=== PATIENT | female | born 1935 | race American Indian/Alaskan Native ===

== ENCOUNTER → 2016-09-04 | Outpatient (CLI) | payer MEDICARE, MEDICAID | END | disposition home or self-care (01) | LOC: MW.CHFP 15:18 | PROVIDERS: ATTEND Emergency Medicine | DX: I10 Essential (primary) hypertension (principal); E11.9 Type 2 diabetes mellitus without complications; K92.2 Gastrointestinal hemorrhage, unspecified | CPT/HCPCS: 36415; 80048; 83036; 85027; G0463 ==

== ENCOUNTER 2016-10-06 09:39 | Day surgery (SDC) | payer MEDICARE, MEDICAID ==
--- NOTE | 2016-10-05 12:33 | PCM.PREANE ---
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 Respiratory: Reports: no symptoms Cardiovascular: Reports: no symptoms GI: Reports: no symptoms - PHYSICAL ASSESSMENT Height: 1.63 m Weight: 59.874 kg ASA Class: 2 Mental Status: alert & oriented x3 Dentition: Reports: dentures, partial, missing tooth/teeth ROM/Head Extension: full Respiratory Status: lungs clear to auscultation bilaterally Cardiovascular Status: regular rate & rhythm, normal S1, S2 - ALLERGIES Allergies/Adverse Reactions: Allergies Allergy/AdvReac Type Severity Reaction Status Date / Time tramadol Allergy Headache Verified 08/17/16 11:59 - BLOOD Blood Available: No - ANESTHESIA PLAN Preop Beta Ninoska: No Anesthesia Type Planned: MAC - ACKNOWLEDGEMENTS Pt an appropriate candidate for the planned anesthesia: Yes Alternatives and risks of anesthesia discussed w pt/guardian: Yes Pt/Guardian understands and agree with anesthesia plan: Yes PreAnesthesia Questionnaire HEENT History: Reports: Hard of hearing, Impaired vision Other HEENT History: wears glasses, top denture, bottom partial, armani hearing aids Cardiovascular History: Reports: Hypertension Respiratory History: Reports: TB Gastrointestinal History: Reports: GERD, GI bleed Other Gastrointestinal History: Heartburn/GERD, gastritis Genitourinary History: Reports: Other (see below) Other Genitourinary History: recent hospitalization for acute kidney injury 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: Musculoskeletal History: Reports: Fracture Other Musculoskeletal History: hx: fractured Wrist, Low and Mid back pain at times Neurological History: Reports: Migraines Other Neuro History: Past hx: Migraines, some headaches Other Psychiatric History: Anxiety with riding car Long trips Endocrine/Metabolic History: Reports: Diabetes, type II, Hypothyroidism Other Endocrine/Metabolic History: Hypothyroidism - Infectious Disease History Infectious Disease History: Reports: Measles - Past Surgical History Head Surgeries/Procedures: Reports: None HEENT Surgical History: Reports: Cataract surgery GI Surgical History: Reports: Cholecystectomy Other Musculoskeletal Surgeries/Procedures:: surgery for fx patella - SUBSTANCE USE Smoking Status *Q: Former Smoker Tobacco Use Within Last Twelve Months: Cigarettes Second Hand Smoke Exposure: No Recreational Drug Use History: No - HOME MEDS Home Medications: Home Meds Aspirin [Halfprin] 81 mg PO BRK 01/21/15 [History] Hydrochlorothiazide 25 mg PO BRK 01/21/15 [History] Levothyroxine Sodium [Synthroid] 100 mcg PO ACBRK 01/21/15 [History] Lisinopril 20 mg PO DAILY 01/21/15 [History] amLODIPine Besylate [Amlodipine Besylate] 10 mg PO DAILY 01/21/15 [History] Calcium Carbonate [Tums] 1 tab.chew PO ASDIRECTED PRN 10/03/16 [History] - CURRENT (IN HOUSE) MEDS Current Meds: Current Medications Lactated Ringer's (Ringers, Lactated) 1,000 mls @ 125 mls/hr IV ASDIRECTED ANA MARÍA
[~2016-10-06 09:39] MED LIST: Lactated Ringers 1,000 ML IV SCH; Propofol 200 MG/20 ML SDV ONE
--- NOTE | 2016-10-06 11:57 | PCM.OPNOTE ---
- General Post-Op/Procedure Note Date of Surgery/Procedure: 10/06/16 Operative Procedure(s): Colonoscopy Pre Op Diagnosis: Change in bowel habits. Abdominal pain. Anemia. Rectal bleeding. Post-Op Diagnosis: Minimal sigmoid diverticulosis Anesthesia Technique: MAC (ASA II) Primary Surgeon: Andre Garzon Landscape Account Manager: Elzbieta Swenson Condition: Good Free Text/Narrative:: Dictation [id number]
[2016-10-06] MEDS ORDERED: Lactated Ringers 1,000 ML IV SCH (12:00)
--- NOTE | 2016-10-06 12:16 | PCM.POSTAN ---
POST ANESTHESIA ASSESSMENT - MENTAL STATUS Mental Status: alert, oriented - RESPIRATORY Respiratory Status: respiratory rate WNL, airway patent - CARDIOVASCULAR CV Status: pulse rate WNL, blood pressure stable - GASTROINTESTINAL GI Status: no symptoms - POST OP HYDRATION Hydration Status: adequate & stable
--- NOTE | 2016-10-06 12:17 | PCM48HPAN ---
Post Anesthesia Note - EVALUATION WITHIN 48HRS OF ANESTHETIC Vital Signs in Normal Range: Yes Patient Participated in Evaluation: Yes Respiratory Function Stable: Yes Airway Patent: Yes Cardiovascular Function Stable: Yes Hydration Status Stable: Yes Pain Control Satisfactory: Yes Nausea and Vomiting Control Satisfactory: Yes Mental Status Recovered: Yes
[2016-10-06 12:25] VITALS: BP 129/61
--- NOTE | 2016-10-06 15:14 | OR ---
SURGEON: Andre Garzon M.D. DATE OF PROCEDURE: 10/06/2016 OPERATION PERFORMED: Colonoscopy. FIELD SERVICE CONSULTANT: neurosurgical physician assistant: Dr. Swenson. ANESTHESIA: MAC. ASA CLASSIFICATION: II. PREOPERATIVE DIAGNOSES: 1. Change in bowel habits. 2. Abdominal pain. 3. Anemia. 4. Rectal bleeding. POSTOPERATIVE DIAGNOSIS: Minimal sigmoid diverticulosis. DESCRIPTION OF PROCEDURE: The patient was taken to the endoscopy room, positioned on the endoscopy table in the left lateral decubitus position. Time-out was called for appropriate identification of the patient and procedure. Monitored anesthesia care was provided. The colonoscope was inserted into the rectum and advanced with minimal difficulty to the cecum, where the colonoscope was retroflexed to visualize the ascending colon from below. The colonoscope was then straightened and slowly withdrawn. Cecum was identified by internal landmarks and external pressure. The cecum, ascending colon, hepatic flexure, transverse colon, splenic flexure, and descending colon showed no tumors, polyps, diverticula, or angiodysplasia. There was no evidence of inflammatory bowel disease. Few small scattered diverticula were noted in the sigmoid colon. No stricture, spasm, or bleeding was noted. No polyps were encountered. The colonoscope was withdrawn to the rectum and retroflexed to visualize the anal orifice from above. Again, no tumors or polyps were seen and there were no acute hemorrhoidal changes. The colonoscope was straightened, the rectum aspirated, and the colonoscope removed. The patient tolerated the procedure well and was taken to recovery room in stable condition. ALMA / TEODORA /[id number]
== END 2016-10-06 12:45 | disposition home or self-care (01) ==
LOC: MW.SDS 09:39
PROVIDERS: ATTEND Surgery
PROC: 0DJD8ZZ Inspection of Lower Intestinal Tract, Via Natural or Artificial Opening Endoscopic (ICD-10-PCS; principal; 2016-10-06)
DX: K57.30 Diverticulosis of large intestine without perforation or abscess without bleeding (principal); I10 Essential (primary) hypertension; E03.9 Hypothyroidism, unspecified; E11.9 Type 2 diabetes mellitus without complications; K21.9 Gastro-esophageal reflux disease without esophagitis; Z88.8 Allergy status to other drugs, medicaments and biological substances; Z79.82 Long term (current) use of aspirin; Z79.899 Other long term (current) drug therapy; Z90.49 Acquired absence of other specified parts of digestive tract; Z98.890 Other specified postprocedural states; Z87.891 Personal history of nicotine dependence; Z86.11 Personal history of tuberculosis; Z98.49 Cataract extraction status, unspecified eye
CPT/HCPCS: 45378; 82962; J7120; J2704

== ENCOUNTER 2019-08-28 13:10 | Emergency (ER) | payer MEDICARE ==
--- NOTE | 2019-08-28 13:32 | EDM.PDOC ---
ED HPI GENERAL MEDICAL PROBLEM - General Chief Complaint: Respiratory Problem Stated Complaint: cough Time Seen by Provider: 08/28/19 13:21 Source of Information: Reports: Patient History Limitations: Reports: No Limitations - History of Present Illness INITIAL COMMENTS - FREE TEXT/NARRATIVE: HISTORY OF PRESENT ILLNESS: Patient is an 84 year old female who reports she has had a cough since Sunday initially white and now progressing to productive with green sputum with occasional wheezing. Has had tactile fever today. Reports generalized weakness and fatigue. Also reports generalized myalgias. Patient has had lower bilateral chest wall pain near lower ribs associated with coughing. Denies any retrosternal chest pain. No syncope. Denies any nausea or vomiting. Has had nonbloody diarrhea. No abdominal pain. Denies any urinary symptoms. No fever or neck stiffness. Denies any lower extremity swelling. No history of smoking. Patient has no history of asthma, COPD or CHF. REVIEW OF SYSTEMS: Other than the symptoms associated with the present events, the following is reported with regard to recent health: General: (+) fever. HENT: (-) congestion. Respiratory: (+) cough. Cardiovascular: (-) chest pain. GI: (-) abdominal pain. : (-) urinary complaints. Musculoskeletal: (+) generalized myalgias Endocrine: (+) generalized fatigue Neurological: (-) localized weakness. Skin: (-) rash PAST MEDICAL HISTORY: reviewed as per nursing notes SOCIAL HISTORY: reviewed as per nursing notes, MEDICATIONS: Per nurse's note ALLERGIES: Per nurse's note, reviewed by me PHYSICAL EXAMINATION: GENERALIZED APPEARANCE: well developed, well nourished in mild distress VITAL SIGNS: Per nurse's note, reviewed by me SKIN: Warm, dry; (-) cyanosis; (-) rash. HEAD: (-) scalp swelling, (-) tenderness. EYES: (-) conjunctival pallor, (-) scleral icterus. ENMT: (-) stridor; mucous membranes moist. NECK: (-) tenderness, (-) stiffness, CHEST AND RESPIRATORY: (-) rales, (-) rhonchi, (+)transient end expiratory wheezes; breath sounds equal bilaterally. HEART AND CARDIOVASCULAR: (-) irregularity; (-) murmur, (-) gallop. ABDOMEN AND GI: Soft; (-) tenderness, (-) guarding, (-) rebound, (-) palpable masses, EXTREMITIES: (-) deformity, (-) edema. NEURO AND PSYCH: Alert. Cranial nerves grossly intact; strength symmetric. gait steady DIAGNOSTICS: CXR: read by radiologist, reviewed by myself EKG: sb at [address]pm[address] no [address] elevation. Labs ordered as below EMERGENCY DEPARTMENT COURSE AND TREATMENT: Patient's condition remained stable during Emergency Department evaluation. Given duoneb here. Given IVF. BUN/cr noted. Pt has a history of kidney disease. Old records reviewed: previous BUN 17 -33, Cr ranging from 1-3.8 on prior records. To follow up with pcp regarding this. Influenza positive. Her fever started today but symptoms since Sunday. However, given her age, will treat. Based on my history, physical exam, and diagnostic evaluation, the patient appears to have symptoms consistent with influenza. There is a normal heart rate, normal oxygen saturation, a normal respiratory pattern and non-diagnostic exam. The patient appeared to be in no distress, appeared well-hydrated and was ambulating in the ED without difficulty. Discharge precautions were given with instructions to return if difficulty breathing, not tolerating oral food or fluids, any respiratory distress, or new symptoms. I encouraged follow-up with the primary care physician in 1-2 days for repeat exam. PLAN AND FOLLOW-UP: Patient received written and verbal instructions regarding this condition. Return to ED immediately with any new or worsening symptoms. Follow up to be arranged by patient with pcp in 1-2 days for further evaluation. Given discharge precautions. Patient expressed verbal understanding. - Related Data Allergies Allergy/AdvReac Type Severity Reaction Status Date / Time tramadol Allergy Headache Verified 08/28/19 13:15 Home Meds: Home Meds Aspirin [Halfprin] 81 mg PO BRK 01/21/15 [History] Hydrochlorothiazide 25 mg PO BRK 01/21/15 [History] Levothyroxine Sodium [Synthroid] 100 mcg PO ACBRK 01/21/15 [History] Lisinopril 20 mg PO DAILY 01/21/15 [History] amLODIPine Besylate [Amlodipine Besylate] 10 mg PO DAILY 01/21/15 [History] Calcium Carbonate [Tums] 1 tab.chew PO ASDIRECTED PRN 10/03/16 [History] Oseltamivir [Tamiflu] 75 mg PO BID 5 Days #10 cap 08/28/19 [Rx] Past Medical History HEENT History: Reports: Hard of Hearing, Impaired Vision Other HEENT History: wears glasses, top denture, bottom partial, armani hearing aids Cardiovascular History: Reports: Hypertension Respiratory History: Reports: TB Gastrointestinal History: Reports: GERD, GI Bleed Other Gastrointestinal History: Heartburn/GERD, gastritis Genitourinary History: Reports: Other (See Below) Other Genitourinary History: 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: Musculoskeletal History: Reports: Fracture Other Musculoskeletal History: hx: fractured Wrist, Low and Mid back pain at times Neurological History: Reports: Migraines Other Neuro History: Past hx: Migraines, some headaches Other Psychiatric History: Anxiety with riding car Long trips Endocrine/Metabolic History: Reports: Diabetes, Type II, Hypothyroidism Other Endocrine/Metabolic History: Hypothyroidism - Infectious Disease History Infectious Disease History: Reports: Chicken Pox - Past Surgical History Head Surgeries/Procedures: Reports: None HEENT Surgical History: Reports: Cataract Surgery Other Musculoskeletal Surgeries/Procedures:: surgery for fx patella Social & Family History - Family History Family Medical History: Noncontributory HEENT: Reports: Impaired Vision Cardiac: Reports: CAD, [place] OBGYN: Reports: Endocrine/Metabolic: Reports: Diabetes, type II - Tobacco Use Smoking Status *Q: Never Smoker - Caffeine Use Caffeine Use: Reports: Coffee, Soda, Tea - Recreational Drug Use Recreational Drug Use: No ED ROS GENERAL - Review of Systems Review Of Systems: See Below (see dictation) ED EXAM, GENERAL - Physical Exam Exam: See Below (see dictation) Course - Vital Signs Last Recorded V/S: Last Vital Signs Temp 97.9 F 08/28/19 15:04 Pulse 56 L 08/28/19 15:04 Resp 20 08/28/19 13:13 BP 147/54 H 08/28/19 15:04 Pulse Ox 94 L 08/28/19 15:04 - Orders/Labs/Meds Orders: Active Orders 24 hr Category Date Time Status EKG 12 Lead [EKG Documentation Completion] [RC] STAT Care 08/28/19 13:51 Active RT Aerosol Therapy [RC] ASDIRECTED Care 08/28/19 15:05 Active CULTURE BLOOD [BC] Stat Lab 08/28/19 13:00 Received CULTURE BLOOD [BC] Stat Lab 08/28/19 14:15 Results Sodium Chloride 0.9% [Normal Saline] 1,000 ml Med 08/28/19 14:52 Active IV .Bolus Blood Culture x2 Reflex Set [OM.PC] Stat Oth 08/28/19 13:27 Ordered Medication Orders Sodium Chloride (Normal Saline) 1,000 mls @ 1,000 mls/hr IV .Bolus ONE Stop: 08/28/19 15:51 Labs: Laboratory Tests 08/28/19 08/28/19 08/28/19 Range/Units 13:00 13:00 13:00 WBC 7.68 (4.0-11.0) K/uL RBC 3.86 L (4.30-5.90) M/uL Hgb 11.6 L (12.0-16.0) g/dL Hct 34.0 L (36.0-46.0) % MCV 88.1 (80.0-98.0) fL MCH 30.1 (27.0-32.0) pg MCHC 34.1 (31.0-37.0) g/dL RDW Std Deviation 43.0 (28.0-62.0) fl RDW Coeff of Candido 13 (11.0-15.0) % Plt Count 256 (150-400) K/uL MPV 9.60 (7.40-12.00) fL Neut % (Auto) 67.7 (48.0-80.0) % Lymph % (Auto) 21.4 (16.0-40.0) % Fergus % (Auto) 10.3 (0.0-15.0) % Eos % (Auto) 0.3 (0.0-7.0) % Baso % (Auto) 0.3 (0.0-1.5) % Neut # (Auto) 5.2 (1.4-5.7) K/uL Lymph # (Auto) 1.6 (0.6-2.4) K/uL Fergus # (Auto) 0.8 (0.0-0.8) K/uL Eos # (Auto) 0.0 (0.0-0.7) K/uL Baso # (Auto) 0.0 (0.0-0.1) K/uL Nucleated RBC % 0.0 /100WBC Nucleated RBCs # 0 K/uL Lactate 0.7 (0.20-2.00) mmol/L Sodium 133 L (136-145) mmol/L Potassium 4.1 (3.5-5.1) mmol/L Chloride 100 (98-107) mmol/L Carbon Dioxide 17.8 L (21.0-32.0) mmol/L BUN 66 H (7.0-18.0) mg/dL Creatinine 2.0 H (0.6-1.0) mg/dL Est Cr Clr Drug Dosing 18.73 mL/min Estimated GFR (MDRD) 23.9 ml/min Glucose 114 H (74-106) mg/dL Calcium 8.4 L (8.5-10.1) mg/dL Total Bilirubin 0.4 (0.2-1.0) mg/dL AST 38 H (15-37) IU/L ALT 29 (14-63) IU/L Alkaline Phosphatase 89 (46-116) U/L Troponin I < 0.050 (0.000-0.056) ng/mL Total Protein 8.5 H (6.4-8.2) g/dL Albumin 3.4 (3.4-5.0) g/dL Globulin 5.1 H (2.6-4.0) g/dL Albumin/Globulin Ratio 0.7 L (0.9-1.6) Meds: Medications Generic Name Dose Route Start Last Admin Trade Name Freq PRN Reason Stop Dose Admin Sodium Chloride 1,000 mls @ 1,000 mls/hr 08/28/19 14:52 Normal Saline IV 08/28/19 15:51 .Bolus ONE Discontinued Medications Generic Name Dose Route Start Last Admin Trade Name Freq PRN Reason Stop Dose Admin Albuterol/Ipratropium 3 ml 08/28/19 15:05 08/28/19 15:11 Duoneb 3.0-0.5 Mg/3 Ml NEB 08/28/19 15:06 3 ml ONETIME ONE Administration Departure - Departure Time of Disposition: 14:57 Disposition: Home, Self-Care 01 Condition: Good Clinical Impression: Influenza A, Renal insufficiency - Discharge Information *PRESCRIPTION DRUG MONITORING PROGRAM REVIEWED*: Not Applicable *COPY OF PRESCRIPTION DRUG MONITORING REPORT IN PATIENT CRISS: Not Applicable Prescriptions: Oseltamivir [Tamiflu] 75 mg PO BID 5 Days #10 cap Instructions: Influenza, Adult, [id number], Chronic Kidney Disease, Adult, [id number], Preventing Chronic Kidney Disease Referrals: Kiersten Hugo [Ordering Only Provider] - 2 Days Forms: ED Department Discharge Additional Instructions: The following information is given to patients seen in the emergency department who are being discharged to home. This information is to outline your options for follow-up care. We provide all patients seen in our emergency department with a follow-up referral. The need for follow-up, as well as the timing and circumstances, are variable depending upon the specifics of your emergency department visit. If you don't have a primary care physician on staff, we will provide you with a referral. We always advise you to contact your personal physician following an emergency department visit to inform them of the circumstance of the visit and for follow-up with them and/or the need for any referrals to a consulting specialist. The emergency department will also refer you to a specialist when appropriate. This referral assures that you have the opportunity for follow-up care with a specialist. All of these measure are taken in an effort to provide you with optimal care, which includes your follow-up. Under all circumstances we always encourage you to contact your private physician who remains a resource for coordinating your care. When calling for follow-up care, please make the office aware that this follow-up is from your recent emergency room visit. If for any reason you are refused follow-up, please contact the [facility] Emergency Department at and asked to speak to the emergency department charge nurse. Sepsis Event Note - Evaluation Sepsis Screening Result: No Definite Risk - Focused Exam Vital Signs: Vital Signs Temp Pulse Resp BP Pulse Ox 08/28/19 15:04 97.9 F 56 L 147/54 H 94 L 08/28/19 13:13 97.9 F 68 20 135/54 L 96 Date Exam was Performed: 08/28/19 Time Exam was Performed: 15:16 - My Orders Last 24 Hours: My Active Orders 08/28/19 13:00 CULTURE BLOOD [BC] Stat 08/28/19 13:27 Blood Culture x2 Reflex Set [OM.PC] Stat 08/28/19 13:51 EKG 12 Lead [EKG Documentation Completion] [RC] STAT 08/28/19 14:15 CULTURE BLOOD [BC] Stat 08/28/19 14:52 Sodium Chloride 0.9% [Normal Saline] 1,000 ml IV .Bolus 08/28/19 15:05 RT Aerosol Therapy [RC] ASDIRECTED - Assessment/Plan Last 24 Hours: My Active Orders 08/28/19 13:00 CULTURE BLOOD [BC] Stat 08/28/19 13:27 Blood Culture x2 Reflex Set [OM.PC] Stat 08/28/19 13:51 EKG 12 Lead [EKG Documentation Completion] [RC] STAT 08/28/19 14:15 CULTURE BLOOD [BC] Stat 08/28/19 14:52 Sodium Chloride 0.9% [Normal Saline] 1,000 ml IV .Bolus 08/28/19 15:05 RT Aerosol Therapy [RC] ASDIRECTED
--- NOTE | 2019-08-28 14:19 | CR ---
Chest: AP frontal chest x-ray was obtained. Comparison: Prior chest x-ray of 08/17/16. Heart size is within normal limits for AP technique. Tortuous thoracic aorta is noted. Slightly widened superior mediastinum is seen. Lungs are clear with no acute parenchymal change. Degenerative change noted within both shoulders. Impression: 1. Findings as noted above believed to be stable. 2. Nothing acute is appreciated on AP chest x-ray. Diagnostic code #2 This report was dictated in [place] Standard Time
[2019-08-28 14:43] LABS: BLOOD UREA NITROGEN,BUN 66 mg/dL (7.0-18.0); CARBON DIOXIDE,CO2 17.8 mmol/L (21.0-32.0); CHLORIDE,CL 100 mmol/L (98-107); GLUCOSE RANDOM 114 mg/dL (74-106); POTASSIUM,K 4.1 mmol/L (3.5-5.1); SODIUM,NA 133 mmol/L (136-145)
[2019-08-28] MEDS ORDERED: Sodium Chloride 0.9% 1,000 ML IV ONE (14:52)
[2019-08-28] MEDS ORDERED: Albuterol/Ipratropium 3.0-0.5 MG/3 ML Neb Soln NEB ONE (15:05)
[2019-08-28 16:17] VITALS: BP 159/48; PULSE 67
== END 2019-08-28 15:59 | disposition home or self-care (01) ==
LOC: MW.ED 13:10
DX: J10.1 Influenza due to other identified influenza virus with other respiratory manifestations (principal); N28.9 Disorder of kidney and ureter, unspecified; H91.93 Unspecified hearing loss, bilateral; I10 Essential (primary) hypertension; E11.9 Type 2 diabetes mellitus without complications; E03.9 Hypothyroidism, unspecified; Z88.5 Allergy status to narcotic agent; Z79.82 Long term (current) use of aspirin; Z79.899 Other long term (current) drug therapy; Z79.890 Hormone replacement therapy
CPT/HCPCS: 36415; 71045; 80053; 83605; 84484; 85025; 87040; 87186; 87804; 93005; 94640; 96360; 99285; J7030; 87077; 99284; J7620-GY

== ENCOUNTER 2020-04-20 05:33 | Inpatient (IN) | payer MEDICARE ==
[2020-04-20] MEDS ORDERED: Ondansetron 4 MG/2 ML SDV IVPUSH ONE (05:59)
[2020-04-20] MEDS ORDERED: Sodium Chloride 0.9% 10 ML Syringe FLUSH PRN (05:59)
[2020-04-20] MEDS ORDERED: Sodium Chloride 0.9% 2.5 ML Syringe FLUSH PRN (05:59)
[2020-04-20] MEDS ORDERED: Sodium Chloride 0.9% 1,000 ML IV ONE (05:59)
[2020-04-20] MEDS ORDERED: Morphine 4 MG/ML Syringe IVPUSH ONE (05:59)
--- NOTE | 2020-04-20 06:10 | EDM.PDOC ---
ED HPI GENERAL MEDICAL PROBLEM - General Chief Complaint: Gastrointestinal Problem Stated Complaint: ABDOMINAL PAIN Time Seen by Provider: 04/20/20 05:51 Source of Information: Reports: Patient - History of Present Illness INITIAL COMMENTS - FREE TEXT/NARRATIVE: HISTORY AND PHYSICAL: History of present illness: This is an 84-year-old female with history significant for hypertension, diabetes (reports is no longer on her metformin secondary to acute renal injury diagnosis), status post cholecystectomy, diverticulitis who presents the ER today complaining of abdominal pain for 1 day. Patient reports that she started out with an upset stomach yesterday evening and got progressively worse around 3:30 in the morning. Patient reports she is had nausea with no vomiting, diarrhea, constipation. Patient denies any fevers, shakes, chills, dysuria, frequency, urgency, melena, bright red blood per rectum, chest pain, shortness of breath. Patient reports that she did have one watery bowel movement this morning. 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 She reports that her last test was yesterday (Sunday) although she did not work yesterday. She reports her test yesterday was negative. Patient has a history significant for hypertension, diabetes, kidney problems. Patient denies any liver, lung, heart disease, coronary disease, strokes. Patient reports that she has a history of diverticulitis in the past. Patient reports only abdominal surgery is a cholecystectomy. Patient denies any tobacco alcohol or drugs. Patient reports allergies to Demerol in the past. 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 Patient reports that she gets tested every 3 days for coronavirus and her last test was yesterday and it was negative. Review of systems: As per history of present illness and below otherwise all systems reviewed and negative. Past medical history: As per history of present illness and as reviewed below otherwise noncontributory. Surgical history: As per history of present illness and as reviewed below otherwise noncontributory. Social history: No reported history of drug or alcohol abuse. Family history: As per history of present illness and as reviewed below otherwise noncontributory. Physical exam: Constitutional: Patient is oriented to person, place, and time. Appears well-developed and well-nourished. No distress. HEENT: Moist mucous membranes Head: Normocephalic and atraumatic Eyes: Right eye exhibits no discharge. Left eye exhibits no discharge. No scleral icterus Neck: Normal range of motion. No tracheal deviation present. Cardiovascular: Normal rate and regular rhythm. Pulmonary: Effort normal, no respiratory distress. Abd: Soft, nondistended, normal active bowel sounds, no rebound/guarding, no psoas or obturator signs, no tenderness at Mcberney's point, no Raza's sign. Pt does not present with an exam that would be consistent with an acute surgical abdomen. Patient with mild diffuse tenderness throughout her abdomen greatest in the lower abdomen. Within the lower abdomen, right lower quadrant discomfort was slightly greater than left lower quadrant discomfort. Musculoskeletal: Normal range of motion Neurologic: Alert and oriented to person, place and time. Skin: [place], warm and dry. Psychiatric: Normal mood and affect. Behavior is normal. Judgment and thought content normal. Nursing note and vital signs have been reviewed Diagnostics: CBC, CMP, lipase CT of the abdomen pelvis without IV contrast (patient reports history of kidney injury in the past) Coronavirus test EKG: Normal sinus rhythm heart rate of [address]-T wave abnormalities Normal axis No evidence of ST elevation SC As interpreted by ER physician: [employer]: Zofran 4 mg IV Morphine 4 mg IV NSS x1 L IV Assessment and plan: #1. Abdominal pain: This is an 84-year-old female who presents the ER today secondary to diffuse abdominal discomfort greatest in the lower abdomen which began yesterday evening is an upset stomach and progressed this morning at around 3:30 AM. Although patient does not present with an acute surgical abdomen at this time, she does have significant discomfort in her right lower quadrant as well as her left lower quadrant. Patient will have basic labs drawn including a CBC, CMP, lipase and will obtain a CT scan of the abdomen pelvis without IV contrast for further evaluation of her abdomen. Patient has been given Zofran 4 mg IV, morphine 4 mg IV and NSS x1 L and will be reassessed. MDM includes diverticulitis, appendicitis, abdominal aortic pathology, gastroenteritis amongst others. 7:10 AM: CT report discussed with radiology. There is an area of inflammation in the lower abdomen/pelvis with small amount of extraluminal air consistent with likely diverticulitis with microperforation. Radiology has recommended a repeat CT scan of the abdomen pelvis with oral contrast as an inpatient. Case has been discussed with Dr. Nolan who is agreed to assist us with observation care of this patient, we will initiate Zosyn 3.75 mg IV in the ED. #2. Hypertension: Upon presentation the ED, the patient's blood pressure is noted to be elevated. The patient reports that she did not take her morning blood pressure medicines today secondary to her abdominal discomfort. Patient has been given her lisinopril point milligrams p.o. as well as her amlodipine 10 mg p.o. here in the ED to assist with her hypertension. lower abdominal Pain Score (Numeric/FACES): 10 - Related Data Allergies Allergy/AdvReac Type Severity Reaction Status Date / Time tramadol Allergy Headache Verified 04/20/20 05:37 Home Meds: Home Meds Aspirin [Halfprin] 81 mg PO BRK 01/21/15 [History] Levothyroxine Sodium [Synthroid] 112 mcg PO ACBRK 01/21/15 [History] Lisinopril 20 mg PO DAILY 01/21/15 [History] amLODIPine Besylate [Amlodipine Besylate] 10 mg PO DAILY 01/21/15 [History] Calcium Carbonate [Tums] 1 tab.chew PO ASDIRECTED PRN 10/03/16 [History] Past Medical History HEENT History: Reports: Hard of Hearing, Impaired Vision Other HEENT History: wears glasses, top denture, bottom partial, armani hearing aids Cardiovascular History: Reports: Hypertension Respiratory History: Reports: TB Gastrointestinal History: Reports: GERD, GI Bleed Other Gastrointestinal History: Heartburn/GERD, gastritis Genitourinary History: Reports: Other (See Below) Other Genitourinary History: recent hospitalization for acute kidney injury 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: Musculoskeletal History: Reports: Fracture Other Musculoskeletal History: hx: fractured Wrist, Low and Mid back pain at times Neurological History: Reports: Migraines Other Neuro History: Past hx: Migraines, some headaches Other Psychiatric History: Anxiety with riding car Long trips Endocrine/Metabolic History: Reports: Diabetes, Type II, Hypothyroidism Other Endocrine/Metabolic History: Hypothyroidism - Infectious Disease History Infectious Disease History: Reports: Chicken Pox, Measles - Past Surgical History Head Surgeries/Procedures: Reports: None HEENT Surgical History: Reports: Cataract Surgery Other Musculoskeletal Surgeries/Procedures:: surgery for fx patella Social & Family History - Family History Family Medical History: Noncontributory HEENT: Reports: Impaired Vision Cardiac: Reports: CAD, SC OBGYN: Reports: Endocrine/Metabolic: Reports: Diabetes, type II - Tobacco Use Smoking Status *Q: Former Smoker Used Tobacco, but Quit: Yes Month/Year Tobacco Last Used: 2011 - Caffeine Use Caffeine Use: Reports: Coffee, Soda, Tea - Recreational Drug Use Recreational Drug Use: No ED ROS GENERAL - Review of Systems Review Of Systems: See Below ED EXAM, GENERAL - Physical Exam Exam: See Below Course - Vital Signs Last Recorded V/S: Last Vital Signs Temp 96.7 F L 04/20/20 05:41 Pulse 78 04/20/20 05:51 Resp 20 04/20/20 05:51 BP 216/69 H 04/20/20 06:49 Pulse Ox 96 04/20/20 05:51 - Orders/Labs/Meds Orders: Active Orders 24 hr Category Date Time Status EKG Documentation Completion [RC] AM Care 04/20/20 06:11 Active Abdomen Pelvis wo Cont [CT] Stat Exams 04/20/20 06:00 Taken CORONAVIRUS COVID-19 PCR PHL Stat Lab 04/20/20 05:59 Ordered Sodium Chloride 0.9% [Normal Saline] 1,000 ml Med 04/20/20 05:59 Active IV .Bolus Sodium Chloride 0.9% [Saline Flush] Med 04/20/20 05:59 Active 10 ml FLUSH ASDIRECTED PRN Sodium Chloride 0.9% [Saline Flush] Med 04/20/20 05:59 Active 2.5 ml FLUSH ASDIRECTED PRN Saline Lock Insert [OM.PC] Stat Oth 04/20/20 05:59 Ordered Medication Orders Sodium Chloride (Normal Saline) 1,000 mls @ 999 mls/hr IV .Bolus ONE Stop: 04/20/20 06:59 Last Admin: 04/20/20 06:10 Dose: 999 mls/hr Documented by: [email or web address] Sodium Chloride (Saline Flush) 10 ml FLUSH ASDIRECTED PRN PRN Reason: Keep Vein Open Sodium Chloride (Saline Flush) 2.5 ml FLUSH ASDIRECTED PRN PRN Reason: Keep Vein Open Labs: Laboratory Tests 04/20/20 04/20/20 04/20/20 Range/Units 05:40 05:40 06:06 WBC 12.54 H (4.0-11.0) K/uL RBC 4.16 L (4.30-5.90) M/uL Hgb 12.5 (12.0-16.0) g/dL Hct 36.3 (36.0-46.0) % MCV 87.3 (80.0-98.0) fL MCH 30.0 (27.0-32.0) pg MCHC 34.4 (31.0-37.0) g/dL RDW Std Deviation 45.2 (28.0-62.0) fl RDW Coeff of [place] 14 (11.0-15.0) % Plt Count 252 (150-400) K/uL MPV 9.60 (7.40-12.00) fL Neut % (Auto) 76.2 (48.0-80.0) % Lymph % (Auto) 19.0 (16.0-40.0) % [place] % (Auto) 3.0 (0.0-15.0) % Eos % (Auto) 1.7 (0.0-7.0) % Baso % (Auto) 0.1 (0.0-1.5) % Neut # (Auto) 9.6 H (1.4-5.7) K/uL Lymph # (Auto) 2.4 (0.6-2.4) K/uL [place] # (Auto) 0.4 (0.0-0.8) K/uL Eos # (Auto) 0.2 (0.0-0.7) K/uL Baso # (Auto) 0.0 (0.0-0.1) K/uL Nucleated RBC % 0.0 /100WBC Nucleated RBCs # 0 K/uL Sodium 142 (136-145) mmol/L Potassium 4.4 (3.5-5.1) mmol/L Chloride 109 H (98-107) mmol/L Carbon Dioxide 17.7 L (21.0-32.0) mmol/L BUN 25 H (7.0-18.0) mg/dL Creatinine 1.3 H (0.6-1.0) mg/dL Est Cr Clr Drug Dosing 28.81 mL/min Estimated GFR (MDRD) 39.2 ml/min Glucose 150 H (74-106) mg/dL Calcium 8.5 (8.5-10.1) mg/dL Total Bilirubin 0.3 (0.2-1.0) mg/dL AST 17 (15-37) IU/L ALT 18 (14-63) IU/L Alkaline Phosphatase 109 (46-116) U/L Total Protein 8.1 (6.4-8.2) g/dL Albumin 3.4 (3.4-5.0) g/dL Globulin 4.7 H (2.6-4.0) g/dL Albumin/Globulin Ratio 0.7 L (0.9-1.6) Lipase 172 (73-393) U/L Urine Color YELLOW Urine Appearance CLEAR Urine pH 5.5 (5.0-8.0) Ur Specific [place] >= 1.030 (1.001-1.035) Urine Protein >=300 H (NEGATIVE) mg/dL Urine Glucose (UA) NEGATIVE (NEGATIVE) mg/dL Urine Ketones NEGATIVE (NEGATIVE) mg/dL Urine Occult Blood TRACE-INTACT H (NEGATIVE) Urine Nitrite NEGATIVE (NEGATIVE) Urine Bilirubin NEGATIVE (NEGATIVE) Urine Urobilinogen 0.2 (<2.0) EU/dL Ur Leukocyte Esterase NEGATIVE (NEGATIVE) Urine RBC 0-2 (0-2/HPF) Urine WBC 0-2 (0-5/HPF) Ur Epithelial Cells FEW (NONE-FEW) Urine Bacteria FEW (NEGATIVE) Urine Mucus LIGHT (NONE-MOD) Meds: Medications Generic Name Dose Route Start Last Admin Trade Name Reguloq PRN Reason Stop Dose Admin Sodium Chloride 1,000 mls @ 999 mls/hr 04/20/20 05:59 04/20/20 06:10 Normal Saline IV 04/20/20 06:59 999 mls/hr .Bolus ONE Administration Sodium Chloride 10 ml 04/20/20 05:59 Saline Flush FLUSH ASDIRECTED PRN Keep Vein Open Sodium Chloride 2.5 ml 04/20/20 05:59 Saline Flush FLUSH ASDIRECTED PRN Keep Vein Open Discontinued Medications Generic Name Dose Route Start Last Admin Trade Name Freq PRN Reason Stop Dose Admin Amlodipine Besylate 10 mg 04/20/20 06:38 04/20/20 06:49 Norvasc PO 04/20/20 06:39 10 mg ONETIME ONE Administration Lisinopril 20 mg 04/20/20 06:38 04/20/20 06:43 Prinivil PO 04/20/20 06:39 20 mg ONETIME ONE Administration Morphine Sulfate 4 mg 04/20/20 05:59 04/20/20 06:10 Morphine IVPUSH 04/20/20 06:00 4 mg ONETIME ONE Administration Ondansetron HCl 4 mg 04/20/20 05:59 04/20/20 06:10 Zofran IVPUSH 04/20/20 06:00 4 mg ONETIME ONE Administration Departure - Departure Time of Disposition: 07:12 Disposition: Admitted As Inpatient 68 Condition: Good Clinical Impression: Diverticulitis, Diverticulitis of intestine with perforation - Discharge Information Referrals: Judson Fulton MD [Primary Care Provider] - Forms: ED Department Discharge Sepsis Event Note (ED) - Evaluation Sepsis Screening Result: No Definite Risk - Focused Exam Vital Signs: Vital Signs Temp Pulse Resp BP BP Pulse Ox 04/20/20 06:49 216/69 H 04/20/20 06:43 216/69 H 04/20/20 05:51 78 20 237/75 H 96 04/20/20 05:41 96.7 F L 73 18 237/85 H 98 - My Orders Last 24 Hours: My Active Orders 04/20/20 05:59 CORONAVIRUS COVID-19 PCR PHL Stat Sodium Chloride 0.9% [Normal Saline] 1,000 ml IV .Bolus Sodium Chloride 0.9% [Saline Flush] 10 ml FLUSH ASDIRECTED PRN Sodium Chloride 0.9% [Saline Flush] 2.5 ml FLUSH ASDIRECTED PRN Saline Lock Insert [OM.PC] Stat 04/20/20 06:00 Abdomen Pelvis wo Cont [CT] Stat 04/20/20 06:11 EKG Documentation Completion [RC] AM - Assessment/Plan Last 24 Hours: My Active Orders 04/20/20 05:59 CORONAVIRUS COVID-19 PCR PHL Stat Sodium Chloride 0.9% [Normal Saline] 1,000 ml IV .Bolus Sodium Chloride 0.9% [Saline Flush] 10 ml FLUSH ASDIRECTED PRN Sodium Chloride 0.9% [Saline Flush] 2.5 ml FLUSH ASDIRECTED PRN Saline Lock Insert [OM.PC] Stat 04/20/20 06:00 Abdomen Pelvis wo Cont [CT] Stat 04/20/20 06:11 EKG Documentation Completion [RC] AM
[2020-04-20] MEDS ORDERED: amLODIPine 5 MG Tab PO ONE (06:38)
[2020-04-20] MEDS ORDERED: Lisinopril 10 MG Tab PO ONE (06:38)
[2020-04-20 06:43] LABS: CARBON DIOXIDE,CO2 17.7 mmol/L (21.0-32.0); POTASSIUM,K 4.4 mmol/L (3.5-5.1)
[2020-04-20] MEDS ORDERED: Piperacillin/Tazobactam 3.375 GM in Sodium Chloride 0.9% 50 ML IV ONE (07:08)
--- NOTE | 2020-04-20 07:08 | CT ---
INDICATION: Lower abdominal pain COMPARISON: August 09, 2016 TECHNIQUE: CT examination of the abdomen and pelvis was performed without intravenous contrast. Thin section axial images were obtained from the lung bases through the pubic symphysis. Oral contrast was not administered. Please note that all CT scans at this facility use dose modulation, iterative reconstruction, and/or weight-based dosing when appropriate to reduce radiation dose to as low as reasonably achievable. FINDINGS: LUNG BASES: Linear opacities are likely related to atelectasis or scarring.The heart size is normal at the lung bases. LIVER/BILIARY SYSTEM:The liver is normal in size. Mildly prominent extrahepatic biliary ductal system similar in appearance to the prior study likely related to age and prior cholecystectomy.The gallbladder is surgically absent ADRENALS: Normal non-contrast appearance KIDNEYS, URETERS and BLADDER:The kidneys appear normal given lack of intravenous contrast. No visible mass, calculus or hydronephrosis. The ureters and bladder as visualized appear normal. SPLEEN:Normal non-contrast appearance. PANCREAS: Normal non-contrast appearance. RETROPERITONEUM and MESENTERY: There is no mass, adenopathy or aortic aneurysm. Atherosclerotic vascular calcifications without laurie aneurysmal dilation GASTROINTESTINAL SYSTEM: There are findings of diverticulitis in the deep central pelvis. There are focal areas gas best seen on axial image number 114 and what is probably a small collection on axial image number 113 measuring about 1.7 centimeters. This is adjacent to but apparently not arising from the sigmoid and is probably small-bowel diverticulitis. A repeat study with oral contrast may better delineate the anatomy. PELVIS: No mass, adenopathy or free fluid. OSSEOUS STRUCTURES and ABDOMINAL WALL: There is an age-appropriate appearance of the osseous structures.No significant abdominal wall defect. OTHER: No free fluid or free air. IMPRESSION: Findings of diverticulitis with a small collection measuring about 1.7 centimeters in the deep central pelvis. There is also a small amount of localized extraluminal air in this area. This is adjacent to but not arising from the sigmoid and is probably small bowel diverticulitis. A follow up study with oral contrast may prove useful to further delineate the anatomy. Discussed with Dr.Maged Tuttle at 7 a.m. on April 20, [address] all [address] scans at this facility use dose modulation, iterative reconstruction, and/or weight-based dosing when appropriate to reduce radiation dose to as low as reasonably achievable. Dictated by Jared Garcia MD @ Apr 20 2020 6:52AM Signed by Dr. Jared Garcia @ Apr 20 2020 7:07AM
[2020-04-20] MEDS ORDERED: Ondansetron 4 MG/2 ML SDV IVPUSH PRN (07:55)
--- NOTE | 2020-04-20 08:08 | PCM.HP.2 ---
H&P History of Present Illness - General Date of Service: 04/20/20 Admit Problem/Dx: Admission Diagnosis/Problem Admission Diagnosis/Problem Diverticulitis Source of Information: Patient History Limitations: Reports: No Limitations - History of Present Illness Initial Comments - Free Text/Narative: This 84 year old female with pmh of HTN and DM type 2 presented to the ED with complaints of abdominal pain and nause x 1 day, she reports the pain worsened significantly around 0300 this morning which prompted her visit to the ED. She denies chest pain or SOB. No fevers, reports mild chills. Small amount of diarrhea. The stool was not bloody or black in color. She reports she has not had a colonoscopy. She had diverticulitis once before and was admitted a few years ago. She denies recent changes in bowel habits. She does not smoke, no alcohol use and no recreational drug use. In the ED leukocytosis noted at 12,540 platelets 252, Cl 109, Bicarb 17 [address] abd/pelvis reveals diverticulitis with small collection measuring about 1.7 cm in the deep central pelvis with small amount of localized extraluminal air in this area, no arising from sigmoid and is probably small bowel diverticulitis. She was treated with I L NS bolus and Zosyn. BP quite elevated in the ED, given her home medications. BP improved slightly to 180-[address] Fulton lower abdominal Pain Score (Numeric/FACES): 10 - Related Data Allergies/Adverse Reactions: Allergies Allergy/AdvReac Type Severity Reaction Status Date / Time tramadol Allergy Headache Verified 04/20/20 05:37 Home Medications: Home Meds Aspirin [Halfprin] 81 mg PO BRK 01/21/15 [History] Levothyroxine Sodium [Synthroid] 112 mcg PO ACBRK 01/21/15 [History] Lisinopril 20 mg PO DAILY 01/21/15 [History] amLODIPine Besylate [Amlodipine Besylate] 10 mg PO DAILY 01/21/15 [History] Calcium Carbonate [Tums] 1 tab.chew PO ASDIRECTED PRN 10/03/16 [History] Past Medical History HEENT History: Reports: Hard of Hearing, Impaired Vision Other HEENT History: wears glasses, top denture, bottom partial, armani hearing aids Cardiovascular History: Reports: Hypertension. Denies: Afib, CAD Respiratory History: Reports: TB Gastrointestinal History: Reports: GERD, GI Bleed Genitourinary History: Reports: Other (See Below) Other Genitourinary History: recent hospitalization for acute kidney injury [employer] History: Reports: Musculoskeletal History: Reports: Fracture Other Musculoskeletal History: hx: fractured Wrist, Low and Mid back pain at times Neurological History: Reports: Migraines Other Neuro History: Past hx: Migraines, some headaches Other Psychiatric History: Anxiety with riding car Long trips Endocrine/Metabolic History: Reports: Diabetes, Type II, Hypothyroidism Other Endocrine/Metabolic History: Hypothyroidism - Infectious Disease History Infectious Disease History: Reports: Chicken Pox, Measles - Past Surgical History Head Surgeries/Procedures: Reports: None HEENT Surgical History: Reports: Cataract Surgery Other Musculoskeletal Surgeries/Procedures:: surgery for fx patella Social & Family History - Family History Family Medical History: Noncontributory HEENT: Reports: Impaired Vision Cardiac: Reports: CAD, [place] OBGYN: Reports: Endocrine/Metabolic: Reports: Diabetes, type II - Tobacco Use Smoking Status *Q: Former Smoker Used Tobacco, but Quit: Yes Month/Year Tobacco Last Used: 2011 - Caffeine Use Caffeine Use: Reports: Coffee, Soda, Tea - Alcohol Use Alcohol Use History: No - Recreational Drug Use Recreational Drug Use: No - Living Situation & Occupation Living situation: Reports: with Family Occupation: Retired H&P Review of Systems - Review of Systems: Review Of Systems: See Below General: Reports: Malaise. Denies: Fever, Chills Pulmonary: Reports: No Symptoms. Denies: Shortness of Breath Cardiovascular: Reports: No Symptoms. Denies: Chest Pain Gastrointestinal: Reports: Abdominal Pain (RLQ and middle abdomen), Diarrhea, Nausea. Denies: Black Stool, Bloody Stool, Vomiting Genitourinary: Reports: No Symptoms. Denies: Dysuria, Frequency, Burning Musculoskeletal: Reports: No Symptoms Skin: Reports: No Symptoms Psychiatric: Reports: No Symptoms Neurological: Reports: No Symptoms Hematologic/Lymphatic: Reports: No Symptoms Immunologic: Reports: No Symptoms Exam - Exam Exam: See Below - Vital Signs Vital Signs: Last Vital Signs Temp 96.7 F L 04/20/20 05:41 Pulse 69 04/20/20 07:46 Resp 16 04/20/20 07:46 BP 207/83 H 04/20/20 07:46 Pulse Ox 96 04/20/20 07:46 Weight: 58.967 kg - Exam General: Alert, Oriented, Cooperative HEENT: Conjunctiva Clear, Mucosa Moist & [place], Posterior Pharynx Clear Lungs: Clear to Auscultation, Normal Respiratory Effort Cardiovascular: Regular Rate, Regular Rhythm Extremities: Normal Inspection, Normal Range of Motion, Non-Tender, No Pedal Edema Neuro Extensive - Mental Status: Alert, Oriented x3 Neuro Extensive - Motor, Sensory, Reflexes: CN II-XII Intact Psychiatric: Alert, Normal Affect, Normal Mood - Patient Data Lab Results Last 24 hrs: Laboratory Results - last 24 hr 04/20/20 04/20/20 04/20/20 Range/Units 05:40 05:40 06:06 WBC 12.54 H (4.0-11.0) K/uL RBC 4.16 L (4.30-5.90) M/uL Hgb 12.5 (12.0-16.0) g/dL Hct 36.3 (36.0-46.0) % MCV 87.3 (80.0-98.0) fL MCH 30.0 (27.0-32.0) pg MCHC 34.4 (31.0-37.0) g/dL RDW Std Deviation 45.2 (28.0-62.0) fl RDW Coeff of Candido 14 (11.0-15.0) % Plt Count 252 (150-400) K/uL MPV 9.60 (7.40-12.00) fL Neut % (Auto) 76.2 (48.0-80.0) % Lymph % (Auto) 19.0 (16.0-40.0) % Barton % (Auto) 3.0 (0.0-15.0) % Eos % (Auto) 1.7 (0.0-7.0) % Baso % (Auto) 0.1 (0.0-1.5) % Neut # (Auto) 9.6 H (1.4-5.7) K/uL Lymph # (Auto) 2.4 (0.6-2.4) K/uL Barton # (Auto) 0.4 (0.0-0.8) K/uL Eos # (Auto) 0.2 (0.0-0.7) K/uL Baso # (Auto) 0.0 (0.0-0.1) K/uL Nucleated RBC % 0.0 /100WBC Nucleated RBCs # 0 K/uL Sodium 142 (136-145) mmol/L Potassium 4.4 (3.5-5.1) mmol/L Chloride 109 H (98-107) mmol/L Carbon Dioxide 17.7 L (21.0-32.0) mmol/L BUN 25 H (7.0-18.0) mg/dL Creatinine 1.3 H (0.6-1.0) mg/dL Est Cr Clr Drug Dosing 28.81 mL/min Estimated GFR (MDRD) 39.2 ml/min Glucose 150 H (74-106) mg/dL Calcium 8.5 (8.5-10.1) mg/dL Total Bilirubin 0.3 (0.2-1.0) mg/dL AST 17 (15-37) IU/L ALT 18 (14-63) IU/L Alkaline Phosphatase 109 (46-116) U/L Total Protein 8.1 (6.4-8.2) g/dL Albumin 3.4 (3.4-5.0) g/dL Globulin 4.7 H (2.6-4.0) g/dL Albumin/Globulin Ratio 0.7 L (0.9-1.6) Lipase 172 (73-393) U/L Urine Color YELLOW Urine Appearance CLEAR Urine pH 5.5 (5.0-8.0) Ur Specific [place] >= 1.030 (1.001-1.035) Urine Protein >=300 H (NEGATIVE) mg/dL Urine Glucose (UA) NEGATIVE (NEGATIVE) mg/dL Urine Ketones NEGATIVE (NEGATIVE) mg/dL Urine Occult Blood TRACE-INTACT H (NEGATIVE) Urine Nitrite NEGATIVE (NEGATIVE) Urine Bilirubin NEGATIVE (NEGATIVE) Urine Urobilinogen 0.2 (<2.0) EU/dL Ur Leukocyte Esterase NEGATIVE (NEGATIVE) Urine RBC 0-2 (0-2/HPF) Urine WBC 0-2 (0-5/HPF) Ur Epithelial Cells FEW (NONE-FEW) Urine Bacteria FEW (NEGATIVE) Urine Mucus LIGHT (NONE-MOD) Result Diagrams: 04/20/20 05:40 04/20/20 05:40 Sepsis Event Note - Evaluation Sepsis Screening Result: No Definite Risk - Focused Exam Vital Signs: Vital Signs Temp Pulse Resp BP BP Pulse Ox 04/20/20 07:46 69 16 207/83 H 96 04/20/20 06:49 216/69 H 04/20/20 06:43 216/69 H 04/20/20 05:51 78 20 237/75 H 96 04/20/20 05:41 96.7 F L 73 18 237/85 H 98 - Problem List (1) Diverticulitis of intestine with perforation SNOMED Code(s): 227030090, 017595548 ICD Code: K57.80 - DVTRCLI OF INTEST, PART UNSP, W PERF AND ABSCESS W/O BLEED Status: Acute Current Visit: Yes Qualifiers: Diverticulitis site: small intestine Diverticulitis bleeding: without bleeding Qualified Code(s): K57.00 - Diverticulitis of small intestine with perforation and abscess without bleeding (2) HTN (hypertension) SNOMED Code(s): 48513665 ICD Code: I10 - ESSENTIAL (PRIMARY) HYPERTENSION Status: Chronic Current Visit: Yes Qualifiers: Hypertension type: essential hypertension Qualified Code(s): I10 - Essential (primary) hypertension (3) DM type 2 (diabetes mellitus, type 2) SNOMED Code(s): 67894643 ICD Code: E11.9 - TYPE 2 DIABETES MELLITUS WITHOUT COMPLICATIONS Status: Chronic Current Visit: Yes Qualifiers: Diabetes mellitus curve cleaner insulin use: without usp use Diabetes mellitus complication status: without complication Qualified Code(s): E11.9 - Type 2 diabetes mellitus without complications Problem List Initiated/Reviewed/Updated: Yes Orders Last 24hrs: Active Orders 24 hr Category Date Time Status Patient Status [ADT] Routine ADT 04/20/20 07:09 Active Antiembolic Devices [RC] PER UNIT ROUTINE Care 04/20/20 07:55 Active EKG Documentation Completion [RC] AM Care 04/20/20 06:11 Active Intake and Output [RC] QSHIFT Care 04/20/20 07:55 Active Oxygen Therapy [RC] PRN Care 04/20/20 07:54 Active Up With Assistance [RC] ASDIRECTED Care 04/20/20 07:54 Active VTE/DVT Education [RC] PER UNIT ROUTINE Care 04/20/20 07:54 Active Vital Signs [RC] Q4H Care 04/20/20 07:54 Active NPO [Nothing Per Oral Diet] [DIET] Diet 04/20/20 Breakfast Active CBC WITH AUTO DIFF [HEME] AM Lab 04/21/20 05:11 Ordered CBC WITH AUTO DIFF [HEME] AM Lab 04/22/20 05:11 Ordered CBC WITH AUTO DIFF [HEME] AM Lab 04/23/20 05:11 Ordered COMPREHENSIVE METABOLIC PN,CMP [CHEM] AM Lab 04/21/20 05:11 Ordered COMPREHENSIVE METABOLIC PN,CMP [CHEM] AM Lab 04/22/20 05:11 Ordered COMPREHENSIVE METABOLIC PN,CMP [CHEM] AM Lab 04/23/20 05:11 Ordered CORONAVIRUS COVID-19 KALLI [MOLEC] Stat Lab 04/20/20 07:42 Received Morphine Med 04/20/20 07:54 Active 2 mg IVPUSH Q4H PRN Ondansetron [Zofran] Med 04/20/20 07:55 Active 4 mg IVPUSH Q4H PRN Sodium Chloride 0.9% [Normal Saline] 1,000 ml Med 04/20/20 08:00 Active IV Q8H Sodium Chloride 0.9% [Saline Flush] Med 04/20/20 05:59 Active 10 ml FLUSH ASDIRECTED PRN Sodium Chloride 0.9% [Saline Flush] Med 04/20/20 05:59 Active 2.5 ml FLUSH ASDIRECTED PRN Saline Lock Insert [OM.PC] Stat Oth 04/20/20 05:59 Ordered Sequential Compression Device [OM.PC] Per Unit Routine Oth 04/20/20 07:55 Ordered Resuscitation Status Routine Resus Stat 04/20/20 07:54 Ordered Medication Orders Sodium Chloride (Normal Saline) 1,000 mls @ 125 mls/hr IV Q8H ANA MARÍA Morphine Sulfate (Morphine) 2 mg IVPUSH Q4H PRN PRN Reason: Pain (severe 7-10) Ondansetron HCl (Zofran) 4 mg IVPUSH Q4H PRN PRN Reason: Nausea Sodium Chloride (Saline Flush) 10 ml FLUSH ASDIRECTED PRN PRN Reason: Keep Vein Open Last Admin: 04/20/20 07:40 Dose: 10 ml Documented by: MURDNIC Sodium Chloride (Saline Flush) 2.5 ml FLUSH ASDIRECTED PRN PRN Reason: Keep Vein Open Last Admin: 04/20/20 07:40 Dose: 2.5 ml Documented by: MURDNIC Assessment/Plan Comment:: This 84 year old female admitted acute small bowel diverticulitis 1. Acute small bowel diverticulitis with microperforation - Change to inpatient status. - NPO - NS 125 mls/hr - Zosyn 3.725 mg IV Q6hr - Stool Studies - Consult Dr Maldonado, General surgery 2. HTN: - elevated, Labetolol PRN ordered - Will monitor 3. DM Type 2 - BS check every 6 hours - Novolog SSI VTE prophylaxis: Heparin Dispo: 2-3 days, changed to inpatient
[2020-04-20] MEDS: Sodium Chloride 0.9% 1,000 ML IV SCH ×2 (10:01→18:08)
[2020-04-20] MEDS: Labetalol 100 MG/20 ML MDV IVPUSH PRN (12:35)
[2020-04-20] MEDS: Pantoprazole 40 MG in Sodium Chloride 0.9% 10 ML IV SCH (12:39)
[2020-04-20] MEDS: Piperacillin/Tazobactam 2.25 GM in Sodium Chloride 0.9% 50 ML IV SCH ×2 (12:44→19:11)
[2020-04-20] MEDS: Heparin Sodium 5,000 Units/ML Vial SUBCUT SCH (13:20)
--- NOTE | 2020-04-20 15:34 | PCM.SN.2 ---
- Free Text/Narrative Note: pt seen, chart reviewed; 1.7cm collection probably too small to be drained; agreed with NPO/PPI/IVF/iv abx till pain free, then po, then home; maybe fu colonoscopy 3 mos from now AND pain free; abx 3 wks at least; if not progressing as expected, requireing emergency surgery, pt will get a Busby procedure; as pt is an octagenerean, and DM/HTN, pt may have problem in extubation, as well as take more days to recuberate, more than a critical access facility as we are; if surgery need arise, pt would benefit from transferring to tertiary care for her comorbidity; will follow pt with you; see [id number]
[2020-04-20] MEDS: Insulin Aspart 100 Units/ML 3 ML Pen SUBCUT SCH (18:07)
[2020-04-20] MEDS: Morphine 2 MG/ML SYRINGE IVPUSH PRN (20:18)
--- NOTE | 2020-04-20 22:06 | CONS ---
DATE OF CONSULTATION: 04/20/2020 DATE OF : 1935 PRIMARY CARE PHYSICIAN: Judson Fulton M.D. REASON FOR CONSULTATION: Consult was called. The patient was seen shortly after. Consulting question is diverticulitis. HISTORY OF PRESENT ILLNESS: The patient is an 84-year-old lady who complained over 12-hour history of acute onset of left lower quadrant pain. Pain intensified, and the patient remarked as 10/10. Sought help in the emergency room and got admitted to Hospitalist Service. Surgery was consulted to help in management. Over admission workup, the patient had CAT scan that shows a little amount of extraluminal air and with collection, concern about microperforated diverticulitis. The patient remarked similar episode about 3 to 4 years ago and was admitted, treated conservatively, and discharged. The patient had colonoscopy done [address] Garzon and was noted for nothing. No polyp, no diverticulosis. PAST SURGICAL HISTORY: Laparoscopic cholecystectomy and complete colonoscopy in 2017. PAST MEDICAL HISTORY: The patient has diabetes, hypertension. Denied [place] or CVA. ALLERGIES: Please refer to nursing note for details. MEDICATIONS: Please refer to nursing note for details. PHYSICAL EXAMINATION: GENERAL: A very pleasant lady, smiled to the doctor, in no acute distress. HEENT: Normocephalic and atraumatic. Sclerae anicteric. LUNGS: Clear to auscultation. HEART: Regular rate and rhythm. ABDOMEN: Soft, nondistended. No pulsating tender midline abdominal structure. Exquisite tenderness on the right lower quadrant. No rebound tenderness. Very interesting, if distracted with conversation, she does not report any tenderness upon palpation. FAMILY HISTORY: Noncontributory. LABORATORY DATA: Upon consultation, white count 12.5, H and H of 12 and 36, and platelets are 252. BUN is 25 and creatinine is 1.3. A1c is 7.1. UA had protein and occult blood. COVID-19 is negative. CAT scan has alluded to diverticulitis with microperforation and a small collection, measuring about 1.7 cm. It is not even clear from the sigmoid diverticulitis or from small bowel diverticulitis. IMPRESSION: Diverticulitis with microperforation and a small collection, apparently 1.7 cm, very difficult to have CT-guided drainage. Preferably, we would have CT-guided drainage to take care it and treat with antibiotic treatment, but in this case it is too small to collect for CT-guided drainage, and we will agree with n.p.o., absolutely n.p.o., PPI, and antibiotic as you are doing. At least 3-week antibiotic, p.o. and IV, plus when pain is manageable, we will start oral feeding, and when tolerated oral feeding, we would send home. The patient would benefit to have a followup colonoscopy at least 3 months or more from the incidence. Considering the fact that the patient is 84 years old, we will assess the situation 2 to 3 months from now to determine whether the patient would benefit from repeat colonoscopy. For the time being, again IV antibiotic, PPI, and n.p.o. Okay to have some ice chips and follow with serial abdominal exams. We will follow the patient with you. Thanks for the consult and care of this pleasant lady. As always, thank you for the kind referral. MOOKIE / TEODORA /[id number] YANN
[2020-04-21] MEDS: Insulin Aspart 100 Units/ML 3 ML Pen SUBCUT SCH ×4 (00:41→17:57)
[2020-04-21] MEDS: Piperacillin/Tazobactam 2.25 GM in Sodium Chloride 0.9% 50 ML IV SCH ×4 (00:44→19:29)
[2020-04-21] MEDS: Heparin Sodium 5,000 Units/ML Vial SUBCUT SCH ×2 (00:46→12:17)
[2020-04-21] MEDS: Sodium Chloride 0.9% 1,000 ML IV SCH (03:28)
[2020-04-21 05:54] LABS: CARBON DIOXIDE,CO2 20.7 mmol/L (21.0-32.0); POTASSIUM,K 4.1 mmol/L (3.5-5.1)
--- NOTE | 2020-04-21 07:57 | PCM.PN ---
- General Info Date of Service: 04/21/20 Admission Dx/Problem (Free Text): Admission Diagnosis/Problem Admission Diagnosis/Problem Diverticulitis Subjective Update: Feeling a little better this morning, no nausea. pain to abdomen has improved. No chest pain or SOB. reports mild headache. Asking for ice Functional Status: Reports: Pain Controlled, Ambulating, Urinating - Review of Systems General: Reports: No Symptoms. Denies: Fatigue, Malaise HEENT: Reports: Headaches Pulmonary: Reports: No Symptoms. Denies: Shortness of Breath Cardiovascular: Reports: No Symptoms. Denies: Chest Pain Gastrointestinal: Denies: Abdominal Pain, Nausea, Vomiting Genitourinary: Reports: No Symptoms. Denies: Dysuria, Frequency, Burning Musculoskeletal: Reports: No Symptoms Skin: Reports: No Symptoms Neurological: Reports: No Symptoms Psychiatric: Reports: No Symptoms - Patient Data Vitals - Most Recent: Last Vital Signs Temp 98.2 F 04/21/20 03:55 Pulse 63 04/21/20 03:55 Resp 16 04/21/20 03:55 BP 147/66 H 04/21/20 03:55 Pulse Ox 93 L 04/21/20 03:55 Weight - Most Recent: 58.967 kg I&O - Last 24 Hours: Intake & Output 04/20/20 04/21/20 04/21/20 22:59 06:59 14:59 Intake Total 777 Output Total 500 Balance 277 Lab Results Last 24 Hours: Laboratory Results - last 24 hr 04/20/20 04/20/20 04/20/20 Range/Units 07:42 17:35 23:50 WBC (4.0-11.0) K/uL RBC (4.30-5.90) M/uL Hgb (12.0-16.0) g/dL Hct (36.0-46.0) % MCV (80.0-98.0) fL MCH (27.0-32.0) pg MCHC (31.0-37.0) g/dL RDW Std Deviation (28.0-62.0) fl RDW Coeff of [place] (11.0-15.0) % Plt Count (150-400) K/uL MPV (7.40-12.00) fL Neut % (Auto) (48.0-80.0) % Lymph % (Auto) (16.0-40.0) % [place] % (Auto) (0.0-15.0) % Eos % (Auto) (0.0-7.0) % Baso % (Auto) (0.0-1.5) % Neut # (Auto) (1.4-5.7) K/uL Lymph # (Auto) (0.6-2.4) K/uL [place] # (Auto) (0.0-0.8) K/uL Eos # (Auto) (0.0-0.7) K/uL Baso # (Auto) (0.0-0.1) K/uL Nucleated RBC % /100WBC Nucleated RBCs # K/uL Sodium (136-145) mmol/L Potassium (3.5-5.1) mmol/L Chloride (98-107) mmol/L Carbon Dioxide (21.0-32.0) mmol/L BUN (7.0-18.0) mg/dL Creatinine (0.6-1.0) mg/dL Est Cr Clr Drug Dosing mL/min Estimated GFR (MDRD) ml/min Glucose (74-106) mg/dL POC Glucose 127 H 103 (60-110) mg/dL Calcium (8.5-10.1) mg/dL Total Bilirubin (0.2-1.0) mg/dL AST (15-37) IU/L ALT (14-63) IU/L Alkaline Phosphatase (46-116) U/L Total Protein (6.4-8.2) g/dL Albumin (3.4-5.0) g/dL Globulin (2.6-4.0) g/dL Albumin/Globulin Ratio (0.9-1.6) SARS-CoV-2 RNA (KALLI) NEGATIVE (NEGATIVE) 04/21/20 04/21/20 04/21/20 Range/Units 04:50 04:50 06:04 WBC 11.45 H (4.0-11.0) K/uL RBC 3.20 L (4.30-5.90) M/uL Hgb 9.3 L (12.0-16.0) g/dL Hct 28.3 L (36.0-46.0) % MCV 88.4 (80.0-98.0) fL MCH 29.1 (27.0-32.0) pg MCHC 32.9 (31.0-37.0) g/dL RDW Std Deviation 47.0 (28.0-62.0) fl RDW Coeff of [place] 14 (11.0-15.0) % Plt Count 213 (150-400) K/uL MPV 9.60 (7.40-12.00) fL Neut % (Auto) 73.0 (48.0-80.0) % Lymph % (Auto) 19.3 (16.0-40.0) % [place] % (Auto) 7.0 (0.0-15.0) % Eos % (Auto) 0.6 (0.0-7.0) % Baso % (Auto) 0.1 (0.0-1.5) % Neut # (Auto) 8.4 H (1.4-5.7) K/uL Lymph # (Auto) 2.2 (0.6-2.4) K/uL [place] # (Auto) 0.8 (0.0-0.8) K/uL Eos # (Auto) 0.1 (0.0-0.7) K/uL Baso # (Auto) 0.0 (0.0-0.1) K/uL Nucleated RBC % 0.0 /100WBC Nucleated RBCs # 0 K/uL Sodium 142 (136-145) mmol/L Potassium 4.1 (3.5-5.1) mmol/L Chloride 112 H (98-107) mmol/L Carbon Dioxide 20.7 L (21.0-32.0) mmol/L BUN 19 H (7.0-18.0) mg/dL Creatinine 1.3 H (0.6-1.0) mg/dL Est Cr Clr Drug Dosing 28.81 mL/min Estimated GFR (MDRD) 39.2 ml/min Glucose 105 (74-106) mg/dL POC Glucose 102 (60-110) mg/dL Calcium 7.1 L (8.5-10.1) mg/dL Total Bilirubin 1.0 (0.2-1.0) mg/dL AST 13 L (15-37) IU/L ALT 17 (14-63) IU/L Alkaline Phosphatase 56 (46-116) U/L Total Protein 6.3 L (6.4-8.2) g/dL Albumin 2.4 L (3.4-5.0) g/dL Globulin 3.9 (2.6-4.0) g/dL Albumin/Globulin Ratio 0.6 L (0.9-1.6) SARS-CoV-2 RNA (KALLI) (NEGATIVE) Med Orders - Current: Current Medications Heparin Sodium (Porcine) (Heparin Sodium) 5,000 units SUBCUT Q12H [facility] Last Admin: 04/21/20 00:46 Dose: 5,000 units Documented by: Piperacillin Sod/Tazobactam (Sod 2.25 gm/ Sodium Chloride) 50 mls @ 100 mls/hr IV Q6H [facility] Last Admin: 04/21/20 07:41 Dose: 100 mls/hr Documented by: Pantoprazole Sodium 40 mg/ (Sodium Chloride) 10 mls @ 300 mls/hr IV Q24H [facility] Last Admin: 04/20/20 12:39 Dose: 300 mls/hr Documented by: Lactated Ringer's (Ringers, Lactated) 1,000 mls @ 100 mls/hr IV Q10H [facility] Insulin Aspart (Novolog) 0 unit SUBCUT Q6H [facility]; Protocol Last Admin: 04/21/20 07:21 Dose: Not Given Documented by: Labetalol HCl (Normodyne) 10 mg IVPUSH Q4H PRN PRN Reason: SBP>180 Last Admin: 04/20/20 12:35 Dose: 10 mg Documented by: Morphine Sulfate (Morphine) 2 mg IVPUSH Q4H PRN PRN Reason: Pain (severe 7-10) Last Admin: 04/20/20 20:18 Dose: 2 mg Documented by: Ondansetron HCl (Zofran) 4 mg IVPUSH Q4H PRN PRN Reason: Nausea Sodium Chloride (Saline Flush) 10 ml FLUSH ASDIRECTED PRN PRN Reason: Keep Vein Open Last Admin: 04/20/20 07:40 Dose: 10 ml Documented by: Sodium Chloride (Saline Flush) 2.5 ml FLUSH ASDIRECTED PRN PRN Reason: Keep Vein Open Last Admin: 04/20/20 07:40 Dose: 2.5 ml Documented by: Discontinued Medications Amlodipine Besylate (Norvasc) 10 mg PO ONETIME ONE Stop: 04/20/20 06:39 Last Admin: 04/20/20 06:49 Dose: 10 mg Documented by: Sodium Chloride (Normal Saline) 1,000 mls @ 999 mls/hr IV .Bolus ONE Stop: 04/20/20 06:59 Last Admin: 04/20/20 06:10 Dose: 999 mls/hr Documented by: Piperacillin Sod/Tazobactam (Sod 3.375 gm/ Sodium Chloride) 50 mls @ 100 mls/hr IV ONETIME ONE Stop: 04/20/20 07:37 Last Admin: 04/20/20 07:39 Dose: 100 mls/hr Documented by: Sodium Chloride (Normal Saline) 1,000 mls @ 125 mls/hr IV Q8H [facility]A Last Admin: 04/21/20 03:28 Dose: 125 mls/hr Documented by: Lisinopril (Prinivil) 20 mg PO ONETIME ONE Stop: 04/20/20 06:39 Last Admin: 04/20/20 06:43 Dose: 20 mg Documented by: Morphine Sulfate (Morphine) 4 mg IVPUSH ONETIME ONE Stop: 04/20/20 06:00 Last Admin: 04/20/20 06:10 Dose: 4 mg Documented by: Ondansetron HCl (Zofran) 4 mg IVPUSH ONETIME ONE Stop: 04/20/20 06:00 Last Admin: 04/20/20 06:10 Dose: 4 mg Documented by: - Exam General: Alert, Oriented, Cooperative, No Acute Distress Lungs: Clear to Auscultation, Normal Respiratory Effort Cardiovascular: Regular Rate, Regular Rhythm GI/Abdominal Exam: Normal Bowel Sounds, Soft, Tender (RLL remains very tender to palpation) Extremities: Normal Inspection, Normal Range of Motion, Non-Tender, No Pedal Edema Neurological: No New Focal Deficit Psy/Mental Status: Alert, Normal Affect, Normal Mood Sepsis Event Note - Evaluation Sepsis Screening Result: No Definite Risk - Focused Exam Vital Signs: Vital Signs Temp Pulse Resp BP Pulse Ox 04/21/20 03:55 98.2 F 63 16 147/66 H 93 L 04/21/20 00:00 99.1 F 60 16 120/60 94 L 04/20/20 20:00 98.2 F 82 18 140/53 L 98 - Problem List & Annotations (1) Diverticulitis of intestine with perforation SNOMED Code(s): 645406250, 977193248 Code(s): K57.80 - DVTRCLI OF INTEST, PART UNSP, W PERF AND ABSCESS W/O BLEED Status: Acute Current Visit: Yes Qualifiers: Diverticulitis site: small intestine Diverticulitis bleeding: without bleeding Qualified Code(s): K57.00 - Diverticulitis of small intestine with perforation and abscess without bleeding (2) HTN (hypertension) SNOMED Code(s): 72404415 Code(s): I10 - ESSENTIAL (PRIMARY) HYPERTENSION Status: Chronic Current Visit: Yes Qualifiers: Hypertension type: essential hypertension Qualified Code(s): I10 - Essential (primary) hypertension (3) DM type 2 (diabetes mellitus, type 2) SNOMED Code(s): 10882137 Code(s): E11.9 - TYPE 2 DIABETES MELLITUS WITHOUT COMPLICATIONS Status: Chronic Current Visit: Yes Qualifiers: Diabetes mellitus longterm insulin use: without longterm use Diabetes mellitus complication status: without complication Qualified Code(s): E11.9 - Type 2 diabetes mellitus without complications - Problem List Review Problem List Initiated/Reviewed/Updated: Yes - My Orders Last 24 Hours: My Active Orders 04/20/20 07:54 Oxygen Therapy [RC] PRN Up With Assistance [RC] ASDIRECTED VTE/DVT Education [RC] PER UNIT ROUTINE Vital Signs [RC] Q4H Morphine 2 mg IVPUSH Q4H PRN Resuscitation Status Routine 04/20/20 07:55 Antiembolic Devices [RC] PER UNIT ROUTINE Intake and Output [RC] QSHIFT Ondansetron [Zofran] 4 mg IVPUSH Q4H PRN Sequential Compression Device [OM.PC] Per Unit Routine 04/20/20 09:46 Patient Status [ADT] Routine 04/20/20 11:58 Notify Provider Consults [RC] ASDIRECTED Consult to Physician [CONS] Urgent 04/20/20 12:05 C DIFFICILE AG/TOXIN W/REFLEX [RM] Urgent 04/20/20 12:15 Pantoprazole [ProTONIX IV] 40 mg Sodium Chloride 0.9% [Normal Saline] 10 ml IV Q24H 04/20/20 12:28 STOOL CULTURE/SHIGA TOXIN [MREF] Urgent 04/20/20 12:35 Blood Glucose Check, Bedside [RC] Q6H 04/20/20 12:45 Heparin Sodium 5,000 units SUBCUT Q12H 04/20/20 13:30 Piperacillin/Tazobactam [Zosyn] 2.25 gm Sodium Chloride 0.9% [Normal Saline] 50 ml IV Q6H 04/20/20 14:28 [employer] 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 Acute small bowel diverticulitis with microperforation - Mild improvement today - NPO sips wth meds is ok. No advancement of diet until pain free per Dr Maldonado recommendations. - LR 100 mls/hr - Zosyn 3.725 mg IV Q6hr - Stool Studies - Consult Dr Maldonado, General surgery 2. HTN: - Labetolol PRN ordered - Improved today, will continue home medications 3. DM Type 2 - BS check every 6 hours - Novolog SSI VTE prophylaxis: Heparin Dispo: 2-3 days,
[2020-04-21] MEDS: Lactated Ringers 1,000 ML IV SCH ×2 (08:32→19:28)
[2020-04-21] MEDS: amLODIPine 5 MG Tab PO SCH (09:36)
[2020-04-21] MEDS: Lisinopril 10 MG Tab PO SCH (09:36)
[2020-04-21] MEDS: Acetaminophen 325 MG Tab PO PRN (09:37)
--- NOTE | 2020-04-21 11:31 | PCM.SURGPN ---
- General Info Date of Service: 04/21/20 - Review of Systems General: Reports: No Symptoms Gastrointestinal: Reports: No Symptoms (still hurting, no as bad; wbc down from 12 to 11, temp 100) - Patient Data Vitals - Most Recent: Last Vital Signs Temp 98.9 F 04/21/20 08:00 Pulse 66 04/21/20 08:00 Resp 18 04/21/20 08:00 BP 158/47 H 04/21/20 09:36 Pulse Ox 95 04/21/20 08:00 Weight - Most Recent: 130 lb I&O - Last 24 Hours: Intake & Output 04/20/20 04/21/20 04/21/20 22:59 06:59 14:59 Intake Total 777 0 Output Total 500 860 Balance 277 -860 Lab Results Last 24 Hrs: Laboratory Results - last 24 hr 04/20/20 04/20/20 04/21/20 Range/Units 17:35 23:50 04:50 WBC 11.45 H (4.0-11.0) K/uL RBC 3.20 L (4.30-5.90) M/uL Hgb 9.3 L (12.0-16.0) g/dL Hct 28.3 L (36.0-46.0) % MCV 88.4 (80.0-98.0) fL MCH 29.1 (27.0-32.0) pg MCHC 32.9 (31.0-37.0) g/dL RDW Std Deviation 47.0 (28.0-62.0) fl RDW Coeff of Candido 14 (11.0-15.0) % Plt Count 213 (150-400) K/uL MPV 9.60 (7.40-12.00) fL Neut % (Auto) 73.0 (48.0-80.0) % Lymph % (Auto) 19.3 (16.0-40.0) % [place] % (Auto) 7.0 (0.0-15.0) % Eos % (Auto) 0.6 (0.0-7.0) % Baso % (Auto) 0.1 (0.0-1.5) % Neut # (Auto) 8.4 H (1.4-5.7) K/uL Lymph # (Auto) 2.2 (0.6-2.4) K/uL [place] # (Auto) 0.8 (0.0-0.8) K/uL Eos # (Auto) 0.1 (0.0-0.7) K/uL Baso # (Auto) 0.0 (0.0-0.1) K/uL Nucleated RBC % 0.0 /100WBC Nucleated RBCs # 0 K/uL Sodium (136-145) mmol/L Potassium (3.5-5.1) mmol/L Chloride (98-107) mmol/L Carbon Dioxide (21.0-32.0) mmol/L BUN (7.0-18.0) mg/dL Creatinine (0.6-1.0) mg/dL Est Cr Clr Drug Dosing mL/min Estimated GFR (MDRD) ml/min Glucose (74-106) mg/dL POC Glucose 127 H 103 (60-110) mg/dL Calcium (8.5-10.1) mg/dL Total Bilirubin (0.2-1.0) mg/dL AST (15-37) IU/L ALT (14-63) IU/L Alkaline Phosphatase (46-116) U/L Total Protein (6.4-8.2) g/dL Albumin (3.4-5.0) g/dL Globulin (2.6-4.0) g/dL Albumin/Globulin Ratio (0.9-1.6) 04/21/20 04/21/20 Range/Units 04:50 06:04 WBC (4.0-11.0) K/uL RBC (4.30-5.90) M/uL Hgb (12.0-16.0) g/dL Hct (36.0-46.0) % MCV (80.0-98.0) fL MCH (27.0-32.0) pg MCHC (31.0-37.0) g/dL RDW Std Deviation (28.0-62.0) fl RDW Coeff of Candido (11.0-15.0) % Plt Count (150-400) K/uL MPV (7.40-12.00) fL Neut % (Auto) (48.0-80.0) % Lymph % (Auto) (16.0-40.0) % [place] % (Auto) (0.0-15.0) % Eos % (Auto) (0.0-7.0) % Baso % (Auto) (0.0-1.5) % Neut # (Auto) (1.4-5.7) K/uL Lymph # (Auto) (0.6-2.4) K/uL [place] # (Auto) (0.0-0.8) K/uL Eos # (Auto) (0.0-0.7) K/uL Baso # (Auto) (0.0-0.1) K/uL Nucleated RBC % /100WBC Nucleated RBCs # K/uL Sodium 142 (136-145) mmol/L Potassium 4.1 (3.5-5.1) mmol/L Chloride 112 H (98-107) mmol/L Carbon Dioxide 20.7 L (21.0-32.0) mmol/L BUN 19 H (7.0-18.0) mg/dL Creatinine 1.3 H (0.6-1.0) mg/dL Est Cr Clr Drug Dosing 28.81 mL/min Estimated GFR (MDRD) 39.2 ml/min Glucose 105 (74-106) mg/dL POC Glucose 102 (60-110) mg/dL Calcium 7.1 L (8.5-10.1) mg/dL Total Bilirubin 1.0 (0.2-1.0) mg/dL AST 13 L (15-37) IU/L ALT 17 (14-63) IU/L Alkaline Phosphatase 56 (46-116) U/L Total Protein 6.3 L (6.4-8.2) g/dL Albumin 2.4 L (3.4-5.0) g/dL Globulin 3.9 (2.6-4.0) g/dL Albumin/Globulin Ratio 0.6 L (0.9-1.6) Med Orders - Current: Current Medications Acetaminophen (Tylenol) 650 mg PO Q4H PRN PRN Reason: Pain Last Admin: 04/21/20 09:37 Dose: 650 mg Documented by: Amlodipine Besylate (Norvasc) 10 mg PO DAILY [facility] Last Admin: 04/21/20 09:36 Dose: 10 mg Documented by: Heparin Sodium (Porcine) (Heparin Sodium) 5,000 units SUBCUT Q12H [facility] Last Admin: 04/21/20 00:46 Dose: 5,000 units Documented by: Piperacillin Sod/Tazobactam (Sod 2.25 gm/ Sodium Chloride) 50 mls @ 100 mls/hr IV Q6H [facility] Last Admin: 04/21/20 07:41 Dose: 100 mls/hr Documented by: Pantoprazole Sodium 40 mg/ (Sodium Chloride) 10 mls @ 300 mls/hr IV Q24H [facility] Last Admin: 04/20/20 12:39 Dose: 300 mls/hr Documented by: Lactated Ringer's (Ringers, Lactated) 1,000 mls @ 100 mls/hr IV Q10H [facility] Last Admin: 04/21/20 08:32 Dose: 100 mls/hr Documented by: Insulin Aspart (Novolog) 0 unit SUBCUT Q6H [facility]; Protocol Last Admin: 04/21/20 07:21 Dose: Not Given Documented by: Labetalol HCl (Normodyne) 10 mg IVPUSH Q4H PRN PRN Reason: SBP>180 Last Admin: 04/20/20 12:35 Dose: 10 mg Documented by: Lisinopril (Prinivil) 20 mg PO DAILY [facility] Last Admin: 04/21/20 09:36 Dose: 20 mg Documented by: Morphine Sulfate (Morphine) 2 mg IVPUSH Q4H PRN PRN Reason: Pain (severe 7-10) Last Admin: 04/20/20 20:18 Dose: 2 mg Documented by: Ondansetron HCl (Zofran) 4 mg IVPUSH Q4H PRN PRN Reason: Nausea Sodium Chloride (Saline Flush) 10 ml FLUSH ASDIRECTED PRN PRN Reason: Keep Vein Open Last Admin: 04/20/20 07:40 Dose: 10 ml Documented by: Sodium Chloride (Saline Flush) 2.5 ml FLUSH ASDIRECTED PRN PRN Reason: Keep Vein Open Last Admin: 04/20/20 07:40 Dose: 2.5 ml Documented by: Discontinued Medications Amlodipine Besylate (Norvasc) 10 mg PO ONETIME ONE Stop: 04/20/20 06:39 Last Admin: 04/20/20 06:49 Dose: 10 mg Documented by: Sodium Chloride (Normal Saline) 1,000 mls @ 999 mls/hr IV .Bolus ONE Stop: 04/20/20 06:59 Last Admin: 04/20/20 06:10 Dose: 999 mls/hr Documented by: Piperacillin Sod/Tazobactam (Sod 3.375 gm/ Sodium Chloride) 50 mls @ 100 mls/hr IV ONETIME ONE Stop: 04/20/20 07:37 Last Admin: 04/20/20 07:39 Dose: 100 mls/hr Documented by: Sodium Chloride (Normal Saline) 1,000 mls @ 125 mls/hr IV Q8H [facility]A Last Admin: 04/21/20 03:28 Dose: 125 mls/hr Documented by: Lisinopril (Prinivil) 20 mg PO ONETIME ONE Stop: 04/20/20 06:39 Last Admin: 04/20/20 06:43 Dose: 20 mg Documented by: Morphine Sulfate (Morphine) 4 mg IVPUSH ONETIME ONE Stop: 04/20/20 06:00 Last Admin: 04/20/20 06:10 Dose: 4 mg Documented by: Ondansetron HCl (Zofran) 4 mg IVPUSH ONETIME ONE Stop: 04/20/20 06:00 Last Admin: 04/20/20 06:10 Dose: 4 mg Documented by: - Exam GI/Abdominal Exam: Soft (no distention; tenderness on R) Sepsis Event Note - Evaluation Sepsis Screening Result: No Definite Risk - Focused Exam Vital Signs: Vital Signs Temp Pulse Resp BP BP Pulse Ox Pulse Ox 04/21/20 09:36 158/47 H 04/21/20 08:00 98.9 F 66 18 158/47 H 95 04/21/20 07:54 97 04/21/20 03:55 98.2 F 63 16 147/66 H 93 L 04/21/20 00:00 99.1 F 60 16 120/60 94 L - Problem List Review Problem List Initiated/Reviewed/Updated: Yes - My Orders Last 24 Hours: Active Orders 24 hr Category Date Time Status Blood Glucose Check, Bedside [RC] Q6H Care 04/20/20 12:35 Active Notify Provider Consults [RC] ASDIRECTED Care 04/20/20 11:58 Active Consult to Physician [CONS] Urgent Cons 04/20/20 11:58 Active C DIFFICILE AG/TOXIN W/REFLEX [RM] Urgent Lab 04/20/20 12:05 Ordered CBC WITH AUTO DIFF [HEME] AM Lab 04/22/20 05:11 Ordered CBC WITH AUTO DIFF [HEME] AM Lab 04/23/20 05:11 Ordered COMPREHENSIVE METABOLIC PN,CMP [CHEM] AM Lab 04/22/20 05:11 Ordered COMPREHENSIVE METABOLIC PN,CMP [CHEM] AM Lab 04/23/20 05:11 Ordered STOOL CULTURE/SHIGA TOXIN [MREF] Urgent Lab 04/20/20 12:28 Ordered Acetaminophen [TylenoL] Med 04/21/20 09:24 Active 650 mg PO Q4H PRN Heparin Sodium Med 04/20/20 12:45 Active 5,000 units SUBCUT Q12H Insulin Aspart [NovoLOG] Med 04/20/20 18:00 Active See Protocol SUBCUT Q6H Lactated Ringers [Ringers, Lactated] 1,000 ml Med 04/21/20 08:00 Active IV Q10H Pantoprazole [ProTONIX IV] 40 mg Med 04/20/20 12:15 Active Sodium Chloride 0.9% [Normal Saline] 10 ml IV Q24H Piperacillin/Tazobactam [Zosyn] 2.25 gm Med 04/20/20 13:30 Active Sodium Chloride 0.9% [Normal Saline] 50 ml IV Q6H amLODIPine [Norvasc] Med 04/21/20 09:27 Active 10 mg PO DAILY lisinopriL [Prinivil] Med 04/21/20 09:30 Active 20 mg PO DAILY Medication Orders Acetaminophen (Tylenol) 650 mg PO Q4H PRN PRN Reason: Pain Last Admin: 04/21/20 09:37 Dose: 650 mg Documented by: ALHAJI Amlodipine Besylate (Norvasc) 10 mg PO DAILY [facility] Last Admin: 04/21/20 09:36 Dose: 10 mg Documented by: ALHAJI Heparin Sodium (Porcine) (Heparin Sodium) 5,000 units SUBCUT Q12H [facility] Last Admin: 04/21/20 00:46 Dose: 5,000 units Documented by: Admin: 04/20/20 13:20 Dose: 5,000 units Documented by: ALHAJI Piperacillin Sod/Tazobactam (Sod 2.25 gm/ Sodium Chloride) 50 mls @ 100 mls/hr IV Q6H [facility] Last Admin: 04/21/20 07:41 Dose: 100 mls/hr Documented by: Infusion: 04/21/20 01:14 Dose: 100 mls/hr Documented by: Admin: 04/21/20 00:44 Dose: 100 mls/hr Documented by: Infusion: 04/20/20 19:41 Dose: 100 mls/hr Documented by: Admin: 04/20/20 19:11 Dose: 100 mls/hr Documented by: Infusion: 04/20/20 13:14 Dose: 100 mls/hr Documented by: Admin: 04/20/20 12:44 Dose: 100 mls/hr Documented by: CINDY Pantoprazole Sodium 40 mg/ (Sodium Chloride) 10 mls @ 300 mls/hr IV Q24H [facility]A Last Admin: 04/20/20 12:39 Dose: 300 mls/hr Documented by: CINDY Lactated Ringer's (Ringers, Lactated) 1,000 mls @ 100 mls/hr IV Q10H [facility] Last Admin: 04/21/20 08:32 Dose: 100 mls/hr Documented by: ALHAJI Insulin Aspart (Novolog) 0 unit SUBCUT Q6H [facility]; Protocol Last Admin: 04/21/20 07:21 Dose: Not Given Documented by: Admin: 04/21/20 00:41 Dose: Not Given Documented by: Admin: 04/20/20 18:07 Dose: Not Given Documented by: ALHAJI Labetalol HCl (Normodyne) 10 mg IVPUSH Q4H PRN PRN Reason: SBP>180 Last Admin: 04/20/20 12:35 Dose: 10 mg Documented by: CINDY Lisinopril (Prinivil) 20 mg PO DAILY [facility] Last Admin: 04/21/20 09:36 Dose: 20 mg Documented by: ALHAJI Morphine Sulfate (Morphine) 2 mg IVPUSH Q4H PRN PRN Reason: Pain (severe 7-10) Last Admin: 04/20/20 20:18 Dose: 2 mg Documented by: SANTINO Ondansetron HCl (Zofran) 4 mg IVPUSH Q4H PRN PRN Reason: Nausea Sodium Chloride (Saline Flush) 10 ml FLUSH ASDIRECTED PRN PRN Reason: Keep Vein Open Last Admin: 04/20/20 07:40 Dose: 10 ml Documented by: MORGAN Sodium Chloride (Saline Flush) 2.5 ml FLUSH ASDIRECTED PRN PRN Reason: Keep Vein Open Last Admin: 04/20/20 07:40 Dose: 2.5 ml Documented by: MORGAN - Assessment Assessment (Free Text/Narrative):: diverticulitis flareup w microperf; responded to iv abx; continue npo/iv abx/PPI - Plan Plan (Free Text/Narrative):: diverticulitis flareup w microperf; responded to iv abx; continue npo/iv abx/PPI
[2020-04-21] MEDS: Pantoprazole 40 MG in Sodium Chloride 0.9% 10 ML IV SCH (12:15)
[2020-04-21] MEDS: Morphine 2 MG/ML SYRINGE IVPUSH PRN (20:20)
[2020-04-21] MEDS: Labetalol 100 MG/20 ML MDV IVPUSH PRN (23:50)
[2020-04-22] MEDS: Insulin Aspart 100 Units/ML 3 ML Pen SUBCUT SCH ×4 (00:17→17:51)
[2020-04-22] MEDS: Heparin Sodium 5,000 Units/ML Vial SUBCUT SCH ×2 (00:19→12:30)
[2020-04-22] MEDS: Piperacillin/Tazobactam 2.25 GM in Sodium Chloride 0.9% 50 ML IV SCH ×4 (00:30→19:31)
[2020-04-22] MEDS: Lactated Ringers 1,000 ML IV SCH ×2 (06:01→16:58)
[2020-04-22 06:13] LABS: CARBON DIOXIDE,CO2 20.1 mmol/L (21.0-32.0)
[2020-04-22] MEDS: amLODIPine 5 MG Tab PO SCH (08:12)
[2020-04-22] MEDS: Lisinopril 10 MG Tab PO SCH (08:12)
--- NOTE | 2020-04-22 09:56 | PCM.PN ---
- General Info Date of Service: 04/22/20 Admission Dx/Problem (Free Text): Admission Diagnosis/Problem Admission Diagnosis/Problem Diverticulitis Subjective Update: Feeling a little better this morning, no nausea. pain to abdomen has improved. No chest pain or SOB. reports mild headache. little hungry - Review of Systems General: Denies: Fever, Weakness, Fatigue Pulmonary: Denies: Shortness of Breath, Pleuritic Chest Pain Cardiovascular: Denies: Chest Pain, Palpitations Gastrointestinal: Denies: Abdominal Pain, Constipation, Decreased Appetite, Di arrhea, Difficulty Swallowing Genitourinary: Denies: Dysuria, Frequency Musculoskeletal: Denies: Neck Pain, Shoulder Pain Skin: Denies: Cyanosis, Jaundice, Mottled - Patient Data Vitals - Most Recent: Last Vital Signs Temp 36.2 C 04/22/20 04:00 Pulse 70 04/22/20 04:00 Resp 16 04/22/20 04:00 BP 162/89 H 04/22/20 08:12 Pulse Ox 93 L 04/22/20 04:00 Weight - Most Recent: 58.967 kg I&O - Last 24 Hours: Intake & Output 04/21/20 04/22/20 04/22/20 22:59 06:59 14:59 Intake Total 838 69 5592 Output Total 1000 1200 Balance -214 -1140 1200 Lab Results Last 24 Hours: Laboratory Results - last 24 hr 04/21/20 04/21/20 04/21/20 Range/Units 11:38 17:03 23:46 WBC (4.0-11.0) K/uL RBC (4.30-5.90) M/uL Hgb (12.0-16.0) g/dL Hct (36.0-46.0) % MCV (80.0-98.0) fL MCH (27.0-32.0) pg MCHC (31.0-37.0) g/dL RDW Std Deviation (28.0-62.0) fl RDW Coeff of Candido (11.0-15.0) % Plt Count (150-400) K/uL MPV (7.40-12.00) fL Neut % (Auto) (48.0-80.0) % Lymph % (Auto) (16.0-40.0) % [place] % (Auto) (0.0-15.0) % Eos % (Auto) (0.0-7.0) % Baso % (Auto) (0.0-1.5) % Neut # (Auto) (1.4-5.7) K/uL Lymph # (Auto) (0.6-2.4) K/uL [place] # (Auto) (0.0-0.8) K/uL Eos # (Auto) (0.0-0.7) K/uL Baso # (Auto) (0.0-0.1) K/uL Nucleated RBC % /100WBC Nucleated RBCs # K/uL Sodium (136-145) mmol/L Potassium (3.5-5.1) mmol/L Chloride (98-107) mmol/L Carbon Dioxide (21.0-32.0) mmol/L BUN (7.0-18.0) mg/dL Creatinine (0.6-1.0) mg/dL Est Cr Clr Drug Dosing mL/min Estimated GFR (MDRD) ml/min Glucose (74-106) mg/dL POC Glucose 94 81 72 (60-110) mg/dL Calcium (8.5-10.1) mg/dL Total Bilirubin (0.2-1.0) mg/dL AST (15-37) IU/L ALT (14-63) IU/L Alkaline Phosphatase (46-116) U/L Total Protein (6.4-8.2) g/dL Albumin (3.4-5.0) g/dL Globulin (2.6-4.0) g/dL Albumin/Globulin Ratio (0.9-1.6) 04/22/20 04/22/20 04/22/20 Range/Units 05:10 05:10 05:56 WBC 9.08 (4.0-11.0) K/uL RBC 3.22 L (4.30-5.90) M/uL Hgb 9.4 L (12.0-16.0) g/dL Hct 28.3 L (36.0-46.0) % MCV 87.9 (80.0-98.0) fL MCH 29.2 (27.0-32.0) pg MCHC 33.2 (31.0-37.0) g/dL RDW Std Deviation 45.6 (28.0-62.0) fl RDW Coeff of Candido 14 (11.0-15.0) % Plt Count 223 (150-400) K/uL MPV 9.80 (7.40-12.00) fL Neut % (Auto) 71.6 (48.0-80.0) % Lymph % (Auto) 19.7 (16.0-40.0) % [place] % (Auto) 6.7 (0.0-15.0) % Eos % (Auto) 1.8 (0.0-7.0) % Baso % (Auto) 0.2 (0.0-1.5) % Neut # (Auto) 6.5 H (1.4-5.7) K/uL Lymph # (Auto) 1.8 (0.6-2.4) K/uL [place] # (Auto) 0.6 (0.0-0.8) K/uL Eos # (Auto) 0.2 (0.0-0.7) K/uL Baso # (Auto) 0.0 (0.0-0.1) K/uL Nucleated RBC % 0.0 /100WBC Nucleated RBCs # 0 K/uL Sodium 140 (136-145) mmol/L Potassium 4.0 (3.5-5.1) mmol/L Chloride 109 H (98-107) mmol/L Carbon Dioxide 20.1 L (21.0-32.0) mmol/L BUN 15 (7.0-18.0) mg/dL Creatinine 1.2 H (0.6-1.0) mg/dL Est Cr Clr Drug Dosing 31.21 mL/min Estimated GFR (MDRD) 43.0 ml/min Glucose 84 (74-106) mg/dL POC Glucose 86 (60-110) mg/dL Calcium 7.8 L (8.5-10.1) mg/dL Total Bilirubin 1.0 (0.2-1.0) mg/dL AST 13 L (15-37) IU/L ALT 14 (14-63) IU/L Alkaline Phosphatase 59 (46-116) U/L Total Protein 6.6 (6.4-8.2) g/dL Albumin 2.4 L (3.4-5.0) g/dL Globulin 4.2 H (2.6-4.0) g/dL Albumin/Globulin Ratio 0.6 L (0.9-1.6) Med Orders - Current: Current Medications Acetaminophen (Tylenol) 650 mg PO Q4H PRN PRN Reason: Pain Last Admin: 04/21/20 09:37 Dose: 650 mg Documented by: Amlodipine Besylate (Norvasc) 10 mg PO DAILY [facility] Last Admin: 04/22/20 08:12 Dose: 10 mg Documented by: Heparin Sodium (Porcine) (Heparin Sodium) 5,000 units SUBCUT Q12H [facility] Last Admin: 04/22/20 00:19 Dose: 5,000 units Documented by: Piperacillin Sod/Tazobactam (Sod 2.25 gm/ Sodium Chloride) 50 mls @ 100 mls/hr IV Q6H [facility] Last Admin: 04/22/20 07:39 Dose: 100 mls/hr Documented by: Pantoprazole Sodium 40 mg/ (Sodium Chloride) 10 mls @ 300 mls/hr IV Q24H [facility] Last Admin: 04/21/20 12:15 Dose: 300 mls/hr Documented by: Lactated Ringer's (Ringers, Lactated) 1,000 mls @ 100 mls/hr IV Q10H [facility] Last Admin: 04/22/20 06:01 Dose: 100 mls/hr Documented by: Insulin Aspart (Novolog) 0 unit SUBCUT Q6H [facility]; Protocol Last Admin: 04/22/20 06:12 Dose: Not Given Documented by: Labetalol HCl (Normodyne) 10 mg IVPUSH Q4H PRN PRN Reason: SBP>180 Last Admin: 04/21/20 23:50 Dose: 10 mg Documented by: Lisinopril (Prinivil) 20 mg PO DAILY [facility] Last Admin: 04/22/20 08:12 Dose: 20 mg Documented by: Morphine Sulfate (Morphine) 2 mg IVPUSH Q4H PRN PRN Reason: Pain (severe 7-10) Last Admin: 04/21/20 20:20 Dose: 2 mg Documented by: Ondansetron HCl (Zofran) 4 mg IVPUSH Q4H PRN PRN Reason: Nausea Sodium Chloride (Saline Flush) 10 ml FLUSH ASDIRECTED PRN PRN Reason: Keep Vein Open Last Admin: 04/20/20 07:40 Dose: 10 ml Documented by: Sodium Chloride (Saline Flush) 2.5 ml FLUSH ASDIRECTED PRN PRN Reason: Keep Vein Open Last Admin: 04/20/20 07:40 Dose: 2.5 ml Documented by: Discontinued Medications Amlodipine Besylate (Norvasc) 10 mg PO ONETIME ONE Stop: 04/20/20 06:39 Last Admin: 04/20/20 06:49 Dose: 10 mg Documented by: Sodium Chloride (Normal Saline) 1,000 mls @ 999 mls/hr IV .Bolus ONE Stop: 04/20/20 06:59 Last Admin: 04/20/20 06:10 Dose: 999 mls/hr Documented by: Piperacillin Sod/Tazobactam (Sod 3.375 gm/ Sodium Chloride) 50 mls @ 100 mls/hr IV ONETIME ONE Stop: 04/20/20 07:37 Last Admin: 04/20/20 07:39 Dose: 100 mls/hr Documented by: Sodium Chloride (Normal Saline) 1,000 mls @ 125 mls/hr IV Q8H [facility] Last Admin: 04/21/20 03:28 Dose: 125 mls/hr Documented by: Lisinopril (Prinivil) 20 mg PO ONETIME ONE Stop: 04/20/20 06:39 Last Admin: 04/20/20 06:43 Dose: 20 mg Documented by: Morphine Sulfate (Morphine) 4 mg IVPUSH ONETIME ONE Stop: 04/20/20 06:00 Last Admin: 04/20/20 06:10 Dose: 4 mg Documented by: Ondansetron HCl (Zofran) 4 mg IVPUSH ONETIME ONE Stop: 04/20/20 06:00 Last Admin: 04/20/20 06:10 Dose: 4 mg Documented by: - Exam General: Alert, Oriented Lungs: Clear to Auscultation, Normal Respiratory Effort Cardiovascular: Regular Rate, Regular Rhythm GI/Abdominal Exam: Normal Bowel Sounds, Soft, Tender (upon deep palpation) Extremities: Normal Inspection, Normal Range of Motion Sepsis Event Note - Evaluation Sepsis Screening Result: No Definite Risk - Focused Exam Vital Signs: Vital Signs Temp Pulse Resp BP BP Pulse Ox 04/22/20 08:12 162/89 H 04/22/20 04:00 36.2 C 70 16 159/72 H 93 L 04/22/20 00:30 175/71 H 04/21/20 23:40 36.5 C 67 16 190/74 H 94 L - Problem List & Annotations (1) Diverticulitis of intestine with perforation SNOMED Code(s): 834266384, 252722669 Code(s): K57.80 - DVTRCLI OF INTEST, PART UNSP, W PERF AND ABSCESS W/O BLEED Status: Acute Current Visit: Yes Qualifiers: Diverticulitis site: small intestine Diverticulitis bleeding: without bleeding Qualified Code(s): K57.00 - Diverticulitis of small intestine with perforation and abscess without bleeding (2) DM type 2 (diabetes mellitus, type 2) SNOMED Code(s): 08124976 Code(s): E11.9 - TYPE 2 DIABETES MELLITUS WITHOUT COMPLICATIONS Status: Chronic Current Visit: Yes Qualifiers: Diabetes mellitus elastic assembler insulin use: without elastic assembler use Diabetes mellitus complication status: without complication Qualified Code(s): E11.9 - Type 2 diabetes mellitus without complications (3) HTN (hypertension) SNOMED Code(s): 16370145 Code(s): I10 - ESSENTIAL (PRIMARY) HYPERTENSION Status: Chronic Current Visit: Yes Qualifiers: Hypertension type: essential hypertension Qualified Code(s): I10 - Essential (primary) hypertension - Problem List Review Problem List Initiated/Reviewed/Updated: Yes - Plan Plan:: This 84 year old female admitted acute small bowel diverticulitis 1. Acute small bowel diverticulitis with microperforation - Mild improvement today - NPO sips with meds, will advance to clears - LR 100 mls/hr - Zosyn 3.725 mg IV Q6hr - Stool Studies, send stool occult as stool looked dark - Dr Maldonado, General surgery on board 2. HTN: - Labetalol PRN ordered - Improved today, will continue home medications 3. DM Type 2 - BS check every 6 hours - Novolog SSI VTE prophylaxis: Heparin Dispo: 2-3 days,
[2020-04-22] MEDS: Pantoprazole 40 MG in Sodium Chloride 0.9% 10 ML IV SCH (12:30)
--- NOTE | 2020-04-22 15:30 | PCM.SURGPN ---
- General Info Date of Service: 04/22/20 Functional Status: Reports: Pain Controlled (pt soundly snoring, sleeping comfortably; wbc is normal; nausea resolved per nursing) - Patient Data Vitals - Most Recent: Last Vital Signs Temp 98.8 F 04/22/20 11:33 Pulse 61 04/22/20 11:33 Resp 16 04/22/20 11:33 BP 169/80 H 04/22/20 11:33 Pulse Ox 96 04/22/20 07:00 Weight - Most Recent: 130 lb I&O - Last 24 Hours: Intake & Output 04/22/20 04/22/20 04/22/20 06:59 14:59 22:59 Intake Total 60 1250 Output Total 1200 Balance -1140 1250 Lab Results Last 24 Hrs: Laboratory Results - last 24 hr 04/21/20 04/21/20 04/22/20 Range/Units 17:03 23:46 05:10 WBC 9.08 (4.0-11.0) K/uL RBC 3.22 L (4.30-5.90) M/uL Hgb 9.4 L (12.0-16.0) g/dL Hct 28.3 L (36.0-46.0) % MCV 87.9 (80.0-98.0) fL MCH 29.2 (27.0-32.0) pg MCHC 33.2 (31.0-37.0) g/dL RDW Std Deviation 45.6 (28.0-62.0) fl RDW Coeff of Candido 14 (11.0-15.0) % Plt Count 223 (150-400) K/uL MPV 9.80 (7.40-12.00) fL Neut % (Auto) 71.6 (48.0-80.0) % Lymph % (Auto) 19.7 (16.0-40.0) % [place] % (Auto) 6.7 (0.0-15.0) % Eos % (Auto) 1.8 (0.0-7.0) % Baso % (Auto) 0.2 (0.0-1.5) % Neut # (Auto) 6.5 H (1.4-5.7) K/uL Lymph # (Auto) 1.8 (0.6-2.4) K/uL [place] # (Auto) 0.6 (0.0-0.8) K/uL Eos # (Auto) 0.2 (0.0-0.7) K/uL Baso # (Auto) 0.0 (0.0-0.1) K/uL Nucleated RBC % 0.0 /100WBC Nucleated RBCs # 0 K/uL Sodium (136-145) mmol/L Potassium (3.5-5.1) mmol/L Chloride (98-107) mmol/L Carbon Dioxide (21.0-32.0) mmol/L BUN (7.0-18.0) mg/dL Creatinine (0.6-1.0) mg/dL Est Cr Clr Drug Dosing mL/min Estimated GFR (MDRD) ml/min Glucose (74-106) mg/dL POC Glucose 81 72 (60-110) mg/dL Calcium (8.5-10.1) mg/dL Total Bilirubin (0.2-1.0) mg/dL AST (15-37) IU/L ALT (14-63) IU/L Alkaline Phosphatase (46-116) U/L Total Protein (6.4-8.2) g/dL Albumin (3.4-5.0) g/dL Globulin (2.6-4.0) g/dL Albumin/Globulin Ratio (0.9-1.6) 04/22/20 04/22/20 04/22/20 Range/Units 05:10 05:56 12:34 WBC (4.0-11.0) K/uL RBC (4.30-5.90) M/uL Hgb (12.0-16.0) g/dL Hct (36.0-46.0) % MCV (80.0-98.0) fL MCH (27.0-32.0) pg MCHC (31.0-37.0) g/dL RDW Std Deviation (28.0-62.0) fl RDW Coeff of Candido (11.0-15.0) % Plt Count (150-400) K/uL MPV (7.40-12.00) fL Neut % (Auto) (48.0-80.0) % Lymph % (Auto) (16.0-40.0) % [place] % (Auto) (0.0-15.0) % Eos % (Auto) (0.0-7.0) % Baso % (Auto) (0.0-1.5) % Neut # (Auto) (1.4-5.7) K/uL Lymph # (Auto) (0.6-2.4) K/uL [place] # (Auto) (0.0-0.8) K/uL Eos # (Auto) (0.0-0.7) K/uL Baso # (Auto) (0.0-0.1) K/uL Nucleated RBC % /100WBC Nucleated RBCs # K/uL Sodium 140 (136-145) mmol/L Potassium 4.0 (3.5-5.1) mmol/L Chloride 109 H (98-107) mmol/L Carbon Dioxide 20.1 L (21.0-32.0) mmol/L BUN 15 (7.0-18.0) mg/dL Creatinine 1.2 H (0.6-1.0) mg/dL Est Cr Clr Drug Dosing 31.21 mL/min Estimated GFR (MDRD) 43.0 ml/min Glucose 84 (74-106) mg/dL POC Glucose 86 81 (60-110) mg/dL Calcium 7.8 L (8.5-10.1) mg/dL Total Bilirubin 1.0 (0.2-1.0) mg/dL AST 13 L (15-37) IU/L ALT 14 (14-63) IU/L Alkaline Phosphatase 59 (46-116) U/L Total Protein 6.6 (6.4-8.2) g/dL Albumin 2.4 L (3.4-5.0) g/dL Globulin 4.2 H (2.6-4.0) g/dL Albumin/Globulin Ratio 0.6 L (0.9-1.6) Fabiano Results Last 24 Hrs: Microbiology 04/22/20 11:15 Stool Occult Blood (FABIANO) - Final Stool / Feces 04/22/20 11:15 C. difficile Antigen & Toxins A,B - Final Stool / Feces Med Orders - Current: Current Medications Acetaminophen (Tylenol) 650 mg PO Q4H PRN PRN Reason: Pain Last Admin: 04/21/20 09:37 Dose: 650 mg Documented by: Amlodipine Besylate (Norvasc) 10 mg PO DAILY [facility] Last Admin: 04/22/20 08:12 Dose: 10 mg Documented by: Heparin Sodium (Porcine) (Heparin Sodium) 5,000 units SUBCUT Q12H [facility] Last Admin: 04/22/20 12:30 Dose: 5,000 units Documented by: Piperacillin Sod/Tazobactam (Sod 2.25 gm/ Sodium Chloride) 50 mls @ 100 mls/hr IV Q6H [facility] Last Admin: 04/22/20 14:13 Dose: 100 mls/hr Documented by: Pantoprazole Sodium 40 mg/ (Sodium Chloride) 10 mls @ 300 mls/hr IV Q24H [facility] Last Admin: 04/22/20 12:30 Dose: 300 mls/hr Documented by: Lactated Ringer's (Ringers, Lactated) 1,000 mls @ 100 mls/hr IV Q10H [facility] Last Admin: 04/22/20 06:01 Dose: 100 mls/hr Documented by: Insulin Aspart (Novolog) 0 unit SUBCUT Q6H [facility]; Protocol Last Admin: 04/22/20 12:46 Dose: Not Given Documented by: Labetalol HCl (Normodyne) 10 mg IVPUSH Q4H PRN PRN Reason: SBP>180 Last Admin: 04/21/20 23:50 Dose: 10 mg Documented by: Lisinopril (Prinivil) 20 mg PO DAILY [facility] Last Admin: 04/22/20 08:12 Dose: 20 mg Documented by: Morphine Sulfate (Morphine) 2 mg IVPUSH Q4H PRN PRN Reason: Pain (severe 7-10) Last Admin: 04/21/20 20:20 Dose: 2 mg Documented by: Ondansetron HCl (Zofran) 4 mg IVPUSH Q4H PRN PRN Reason: Nausea Sodium Chloride (Saline Flush) 10 ml FLUSH ASDIRECTED PRN PRN Reason: Keep Vein Open Last Admin: 04/20/20 07:40 Dose: 10 ml Documented by: Sodium Chloride (Saline Flush) 2.5 ml FLUSH ASDIRECTED PRN PRN Reason: Keep Vein Open Last Admin: 04/20/20 07:40 Dose: 2.5 ml Documented by: Discontinued Medications Amlodipine Besylate (Norvasc) 10 mg PO ONETIME ONE Stop: 04/20/20 06:39 Last Admin: 04/20/20 06:49 Dose: 10 mg Documented by: Sodium Chloride (Normal Saline) 1,000 mls @ 999 mls/hr IV .Bolus ONE Stop: 04/20/20 06:59 Last Admin: 04/20/20 06:10 Dose: 999 mls/hr Documented by: Piperacillin Sod/Tazobactam (Sod 3.375 gm/ Sodium Chloride) 50 mls @ 100 mls/hr IV ONETIME ONE Stop: 04/20/20 07:37 Last Admin: 04/20/20 07:39 Dose: 100 mls/hr Documented by: Sodium Chloride (Normal Saline) 1,000 mls @ 125 mls/hr IV Q8H [facility] Last Admin: 04/21/20 03:28 Dose: 125 mls/hr Documented by: Lisinopril (Prinivil) 20 mg PO ONETIME ONE Stop: 04/20/20 06:39 Last Admin: 04/20/20 06:43 Dose: 20 mg Documented by: Morphine Sulfate (Morphine) 4 mg IVPUSH ONETIME ONE Stop: 04/20/20 06:00 Last Admin: 04/20/20 06:10 Dose: 4 mg Documented by: Ondansetron HCl (Zofran) 4 mg IVPUSH ONETIME ONE Stop: 04/20/20 06:00 Last Admin: 04/20/20 06:10 Dose: 4 mg Documented by: - Exam GI/Abdominal Exam: Other (pt is sleeping, woul exam in the morning) Sepsis Event Note - Evaluation Sepsis Screening Result: No Definite Risk - Focused Exam Vital Signs: Vital Signs Temp Pulse Resp BP BP Pulse Ox 04/22/20 11:33 98.8 F 61 16 169/80 H 04/22/20 08:12 162/89 H 04/22/20 07:00 98.6 F 62 16 162/89 H 96 04/22/20 04:00 97.1 F 70 16 159/72 H 93 L - Problem List Review Problem List Initiated/Reviewed/Updated: Yes - My Orders Last 24 Hours: Active Orders 24 hr Category Date Time Status CBC WITH AUTO DIFF [HEME] AM Lab 04/23/20 05:11 Ordered CLOSTRIDIUM DIFFICILE TOX RFLX [MREF] Urgent Lab 04/22/20 11:15 Received COMPREHENSIVE METABOLIC PN,CMP [CHEM] AM Lab 04/23/20 05:11 Ordered STOOL CULTURE/SHIGA TOXIN [MREF] Urgent Lab 04/22/20 11:15 Received Medication Orders Acetaminophen (Tylenol) 650 mg PO Q4H PRN PRN Reason: Pain Last Admin: 04/21/20 09:37 Dose: 650 mg Documented by: ALHAJI Amlodipine Besylate (Norvasc) 10 mg PO DAILY [facility] Last Admin: 04/22/20 08:12 Dose: 10 mg Documented by: VINNIE Cosigned by: ASPEN Admin: 04/21/20 09:36 Dose: 10 mg Documented by: ALHAJI Heparin Sodium (Porcine) (Heparin Sodium) 5,000 units SUBCUT Q12H [facility] Last Admin: 04/22/20 12:30 Dose: 5,000 units Documented by: Admin: 04/22/20 00:19 Dose: 5,000 units Documented by: Admin: 04/21/20 12:17 Dose: 5,000 units Documented by: Admin: 04/21/20 00:46 Dose: 5,000 units Documented by: Admin: 04/20/20 13:20 Dose: 5,000 units Documented by: ALHAJI Piperacillin Sod/Tazobactam (Sod 2.25 gm/ Sodium Chloride) 50 mls @ 100 mls/hr IV Q6H [facility] Last Admin: 04/22/20 14:13 Dose: 100 mls/hr Documented by: Infusion: 04/22/20 08:09 Dose: 100 mls/hr Documented by: Admin: 04/22/20 07:39 Dose: 100 mls/hr Documented by: Infusion: 04/22/20 01:00 Dose: 100 mls/hr Documented by: Admin: 04/22/20 00:30 Dose: 100 mls/hr Documented by: Infusion: 04/21/20 19:59 Dose: 100 mls/hr Documented by: Admin: 04/21/20 19:29 Dose: 100 mls/hr Documented by: Infusion: 04/21/20 13:42 Dose: 100 mls/hr Documented by: Admin: 04/21/20 13:12 Dose: 100 mls/hr Documented by: Infusion: 04/21/20 08:11 Dose: 100 mls/hr Documented by: Admin: 04/21/20 07:41 Dose: 100 mls/hr Documented by: Infusion: 04/21/20 01:14 Dose: 100 mls/hr Documented by: Admin: 04/21/20 00:44 Dose: 100 mls/hr Documented by: Infusion: 04/20/20 19:41 Dose: 100 mls/hr Documented by: Admin: 04/20/20 19:11 Dose: 100 mls/hr Documented by: Infusion: 04/20/20 13:14 Dose: 100 mls/hr Documented by: Admin: 04/20/20 12:44 Dose: 100 mls/hr Documented by: CINDY Pantoprazole Sodium 40 mg/ (Sodium Chloride) 10 mls @ 300 mls/hr IV Q24H [facility] Last Admin: 04/22/20 12:30 Dose: 300 mls/hr Documented by: Infusion: 04/21/20 12:17 Dose: 300 mls/hr Documented by: Admin: 04/21/20 12:15 Dose: 300 mls/hr Documented by: Infusion: 04/20/20 12:41 Dose: 300 mls/hr Documented by: Admin: 04/20/20 12:39 Dose: 300 mls/hr Documented by: CINDY Lactated Ringer's (Ringers, Lactated) 1,000 mls @ 100 mls/hr IV Q10H [facility] Last Admin: 04/22/20 06:01 Dose: 100 mls/hr Documented by: Infusion: 04/22/20 05:28 Dose: 100 mls/hr Documented by: Admin: 04/21/20 19:28 Dose: 100 mls/hr Documented by: Infusion: 04/21/20 18:32 Dose: 100 mls/hr Documented by: Admin: 04/21/20 08:32 Dose: 100 mls/hr Documented by: ALHAJI Insulin Aspart (Novolog) 0 unit SUBCUT Q6H [facility]; Protocol Last Admin: 04/22/20 12:46 Dose: Not Given Documented by: Admin: 04/22/20 06:12 Dose: Not Given Documented by: Admin: 04/22/20 00:17 Dose: Not Given Documented by: Admin: 04/21/20 17:57 Dose: Not Given Documented by: Admin: 04/21/20 12:08 Dose: Not Given Documented by: Admin: 04/21/20 07:21 Dose: Not Given Documented by: Admin: 04/21/20 00:41 Dose: Not Given Documented by: Admin: 04/20/20 18:07 Dose: Not Given Documented by: ALHAJI Labetalol HCl (Normodyne) 10 mg IVPUSH Q4H PRN PRN Reason: SBP>180 Last Admin: 04/21/20 23:50 Dose: 10 mg Documented by: Admin: 04/20/20 12:35 Dose: 10 mg Documented by: CINDY Lisinopril (Prinivil) 20 mg PO DAILY [facility] Last Admin: 04/22/20 08:12 Dose: 20 mg Documented by: VINNIE Cosigned by: ASPEN Admin: 04/21/20 09:36 Dose: 20 mg Documented by: ALHAJI Morphine Sulfate (Morphine) 2 mg IVPUSH Q4H PRN PRN Reason: Pain (severe 7-10) Last Admin: 04/21/20 20:20 Dose: 2 mg Documented by: Admin: 04/20/20 20:18 Dose: 2 mg Documented by: SANTINO Ondansetron HCl (Zofran) 4 mg IVPUSH Q4H PRN PRN Reason: Nausea Sodium Chloride (Saline Flush) 10 ml FLUSH ASDIRECTED PRN PRN Reason: Keep Vein Open Last Admin: 04/20/20 07:40 Dose: 10 ml Documented by: MORGAN Sodium Chloride (Saline Flush) 2.5 ml FLUSH ASDIRECTED PRN PRN Reason: Keep Vein Open Last Admin: 04/20/20 07:40 Dose: 2.5 ml Documented by: MORGAN - Assessment Assessment (Free Text/Narrative):: number looked good; pt has diverticulitis, w mircroperf and abscess, would co ntinue iv abx till completely pain free before feeding; as the alternative is hood procedure; continue to follow w you - Plan Plan (Free Text/Narrative):: number looked good; pt has diverticulitis, w mircroperf and abscess, would continue iv abx till completely pain free before feeding; as the alternative is hood procedure; continue to follow w you
[2020-04-22] MEDS: Vancomycin 25 MG/ML Compounding Kit PO SCH ×2 (18:14→23:30)
[2020-04-22] MEDS: Acetaminophen 325 MG Tab PO PRN (23:38)
[2020-04-23] MEDS: Insulin Aspart 100 Units/ML 3 ML Pen SUBCUT SCH ×4 (00:28→18:15)
[2020-04-23] MEDS: Heparin Sodium 5,000 Units/ML Vial SUBCUT SCH ×2 (01:37→18:16)
[2020-04-23] MEDS: Piperacillin/Tazobactam 2.25 GM in Sodium Chloride 0.9% 50 ML IV SCH ×4 (01:40→19:55)
[2020-04-23] MEDS: Lactated Ringers 1,000 ML IV SCH ×3 (04:10→22:18)
[2020-04-23] MEDS: Vancomycin 25 MG/ML Compounding Kit PO SCH ×4 (06:09→22:17)
[2020-04-23 06:19] LABS: CARBON DIOXIDE,CO2 21.3 mmol/L (21.0-32.0); POTASSIUM,K 3.5 mmol/L (3.5-5.1)
[2020-04-23] MEDS: Levothyroxine 112 MCG Tab PO SCH (06:43)
--- NOTE | 2020-04-23 08:40 | PCM.SURGPN ---
- General Info Date of Service: 04/23/20 Functional Status: Reports: Pain Controlled ("no pain" word from the tiger's mouth; passing flatus, had BM, no blood, wbc 8) - Patient Data Vitals - Most Recent: Last Vital Signs Temp 98 F 04/23/20 04:00 Pulse 65 04/23/20 04:00 Resp 18 04/23/20 04:00 BP 164/61 H 04/23/20 04:00 Pulse Ox 92 L 04/23/20 04:00 Weight - Most Recent: 130 lb I&O - Last 24 Hours: Intake & Output 04/22/20 04/23/20 04/23/20 22:59 06:59 14:59 Intake Total 1284 1015 50 Output Total 1500 1200 Balance -216 -185 50 Lab Results Last 24 Hrs: Laboratory Results - last 24 hr 04/22/20 04/22/20 04/22/20 Range/Units 12:34 17:39 23:41 WBC (4.0-11.0) K/uL RBC (4.30-5.90) M/uL Hgb (12.0-16.0) g/dL Hct (36.0-46.0) % MCV (80.0-98.0) fL MCH (27.0-32.0) pg MCHC (31.0-37.0) g/dL RDW Std Deviation (28.0-62.0) fl RDW Coeff of Candido (11.0-15.0) % Plt Count (150-400) K/uL MPV (7.40-12.00) fL Neut % (Auto) (48.0-80.0) % Lymph % (Auto) (16.0-40.0) % [place] % (Auto) (0.0-15.0) % Eos % (Auto) (0.0-7.0) % Baso % (Auto) (0.0-1.5) % Neut # (Auto) (1.4-5.7) K/uL Lymph # (Auto) (0.6-2.4) K/uL [place] # (Auto) (0.0-0.8) K/uL Eos # (Auto) (0.0-0.7) K/uL Baso # (Auto) (0.0-0.1) K/uL Nucleated RBC % /100WBC Nucleated RBCs # K/uL Sodium (136-145) mmol/L Potassium (3.5-5.1) mmol/L Chloride (98-107) mmol/L Carbon Dioxide (21.0-32.0) mmol/L BUN (7.0-18.0) mg/dL Creatinine (0.6-1.0) mg/dL Est Cr Clr Drug Dosing mL/min Estimated GFR (MDRD) ml/min Glucose (74-106) mg/dL POC Glucose 81 86 77 (60-110) mg/dL Calcium (8.5-10.1) mg/dL Total Bilirubin (0.2-1.0) mg/dL AST (15-37) IU/L ALT (14-63) IU/L Alkaline Phosphatase (46-116) U/L Total Protein (6.4-8.2) g/dL Albumin (3.4-5.0) g/dL Globulin (2.6-4.0) g/dL Albumin/Globulin Ratio (0.9-1.6) 04/23/20 04/23/20 04/23/20 Range/Units 04:43 04:43 06:12 WBC 8.66 (4.0-11.0) K/uL RBC 3.14 L (4.30-5.90) M/uL Hgb 9.1 L (12.0-16.0) g/dL Hct 27.2 L (36.0-46.0) % MCV 86.6 (80.0-98.0) fL MCH 29.0 (27.0-32.0) pg MCHC 33.5 (31.0-37.0) g/dL RDW Std Deviation 43.0 (28.0-62.0) fl RDW Coeff of Candido 14 (11.0-15.0) % Plt Count 242 (150-400) K/uL MPV 10.00 (7.40-12.00) fL Neut % (Auto) 67.0 (48.0-80.0) % Lymph % (Auto) 23.1 (16.0-40.0) % [place] % (Auto) 8.5 (0.0-15.0) % Eos % (Auto) 1.2 (0.0-7.0) % Baso % (Auto) 0.2 (0.0-1.5) % Neut # (Auto) 5.8 H (1.4-5.7) K/uL Lymph # (Auto) 2.0 (0.6-2.4) K/uL [place] # (Auto) 0.7 (0.0-0.8) K/uL Eos # (Auto) 0.1 (0.0-0.7) K/uL Baso # (Auto) 0.0 (0.0-0.1) K/uL Nucleated RBC % 0.0 /100WBC Nucleated RBCs # 0 K/uL Sodium 140 (136-145) mmol/L Potassium 3.5 (3.5-5.1) mmol/L Chloride 106 (98-107) mmol/L Carbon Dioxide 21.3 (21.0-32.0) mmol/L BUN 15 (7.0-18.0) mg/dL Creatinine 1.2 H (0.6-1.0) mg/dL Est Cr Clr Drug Dosing 31.21 mL/min Estimated GFR (MDRD) 43.0 ml/min Glucose 74 (74-106) mg/dL POC Glucose 74 (60-110) mg/dL Calcium 7.7 L (8.5-10.1) mg/dL Total Bilirubin 1.2 H (0.2-1.0) mg/dL AST 11 L (15-37) IU/L ALT 16 (14-63) IU/L Alkaline Phosphatase 57 (46-116) U/L Total Protein 6.5 (6.4-8.2) g/dL Albumin 2.4 L (3.4-5.0) g/dL Globulin 4.1 H (2.6-4.0) g/dL Albumin/Globulin Ratio 0.6 L (0.9-1.6) Vicente Results Last 24 Hrs: Microbiology 04/22/20 11:15 Stool Occult Blood (VIECNTE) - Final Stool / Feces 04/22/20 11:15 C. difficile Antigen & Toxins A,B - Final Stool / Feces Med Orders - Current: Current Medications Acetaminophen (Tylenol) 650 mg PO Q4H PRN PRN Reason: Pain Last Admin: 04/22/20 23:38 Dose: 650 mg Documented by: Amlodipine Besylate (Norvasc) 10 mg PO DAILY [facility] Last Admin: 04/22/20 08:12 Dose: 10 mg Documented by: Heparin Sodium (Porcine) (Heparin Sodium) 5,000 units SUBCUT Q12H [facility] Last Admin: 04/23/20 01:37 Dose: 5,000 units Documented by: Piperacillin Sod/Tazobactam (Sod 2.25 gm/ Sodium Chloride) 50 mls @ 100 mls/hr IV Q6H [facility] Last Admin: 04/23/20 06:41 Dose: 100 mls/hr Documented by: Pantoprazole Sodium 40 mg/ (Sodium Chloride) 10 mls @ 300 mls/hr IV Q24H [facility] Last Admin: 04/22/20 12:30 Dose: 300 mls/hr Documented by: Lactated Ringer's (Ringers, Lactated) 1,000 mls @ 100 mls/hr IV Q10H [facility] Last Admin: 04/23/20 04:10 Dose: 100 mls/hr Documented by: Insulin Aspart (Novolog) 0 unit SUBCUT Q6H [facility]; Protocol Last Admin: 04/23/20 06:12 Dose: Not Given Documented by: Labetalol HCl (Normodyne) 10 mg IVPUSH Q4H PRN PRN Reason: SBP>180 Last Admin: 04/21/20 23:50 Dose: 10 mg Documented by: Levothyroxine Sodium (Levothyroxine) 112 mcg PO ACBRK [facility] Last Admin: 04/23/20 06:43 Dose: 112 mcg Documented by: Lisinopril (Prinivil) 20 mg PO DAILY [facility] Last Admin: 04/22/20 08:12 Dose: 20 mg Documented by: Morphine Sulfate (Morphine) 2 mg IVPUSH Q4H PRN PRN Reason: Pain (severe 7-10) Last Admin: 04/21/20 20:20 Dose: 2 mg Documented by: Ondansetron HCl (Zofran) 4 mg IVPUSH Q4H PRN PRN Reason: Nausea Sodium Chloride (Saline Flush) 10 ml FLUSH ASDIRECTED PRN PRN Reason: Keep Vein Open Last Admin: 04/20/20 07:40 Dose: 10 ml Documented by: Sodium Chloride (Saline Flush) 2.5 ml FLUSH ASDIRECTED PRN PRN Reason: Keep Vein Open Last Admin: 04/20/20 07:40 Dose: 2.5 ml Documented by: Vancomycin HCl (First-Vancomycin 25 Compounding Kit) 125 mg PO Q6H [facility] Last Admin: 04/23/20 06:09 Dose: 125 mg Documented by: Discontinued Medications Amlodipine Besylate (Norvasc) 10 mg PO ONETIME ONE Stop: 04/20/20 06:39 Last Admin: 04/20/20 06:49 Dose: 10 mg Documented by: Sodium Chloride (Normal Saline) 1,000 mls @ 999 mls/hr IV .Bolus ONE Stop: 04/20/20 06:59 Last Admin: 04/20/20 06:10 Dose: 999 mls/hr Documented by: Piperacillin Sod/Tazobactam (Sod 3.375 gm/ Sodium Chloride) 50 mls @ 100 mls/hr IV ONETIME ONE Stop: 04/20/20 07:37 Last Admin: 04/20/20 07:39 Dose: 100 mls/hr Documented by: Sodium Chloride (Normal Saline) 1,000 mls @ 125 mls/hr IV Q8H [facility] Last Admin: 04/21/20 03:28 Dose: 125 mls/hr Documented by: Lisinopril (Prinivil) 20 mg PO ONETIME ONE Stop: 04/20/20 06:39 Last Admin: 04/20/20 06:43 Dose: 20 mg Documented by: Morphine Sulfate (Morphine) 4 mg IVPUSH ONETIME ONE Stop: 04/20/20 06:00 Last Admin: 04/20/20 06:10 Dose: 4 mg Documented by: Ondansetron HCl (Zofran) 4 mg IVPUSH ONETIME ONE Stop: 04/20/20 06:00 Last Admin: 04/20/20 06:10 Dose: 4 mg Documented by: - Exam GI/Abdominal Exam: Soft ("sore" on RLQ, no rebound, nontender?) Sepsis Event Note - Evaluation Sepsis Screening Result: No Definite Risk - Focused Exam Vital Signs: Vital Signs Temp Pulse Resp BP Pulse Ox 04/23/20 04:00 98 F 65 18 164/61 H 92 L 04/22/20 23:31 99.1 F 71 19 174/64 H 95 - Problem List Review Problem List Initiated/Reviewed/Updated: Yes - My Orders Last 24 Hours: Active Orders 24 hr Category Date Time Status CLOSTRIDIUM DIFFICILE TOX RFLX [MREF] Urgent Lab 04/22/20 11:15 Received STOOL CULTURE/SHIGA TOXIN [MREF] Urgent Lab 04/22/20 11:15 Received Levothyroxine Med 04/23/20 07:30 Active 112 mcg PO ACBRK Vancomycin [First-Vancomycin 25 Compounding Kit] Med 04/22/20 17:45 Active 125 mg PO Q6H Medication Orders Acetaminophen (Tylenol) 650 mg PO Q4H PRN PRN Reason: Pain Last Admin: 04/22/20 23:38 Dose: 650 mg Documented by: Admin: 04/21/20 09:37 Dose: 650 mg Documented by: ALHAJI Amlodipine Besylate (Norvasc) 10 mg PO DAILY [facility] Last Admin: 04/22/20 08:12 Dose: 10 mg Documented by: VINNIE Cosigned by: ASPEN Admin: 04/21/20 09:36 Dose: 10 mg Documented by: ALHAJI Heparin Sodium (Porcine) (Heparin Sodium) 5,000 units SUBCUT Q12H [facility] Last Admin: 04/23/20 01:37 Dose: 5,000 units Documented by: Admin: 04/22/20 12:30 Dose: 5,000 units Documented by: Admin: 04/22/20 00:19 Dose: 5,000 units Documented by: Admin: 04/21/20 12:17 Dose: 5,000 units Documented by: Admin: 04/21/20 00:46 Dose: 5,000 units Documented by: Admin: 04/20/20 13:20 Dose: 5,000 units Documented by: ALHAJI Piperacillin Sod/Tazobactam (Sod 2.25 gm/ Sodium Chloride) 50 mls @ 100 mls/hr IV Q6H [facility] Last Admin: 04/23/20 06:41 Dose: 100 mls/hr Documented by: Infusion: 04/23/20 02:10 Dose: 100 mls/hr Documented by: Admin: 04/23/20 01:40 Dose: 100 mls/hr Documented by: Infusion: 04/22/20 20:01 Dose: 100 mls/hr Documented by: Admin: 04/22/20 19:31 Dose: 100 mls/hr Documented by: Infusion: 04/22/20 14:43 Dose: 100 mls/hr Documented by: Admin: 04/22/20 14:13 Dose: 100 mls/hr Documented by: Infusion: 04/22/20 08:09 Dose: 100 mls/hr Documented by: Admin: 04/22/20 07:39 Dose: 100 mls/hr Documented by: Infusion: 04/22/20 01:00 Dose: 100 mls/hr Documented by: Admin: 04/22/20 00:30 Dose: 100 mls/hr Documented by: Infusion: 04/21/20 19:59 Dose: 100 mls/hr Documented by: Admin: 04/21/20 19:29 Dose: 100 mls/hr Documented by: Infusion: 04/21/20 13:42 Dose: 100 mls/hr Documented by: Admin: 04/21/20 13:12 Dose: 100 mls/hr Documented by: Infusion: 04/21/20 08:11 Dose: 100 mls/hr Documented by: Admin: 04/21/20 07:41 Dose: 100 mls/hr Documented by: Infusion: 04/21/20 01:14 Dose: 100 mls/hr Documented by: Admin: 04/21/20 00:44 Dose: 100 mls/hr Documented by: Infusion: 04/20/20 19:41 Dose: 100 mls/hr Documented by: Admin: 04/20/20 19:11 Dose: 100 mls/hr Documented by: Infusion: 04/20/20 13:14 Dose: 100 mls/hr Documented by: Admin: 04/20/20 12:44 Dose: 100 mls/hr Documented by: CINDY Pantoprazole Sodium 40 mg/ (Sodium Chloride) 10 mls @ 300 mls/hr IV Q24H [facility] Admin: 04/22/20 12:30 Dose: 300 mls/hr Documented by: Infusion: 04/21/20 12:17 Dose: 300 mls/hr Documented by: Admin: 04/21/20 12:15 Dose: 300 mls/hr Documented by: Infusion: 04/20/20 12:41 Dose: 300 mls/hr Documented by: Admin: 04/20/20 12:39 Dose: 300 mls/hr Documented by: CINDY Lactated Ringer's (Ringers, Lactated) 1,000 mls @ 100 mls/hr IV Q10H [facility] Last Admin: 04/23/20 04:10 Dose: 100 mls/hr Documented by: Infusion: 04/23/20 02:58 Dose: 100 mls/hr Documented by: Admin: 04/22/20 16:58 Dose: 100 mls/hr Documented by: JEAN-PIERRE Infusion: 04/22/20 16:01 Dose: 100 mls/hr Documented by: JEAN-PIERRE Admin: 04/22/20 06:01 Dose: 100 mls/hr Documented by: Infusion: 04/22/20 05:28 Dose: 100 mls/hr Documented by: Admin: 04/21/20 19:28 Dose: 100 mls/hr Documented by: Infusion: 04/21/20 18:32 Dose: 100 mls/hr Documented by: Admin: 04/21/20 08:32 Dose: 100 mls/hr Documented by: ALHAJI Insulin Aspart (Novolog) 0 unit SUBCUT Q6H [facility]; Protocol Last Admin: 04/23/20 06:12 Dose: Not Given Documented by: Admin: 04/23/20 00:28 Dose: Not Given Documented by: Admin: 04/22/20 17:51 Dose: Not Given Documented by: Admin: 04/22/20 12:46 Dose: Not Given Documented by: Admin: 04/22/20 06:12 Dose: Not Given Documented by: Admin: 04/22/20 00:17 Dose: Not Given Documented by: Admin: 04/21/20 17:57 Dose: Not Given Documented by: Admin: 04/21/20 12:08 Dose: Not Given Documented by: Admin: 04/21/20 07:21 Dose: Not Given Documented by: Admin: 04/21/20 00:41 Dose: Not Given Documented by: Admin: 09/22/20 18:07 Dose: Not Given Documented by: ALHAJI Labetalol HCl (Normodyne) 10 mg IVPUSH Q4H PRN PRN Reason: SBP>180 Last Admin: 04/21/20 23:50 Dose: 10 mg Documented by: Admin: 04/20/20 12:35 Dose: 10 mg Documented by: CINDY Levothyroxine Sodium (Levothyroxine) 112 mcg PO ACBRK [facility] Last Admin: 04/23/20 06:43 Dose: 112 mcg Documented by: MATTHEW Lisinopril (Prinivil) 20 mg PO DAILY [facility] Last Admin: 04/22/20 08:12 Dose: 20 mg Documented by: VINNIE Kellyigned by: ASPEN Admin: 04/21/20 09:36 Dose: 20 mg Documented by: ALHAJI Morphine Sulfate (Morphine) 2 mg IVPUSH Q4H PRN PRN Reason: Pain (severe 7-10) Last Admin: 04/21/20 20:20 Dose: 2 mg Documented by: Admin: 04/20/20 20:18 Dose: 2 mg Documented by: SANTINO Ondansetron HCl (Zofran) 4 mg IVPUSH Q4H PRN PRN Reason: Nausea Sodium Chloride (Saline Flush) 10 ml FLUSH ASDIRECTED PRN PRN Reason: Keep Vein Open Last Admin: 04/20/20 07:40 Dose: 10 ml Documented by: MORGAN Sodium Chloride (Saline Flush) 2.5 ml FLUSH ASDIRECTED PRN PRN Reason: Keep Vein Open Last Admin: 04/20/20 07:40 Dose: 2.5 ml Documented by: MORGAN Vancomycin HCl (First-Vancomycin 25 Compounding Kit) 125 mg PO Q6H [facility] Last Admin: 04/23/20 06:09 Dose: 125 mg Documented by: Admin: 04/22/20 23:30 Dose: 125 mg Documented by: Admin: 04/22/20 18:14 Dose: 125 mg Documented by: FRANKLYNMAC - Assessment Assessment (Free Text/Narrative):: clear liquid today; if no increase in pain and continue to do well, may adv full liquid over weekend and possible home; should be on abx X a total of 3 - 4 wks; low fiber diet for 3 - 6 months; hi fiber diet after diverticulitis completely resolve. fu colonoscopy 3 months or no pain, whatever goes first, should be addressed, not necessary proceed, or subs w CT w contrast consider pt's advance age; if home fu w me 1 - 2 wks; thks for the consult and care of this nice lady - Plan Plan (Free Text/Narrative):: clear liquid today; if no increase in pain and continue to do well, may adv full liquid over weekend and possible home; should be on abx X a total of 3 - 4 wks; low fiber diet for 3 - 6 months; hi fiber diet after diverticulitis completely resolve. fu colonoscopy 3 months or no pain, whatever goes first, should be addressed, not necessary proceed, or subs w CT w contrast consider pt's advance age; if home fu w me 1 - 2 wks; thks for the consult and care of this nice lady
--- NOTE | 2020-04-23 09:32 | PCM.PN ---
- General Info Date of Service: 04/23/20 - Review of Systems Systems Review Comment:: abdominal pain improving, denies diarrhea, but nurse reports loose stool last night - Patient Data Vitals - Most Recent: Last Vital Signs Temp 36.6 C 04/23/20 07:50 Pulse 61 04/23/20 07:50 Resp 16 04/23/20 07:50 BP 173/67 H 04/23/20 07:50 Pulse Ox 95 04/23/20 09:02 Weight - Most Recent: 58.967 kg I&O - Last 24 Hours: Intake & Output 04/22/20 04/23/20 04/23/20 22:59 06:59 14:59 Intake Total 1284 1015 50 Output Total 1500 1200 Balance -216 -185 50 Lab Results Last 24 Hours: Laboratory Results - last 24 hr 04/22/20 04/22/20 04/22/20 Range/Units 12:34 17:39 23:41 WBC (4.0-11.0) K/uL RBC (4.30-5.90) M/uL Hgb (12.0-16.0) g/dL Hct (36.0-46.0) % MCV (80.0-98.0) fL MCH (27.0-32.0) pg MCHC (31.0-37.0) g/dL RDW Std Deviation (28.0-62.0) fl RDW Coeff of [place] (11.0-15.0) % Plt Count (150-400) K/uL MPV (7.40-12.00) fL Neut % (Auto) (48.0-80.0) % Lymph % (Auto) (16.0-40.0) % [place] % (Auto) (0.0-15.0) % Eos % (Auto) (0.0-7.0) % Baso % (Auto) (0.0-1.5) % Neut # (Auto) (1.4-5.7) K/uL Lymph # (Auto) (0.6-2.4) K/uL [place] # (Auto) (0.0-0.8) K/uL Eos # (Auto) (0.0-0.7) K/uL Baso # (Auto) (0.0-0.1) K/uL Nucleated RBC % /100WBC Nucleated RBCs # K/uL Sodium (136-145) mmol/L Potassium (3.5-5.1) mmol/L Chloride (98-107) mmol/L Carbon Dioxide (21.0-32.0) mmol/L BUN (7.0-18.0) mg/dL Creatinine (0.6-1.0) mg/dL Est Cr Clr Drug Dosing mL/min Estimated GFR (MDRD) ml/min Glucose (74-106) mg/dL POC Glucose 81 86 77 (60-110) mg/dL Calcium (8.5-10.1) mg/dL Total Bilirubin (0.2-1.0) mg/dL AST (15-37) IU/L ALT (14-63) IU/L Alkaline Phosphatase (46-116) U/L Total Protein (6.4-8.2) g/dL Albumin (3.4-5.0) g/dL Globulin (2.6-4.0) g/dL Albumin/Globulin Ratio (0.9-1.6) 04/23/20 04/23/20 04/23/20 Range/Units 04:43 04:43 06:12 WBC 8.66 (4.0-11.0) K/uL RBC 3.14 L (4.30-5.90) M/uL Hgb 9.1 L (12.0-16.0) g/dL Hct 27.2 L (36.0-46.0) % MCV 86.6 (80.0-98.0) fL MCH 29.0 (27.0-32.0) pg MCHC 33.5 (31.0-37.0) g/dL RDW Std Deviation 43.0 (28.0-62.0) fl RDW Coeff of [place] 14 (11.0-15.0) % Plt Count 242 (150-400) K/uL MPV 10.00 (7.40-12.00) fL Neut % (Auto) 67.0 (48.0-80.0) % Lymph % (Auto) 23.1 (16.0-40.0) % [place] % (Auto) 8.5 (0.0-15.0) % Eos % (Auto) 1.2 (0.0-7.0) % Baso % (Auto) 0.2 (0.0-1.5) % Neut # (Auto) 5.8 H (1.4-5.7) K/uL Lymph # (Auto) 2.0 (0.6-2.4) K/uL [place] # (Auto) 0.7 (0.0-0.8) K/uL Eos # (Auto) 0.1 (0.0-0.7) K/uL Baso # (Auto) 0.0 (0.0-0.1) K/uL Nucleated RBC % 0.0 /100WBC Nucleated RBCs # 0 K/uL Sodium 140 (136-145) mmol/L Potassium 3.5 (3.5-5.1) mmol/L Chloride 106 (98-107) mmol/L Carbon Dioxide 21.3 (21.0-32.0) mmol/L BUN 15 (7.0-18.0) mg/dL Creatinine 1.2 H (0.6-1.0) mg/dL Est Cr Clr Drug Dosing 31.21 mL/min Estimated GFR (MDRD) 43.0 ml/min Glucose 74 (74-106) mg/dL POC Glucose 74 (60-110) mg/dL Calcium 7.7 L (8.5-10.1) mg/dL Total Bilirubin 1.2 H (0.2-1.0) mg/dL AST 11 L (15-37) IU/L ALT 16 (14-63) IU/L Alkaline Phosphatase 57 (46-116) U/L Total Protein 6.5 (6.4-8.2) g/dL Albumin 2.4 L (3.4-5.0) g/dL Globulin 4.1 H (2.6-4.0) g/dL Albumin/Globulin Ratio 0.6 L (0.9-1.6) Fabiano Results Last 24 Hours: Microbiology 04/22/20 11:15 Stool Occult Blood (FABIANO) - Final Stool / Feces 04/22/20 11:15 C. difficile Antigen & Toxins A,B - Final Stool / Feces Med Orders - Current: Current Medications Acetaminophen (Tylenol) 650 mg PO Q4H PRN PRN Reason: Pain Last Admin: 04/22/20 23:38 Dose: 650 mg Documented by: Amlodipine Besylate (Norvasc) 10 mg PO DAILY [facility] Last Admin: 04/22/20 08:12 Dose: 10 mg Documented by: Heparin Sodium (Porcine) (Heparin Sodium) 5,000 units SUBCUT Q12H [facility] Last Admin: 04/23/20 01:37 Dose: 5,000 units Documented by: Piperacillin Sod/Tazobactam (Sod 2.25 gm/ Sodium Chloride) 50 mls @ 100 mls/hr IV Q6H [facility] Last Admin: 04/23/20 06:41 Dose: 100 mls/hr Documented by: Pantoprazole Sodium 40 mg/ (Sodium Chloride) 10 mls @ 300 mls/hr IV Q24H [facility] Last Admin: 04/22/20 12:30 Dose: 300 mls/hr Documented by: Lactated Ringer's (Ringers, Lactated) 1,000 mls @ 100 mls/hr IV Q10H [facility] Last Admin: 04/23/20 04:10 Dose: 100 mls/hr Documented by: Insulin Aspart (Novolog) 0 unit SUBCUT Q6H [facility]; Protocol Last Admin: 04/23/20 06:12 Dose: Not Given Documented by: Labetalol HCl (Normodyne) 10 mg IVPUSH Q4H PRN PRN Reason: SBP>180 Last Admin: 04/21/20 23:50 Dose: 10 mg Documented by: Levothyroxine Sodium (Levothyroxine) 112 mcg PO ACBRK [facility] Last Admin: 04/23/20 06:43 Dose: 112 mcg Documented by: Lisinopril (Prinivil) 20 mg PO DAILY [facility] Last Admin: 04/22/20 08:12 Dose: 20 mg Documented by: Morphine Sulfate (Morphine) 2 mg IVPUSH Q4H PRN PRN Reason: Pain (severe 7-10) Last Admin: 04/21/20 20:20 Dose: 2 mg Documented by: Ondansetron HCl (Zofran) 4 mg IVPUSH Q4H PRN PRN Reason: Nausea Sodium Chloride (Saline Flush) 10 ml FLUSH ASDIRECTED PRN PRN Reason: Keep Vein Open Last Admin: 04/20/20 07:40 Dose: 10 ml Documented by: Sodium Chloride (Saline Flush) 2.5 ml FLUSH ASDIRECTED PRN PRN Reason: Keep Vein Open Last Admin: 04/20/20 07:40 Dose: 2.5 ml Documented by: Vancomycin HCl (First-Vancomycin 25 Compounding Kit) 125 mg PO Q6H [facility] Last Admin: 04/23/20 06:09 Dose: 125 mg Documented by: Discontinued Medications Amlodipine Besylate (Norvasc) 10 mg PO ONETIME ONE Stop: 04/20/20 06:39 Last Admin: 04/20/20 06:49 Dose: 10 mg Documented by: Sodium Chloride (Normal Saline) 1,000 mls @ 999 mls/hr IV .Bolus ONE Stop: 04/20/20 06:59 Last Admin: 04/20/20 06:10 Dose: 999 mls/hr Documented by: Piperacillin Sod/Tazobactam (Sod 3.375 gm/ Sodium Chloride) 50 mls @ 100 mls/hr IV ONETIME ONE Stop: 04/20/20 07:37 Last Admin: 04/20/20 07:39 Dose: 100 mls/hr Documented by: Sodium Chloride (Normal Saline) 1,000 mls @ 125 mls/hr IV Q8H [facility] Last Admin: 04/21/20 03:28 Dose: 125 mls/hr Documented by: Lisinopril (Prinivil) 20 mg PO ONETIME ONE Stop: 04/20/20 06:39 Last Admin: 04/20/20 06:43 Dose: 20 mg Documented by: Morphine Sulfate (Morphine) 4 mg IVPUSH ONETIME ONE Stop: 04/20/20 06:00 Last Admin: 04/20/20 06:10 Dose: 4 mg Documented by: Ondansetron HCl (Zofran) 4 mg IVPUSH ONETIME ONE Stop: 04/20/20 06:00 Last Admin: 04/20/20 06:10 Dose: 4 mg Documented by: - Exam General: Alert, Cooperative Lungs: Clear to Auscultation, Normal Respiratory Effort Cardiovascular: Regular Rate, Regular Rhythm GI/Abdominal Exam: Soft, Non-Tender, No Distention Extremities: Non-Tender, No Pedal Edema Skin: Warm, Dry, Intact Sepsis Event Note - Evaluation Sepsis Screening Result: No Definite Risk - Focused Exam Vital Signs: Vital Signs Temp Pulse Resp BP Pulse Ox Pulse Ox 04/23/20 09:02 95 04/23/20 07:50 36.6 C 61 16 173/67 H 95 04/23/20 04:00 36.6 C 65 18 164/61 H 92 L 04/22/20 23:31 37.3 C 71 19 174/64 H 95 - Problem List Review Problem List Initiated/Reviewed/Updated: Yes - My Orders Last 24 Hours: My Active Orders 04/23/20 Lunch Clear Liquid Diet [DIET] 04/24/20 05:11 BASIC METABOLIC PANEL,BMP [CHEM] AM CBC WITH AUTO DIFF [HEME] AM MAGNESIUM [CHEM] AM - Plan Plan:: This 84 year old female admitted acute small bowel diverticulitis 1. Acute small bowel diverticulitis with microperforation - advance to clears - LR 100 mls/hr - Zosyn 3.725 mg IV Q6hr - C.diff positive started PO vancomycin - Dr Maldonado, General surgery on board 2. HTN: - Labetalol PRN ordered - will continue home medications 3. DM Type 2 - BS check TID - Novolog SSI VTE prophylaxis: Heparin Dispo: 2-3 days,
[2020-04-23] MEDS: Lisinopril 10 MG Tab PO SCH (09:38)
[2020-04-23] MEDS: amLODIPine 5 MG Tab PO SCH (09:41)
[2020-04-23] MEDS: Labetalol 100 MG/20 ML MDV IVPUSH PRN (10:47)
[2020-04-23] MEDS: Pantoprazole 40 MG in Sodium Chloride 0.9% 10 ML IV SCH (18:15)
[2020-04-23] MEDS: Acetaminophen 325 MG Tab PO PRN (20:13)
[2020-04-24] MEDS: Vancomycin 25 MG/ML Compounding Kit PO SCH ×3 (00:36→12:22)
[2020-04-24] MEDS: Piperacillin/Tazobactam 2.25 GM in Sodium Chloride 0.9% 50 ML IV SCH ×3 (00:36→16:07)
[2020-04-24] MEDS: Heparin Sodium 5,000 Units/ML Vial SUBCUT SCH ×2 (00:40→12:23)
[2020-04-24 07:01] LABS: CARBON DIOXIDE,CO2 23.8 mmol/L (21.0-32.0); POTASSIUM,K 3.2 mmol/L (3.5-5.1)
[2020-04-24] MEDS: Levothyroxine 112 MCG Tab PO SCH (07:52)
[2020-04-24] MEDS: Insulin Aspart 100 Units/ML 3 ML Pen SUBCUT SCH ×2 (07:55→12:23)
[2020-04-24] MEDS: Acetaminophen 325 MG Tab PO PRN (09:23)
[2020-04-24] MEDS: Lisinopril 10 MG Tab PO SCH (09:25)
[2020-04-24] MEDS: amLODIPine 5 MG Tab PO SCH (09:25)
[2020-04-24] MEDS ORDERED: Potassium Chloride 20 MEQ Tab.ER PO ONE (10:19)
[2020-04-24 11:36] VITALS: BP 176/66; PULSE 62
--- NOTE | 2020-04-24 12:01 | PCM.DCSUM1 ---
Discharge Summary - Discharge Data Discharge Date: 04/24/20 Discharge Disposition: Home, Self-Care 01 Condition: Stable - Referral to Home Health Primary Care Physician: Judson Fulton MD - Patient Summary/Data Consults: Consultations 04/20/20 11:58 Consult to Physician [CONS] Urgent Hospital Course: This 84 year old female with pmh of HTN and DM type 2 who was admitted for actue diverticulitis. She presented to the ED with complaints of abdominal pain and nausea x 1 day. In the ED leukocytosis noted at 12,540 platelets 252, Cl 109, Bicarb 17 [address] abd/pelvis reveals diverticulitis with small collection measuring about 1.7 cm in the deep central pelvis with small amount of localized extraluminal air in this area. She was treated with bowel rest, IV fluids, and Zosyn. Oral vancomycin was added when her C.diff studies were positive for antigen and toxin. She did have improvement in her abdominal pain and was started on an oral diet which she tolerated. Today she is requesting discharge home. Dr. Maldonado from General Surgery was consulted and recommended follow up with him in clinic and 3-4 weeks of antibiotics. With her Clostridium difficile long durations of antibiotics put her at greater risk of treatment failure. Patient was discharged home today with oral Bactrim, Flagyl for her diverticulitis and oral Vancomycin for C.diff infection. She is to follow up with Dr. Fulton and Dr. Maldonado. regarding resolution of infection and continued need of antibiotic therapy. - Patient Instructions Diet: Regular Diet as Tolerated Activity: As Tolerated - Discharge Plan Prescriptions/Med Rec: Sulfamethoxazole/Trimethoprim [Bactrim Ds Tablet] 1 each PO BID #24 tablet metroNIDAZOLE [Flagyl] 500 mg PO Q8H #42 tab Vancomycin [Vancocin 125 MG Capsule] 125 mg PO Q6H #40 capsule Home Medications: Home Meds Aspirin [Halfprin] 81 mg PO BRK 01/21/15 [History] Levothyroxine Sodium [Synthroid] 112 mcg PO ACBRK 01/21/15 [History] Lisinopril 20 mg PO DAILY 01/21/15 [History] amLODIPine Besylate [Amlodipine Besylate] 10 mg PO DAILY 01/21/15 [History] Calcium Carbonate [Tums] 1 tab.chew PO ASDIRECTED PRN 03/07/17 [History] Sulfamethoxazole/Trimethoprim [Bactrim Ds Tablet] 1 each PO BID #24 tablet 04/24/20 [Rx] Vancomycin [Vancocin 125 MG Capsule] 125 mg PO Q6H #40 capsule 04/24/20 [Rx] metroNIDAZOLE [Flagyl] 500 mg PO Q8H #42 tab 04/24/20 [Rx] Referrals: Judson Fulton MD [Primary Care Provider] - 05/03/20 2:45 pm (Please arrive 15 minutes early with your identification, insurance cards and your own facemask.) Tito Maldonado MD [Physician] - 06/28/20 9:00 am - Discharge Summary/Plan Comment DC Time >30 min.: No - Patient Data Vitals - Most Recent: Last Vital Signs Temp 36.6 C 04/24/20 11:36 Pulse 62 04/24/20 11:36 Resp 14 04/24/20 11:36 BP 176/66 H 04/24/20 11:36 Pulse Ox 97 04/24/20 11:36 Weight - Most Recent: 58.967 kg I&O - Last 24 hours: Intake & Output 04/23/20 04/24/20 04/24/20 22:59 06:59 14:59 Intake Total 680 450 Output Total 1400 1250 Balance -720 -800 Lab Results - Last 24 hrs: Laboratory Results - last 24 hr 04/23/20 04/23/20 04/23/20 Range/Units 13:03 18:13 18:50 WBC (4.0-11.0) K/uL RBC (4.30-5.90) M/uL Hgb (12.0-16.0) g/dL Hct (36.0-46.0) % MCV (80.0-98.0) fL MCH (27.0-32.0) pg MCHC (31.0-37.0) g/dL RDW Std Deviation (28.0-62.0) fl RDW Coeff of Candido (11.0-15.0) % Plt Count (150-400) K/uL MPV (7.40-12.00) fL Neut % (Auto) (48.0-80.0) % Lymph % (Auto) (16.0-40.0) % Beaver % (Auto) (0.0-15.0) % Eos % (Auto) (0.0-7.0) % Baso % (Auto) (0.0-1.5) % Neut # (Auto) (1.4-5.7) K/uL Lymph # (Auto) (0.6-2.4) K/uL Beaver # (Auto) (0.0-0.8) K/uL Eos # (Auto) (0.0-0.7) K/uL Baso # (Auto) (0.0-0.1) K/uL Nucleated RBC % /100WBC Nucleated RBCs # K/uL Sodium (136-145) mmol/L Potassium (3.5-5.1) mmol/L Chloride (98-107) mmol/L Carbon Dioxide (21.0-32.0) mmol/L BUN (7.0-18.0) mg/dL Creatinine (0.6-1.0) mg/dL Est Cr Clr Drug Dosing mL/min Estimated GFR (MDRD) ml/min Glucose (74-106) mg/dL POC Glucose 81 64 108 (60-110) mg/dL Calcium (8.5-10.1) mg/dL Magnesium (1.8-2.4) mg/dL 04/23/20 04/24/20 04/24/20 Range/Units 22:24 06:00 06:00 WBC 7.39 (4.0-11.0) K/uL RBC 3.49 L (4.30-5.90) M/uL Hgb 10.1 L (12.0-16.0) g/dL Hct 30.0 L (36.0-46.0) % MCV 86.0 (80.0-98.0) fL MCH 28.9 (27.0-32.0) pg MCHC 33.7 (31.0-37.0) g/dL RDW Std Deviation 41.8 (28.0-62.0) fl RDW Coeff of Candido 13 (11.0-15.0) % Plt Count 262 (150-400) K/uL MPV 9.70 (7.40-12.00) fL Neut % (Auto) 64.5 (48.0-80.0) % Lymph % (Auto) 23.1 (16.0-40.0) % Beaver % (Auto) 10.0 (0.0-15.0) % Eos % (Auto) 2.0 (0.0-7.0) % Baso % (Auto) 0.4 (0.0-1.5) % Neut # (Auto) 4.8 (1.4-5.7) K/uL Lymph # (Auto) 1.7 (0.6-2.4) K/uL Beaver # (Auto) 0.7 (0.0-0.8) K/uL Eos # (Auto) 0.2 (0.0-0.7) K/uL Baso # (Auto) 0.0 (0.0-0.1) K/uL Nucleated RBC % 0.0 /100WBC Nucleated RBCs # 0 K/uL Sodium 141 (136-145) mmol/L Potassium 3.2 L (3.5-5.1) mmol/L Chloride 105 (98-107) mmol/L Carbon Dioxide 23.8 (21.0-32.0) mmol/L BUN 12 (7.0-18.0) mg/dL Creatinine 1.2 H (0.6-1.0) mg/dL Est Cr Clr Drug Dosing 31.21 mL/min Estimated GFR (MDRD) 43.0 ml/min Glucose 91 (74-106) mg/dL POC Glucose 77 (60-110) mg/dL Calcium 7.8 L (8.5-10.1) mg/dL Magnesium 1.1 L (1.8-2.4) mg/dL 04/24/20 04/24/20 Range/Units 07:54 11:38 WBC (4.0-11.0) K/uL RBC (4.30-5.90) M/uL Hgb (12.0-16.0) g/dL Hct (36.0-46.0) % MCV (80.0-98.0) fL MCH (27.0-32.0) pg MCHC (31.0-37.0) g/dL RDW Std Deviation (28.0-62.0) fl RDW Coeff of Candido (11.0-15.0) % Plt Count (150-400) K/uL MPV (7.40-12.00) fL Neut % (Auto) (48.0-80.0) % Lymph % (Auto) (16.0-40.0) % Beaver % (Auto) (0.0-15.0) % Eos % (Auto) (0.0-7.0) % Baso % (Auto) (0.0-1.5) % Neut # (Auto) (1.4-5.7) K/uL Lymph # (Auto) (0.6-2.4) K/uL Beaver # (Auto) (0.0-0.8) K/uL Eos # (Auto) (0.0-0.7) K/uL Baso # (Auto) (0.0-0.1) K/uL Nucleated RBC % /100WBC Nucleated RBCs # K/uL Sodium (136-145) mmol/L Potassium (3.5-5.1) mmol/L Chloride (98-107) mmol/L Carbon Dioxide (21.0-32.0) mmol/L BUN (7.0-18.0) mg/dL Creatinine (0.6-1.0) mg/dL Est Cr Clr Drug Dosing mL/min Estimated GFR (MDRD) ml/min Glucose (74-106) mg/dL POC Glucose 91 119 H (60-110) mg/dL Calcium (8.5-10.1) mg/dL Magnesium (1.8-2.4) mg/dL VICENTE Results - Last 24 hrs: Microbiology 04/22/20 11:15 Stool Culture - Preliminary Stool / Feces Shiga Toxin I & II - Final 04/22/20 11:15 Clostridioides difficile (PCR) - Final Stool / Feces Clostridioides difficile Toxin Assay - Final Med Orders - Current: Current Medications Acetaminophen (Tylenol) 650 mg PO Q4H PRN PRN Reason: Pain Last Admin: 04/24/20 09:23 Dose: 650 mg Documented by: Amlodipine Besylate (Norvasc) 10 mg PO DAILY [facility] Last Admin: 04/24/20 09:25 Dose: 10 mg Documented by: Heparin Sodium (Porcine) (Heparin Sodium) 5,000 units SUBCUT Q12H ANA [facility]ÍA Last Admin: 04/24/20 00:40 Dose: 5,000 units Documented by: Piperacillin Sod/Tazobactam (Sod 2.25 gm/ Sodium Chloride) 50 mls @ 100 mls/hr IV Q6H [facility] Last Admin: 04/24/20 07:52 Dose: 100 mls/hr Documented by: Pantoprazole Sodium 40 mg/ (Sodium Chloride) 10 mls @ 300 mls/hr IV Q24H [facility] Last Admin: 04/23/20 18:15 Dose: Not Given Documented by: Insulin Aspart (Novolog) 0 unit SUBCUT TIDAC [facility]; Protocol Last Admin: 04/24/20 07:55 Dose: Not Given Documented by: Labetalol HCl (Normodyne) 10 mg IVPUSH Q4H PRN PRN Reason: SBP>180 Last Admin: 04/23/20 10:47 Dose: 10 mg Documented by: Levothyroxine Sodium (Levothyroxine) 112 mcg PO ACBRK [facility] Last Admin: 04/24/20 07:52 Dose: 112 mcg Documented by: Lisinopril (Prinivil) 20 mg PO DAILY [facility] Last Admin: 04/24/20 09:25 Dose: 20 mg Documented by: Morphine Sulfate (Morphine) 2 mg IVPUSH Q4H PRN PRN Reason: Pain (severe 7-10) Last Admin: 04/21/20 20:20 Dose: 2 mg Documented by: Ondansetron HCl (Zofran) 4 mg IVPUSH Q4H PRN PRN Reason: Nausea Sodium Chloride (Saline Flush) 10 ml FLUSH ASDIRECTED PRN PRN Reason: Keep Vein Open Last Admin: 04/20/20 07:40 Dose: 10 ml Documented by: Sodium Chloride (Saline Flush) 2.5 ml FLUSH ASDIRECTED PRN PRN Reason: Keep Vein Open Last Admin: 04/20/20 07:40 Dose: 2.5 ml Documented by: Vancomycin HCl (First-Vancomycin 25 Compounding Kit) 125 mg PO Q6H [facility] Last Admin: 04/24/20 06:45 Dose: 5 ml Documented by: Discontinued Medications Amlodipine Besylate (Norvasc) 10 mg PO ONETIME ONE Stop: 04/20/20 06:39 Last Admin: 04/20/20 06:49 Dose: 10 mg Documented by: Sodium Chloride (Normal Saline) 1,000 mls @ 999 mls/hr IV .Bolus ONE Stop: 04/20/20 06:59 Last Admin: 04/20/20 06:10 Dose: 999 mls/hr Documented by: Piperacillin Sod/Tazobactam (Sod 3.375 gm/ Sodium Chloride) 50 mls @ 100 mls/hr IV ONETIME ONE Stop: 04/20/20 07:37 Last Admin: 04/20/20 07:39 Dose: 100 mls/hr Documented by: Sodium Chloride (Normal Saline) 1,000 mls @ 125 mls/hr IV Q8H [facility] Last Admin: 04/21/20 03:28 Dose: 125 mls/hr Documented by: Lactated Ringer's (Ringers, Lactated) 1,000 mls @ 100 mls/hr IV Q10H [facility] Last Admin: 04/23/20 22:18 Dose: Not Given Documented by: Insulin Aspart (Novolog) 0 unit SUBCUT Q6H [facility]; Protocol Last Admin: 04/23/20 06:12 Dose: Not Given Documented by: Lisinopril (Prinivil) 20 mg PO ONETIME ONE Stop: 04/20/20 06:39 Last Admin: 04/20/20 06:43 Dose: 20 mg Documented by: Morphine Sulfate (Morphine) 4 mg IVPUSH ONETIME ONE Stop: 04/20/20 06:00 Last Admin: 04/20/20 06:10 Dose: 4 mg Documented by: Ondansetron HCl (Zofran) 4 mg IVPUSH ONETIME ONE Stop: 04/20/20 06:00 Last Admin: 04/20/20 06:10 Dose: 4 mg Documented by: Potassium Chloride (Klor-Con M20) 40 meq PO ONETIME ONE Stop: 04/24/20 10:20
[2020-04-24] MEDS: Pantoprazole 40 MG in Sodium Chloride 0.9% 10 ML IV SCH (12:20)
== END 2020-04-24 12:30 | disposition home or self-care (01) | DRG 392 ==
LOC: MW.ED 05:33 → MW.MS 07:09 → OBSVTOIN 09:46 → MW.MS 10:45
PROVIDERS: ADMIT Student in an Organized Health Care Education/Training Program; ATTEND Student in an Organized Health Care Education/Training Program
DX: K57.00 Diverticulitis of small intestine with perforation and abscess without bleeding (principal); I10 Essential (primary) hypertension; K21.9 Gastro-esophageal reflux disease without esophagitis; H54.7 Unspecified visual loss; H91.93 Unspecified hearing loss, bilateral; F41.9 Anxiety disorder, unspecified; Z86.11 Personal history of tuberculosis; E11.9 Type 2 diabetes mellitus without complications; E03.9 Hypothyroidism, unspecified; Z20.828 Contact with and (suspected) exposure to other viral communicable diseases; B96.89 Other specified bacterial agents as the cause of diseases classified elsewhere; Z88.6 Allergy status to analgesic agent; Z88.8 Allergy status to other drugs, medicaments and biological substances; Z79.82 Long term (current) use of aspirin; Z79.890 Hormone replacement therapy; Z79.899 Other long term (current) drug therapy; Z87.891 Personal history of nicotine dependence; Z90.49 Acquired absence of other specified parts of digestive tract; Z98.49 Cataract extraction status, unspecified eye
CPT/HCPCS: 36415; 74176; 80053; 81001; 83690; 85025; 93005; 96361; 96374; 96375; 99285; A9270 ×2; J2270; J2405; J2543; J7030; J7050; U0002; 80048; 82272; 82962; 83735; 87045; 87046; 87324; 87449; 87493; 87899; C9113; J1644; J3490; J7120

== ENCOUNTER 2020-04-27 15:22 | Emergency (ER) | payer MEDICARE ==
--- NOTE | 2020-04-27 15:28 | EDM.PDOC ---
ED HPI GENERAL MEDICAL PROBLEM - General Stated Complaint: DIZZINESS Time Seen by Provider: 04/27/20 15:27 Source of Information: Reports: Patient History Limitations: Reports: No Limitations - History of Present Illness INITIAL COMMENTS - FREE TEXT/NARRATIVE: PMHx DM2, HTN, recent admit for diverticulitis and C.diff currently on bactrim/flagyl/vancomycin presents for ADAMS. Patient notes her diarrhea is improving. ADAMS is diffuse since this morning. Waxing/waning. No thunderclap onset. No vision changes. Bright light makes it worse. Mild dizziness "only when I stand". No CP, SOB, fevers. - Related Data Allergies Allergy/AdvReac Type Severity Reaction Status Date / Time tramadol Allergy Headache Verified 04/27/20 15:44 Home Meds: Home Meds Aspirin [Halfprin] 81 mg PO BRK 01/21/15 [History] Levothyroxine Sodium [Synthroid] 112 mcg PO ACBRK 01/21/15 [History] Lisinopril 20 mg PO DAILY 01/21/15 [History] amLODIPine Besylate [Amlodipine Besylate] 10 mg PO DAILY 01/21/15 [History] Calcium Carbonate [Tums] 1 tab.chew PO ASDIRECTED PRN 10/03/16 [History] Sulfamethoxazole/Trimethoprim [Bactrim Ds Tablet] 1 each PO BID #24 tablet 04/24/20 [Rx] Vancomycin [Vancocin 125 MG Capsule] 125 mg PO Q6H #40 capsule 04/24/20 [Rx] metroNIDAZOLE [Flagyl] 500 mg PO Q8H #42 tab 04/24/20 [Rx] Past Medical History HEENT History: Reports: Hard of Hearing, Impaired Vision Other HEENT History: wears glasses, top denture, bottom partial, armani hearing aids Cardiovascular History: Reports: Hypertension. Denies: Afib, CAD Respiratory History: Reports: TB Gastrointestinal History: Reports: GERD, GI Bleed Other Gastrointestinal History: Heartburn/GERD, gastritis Genitourinary History: Reports: Other (See Below) Other Genitourinary History: recent hospitalization for acute kidney injury [employer] History: Reports: Musculoskeletal History: Reports: Fracture Other Musculoskeletal History: hx: fractured Wrist, Low and Mid back pain at times Neurological History: Reports: Migraines Other Neuro History: Past hx: Migraines, some headaches Other Psychiatric History: Anxiety with riding car Long trips Endocrine/Metabolic History: Reports: Diabetes, Type II, Hypothyroidism Other Endocrine/Metabolic History: Hypothyroidism - Infectious Disease History Infectious Disease History: Reports: Chicken Pox, Measles - Past Surgical History Head Surgeries/Procedures: Reports: None HEENT Surgical History: Reports: Cataract Surgery Other Musculoskeletal Surgeries/Procedures:: surgery for fx patella Social & Family History - Family History Family Medical History: Noncontributory HEENT: Reports: Impaired Vision Cardiac: Reports: CAD, NM OBGYN: Reports: Endocrine/Metabolic: Reports: Diabetes, type II - Caffeine Use Caffeine Use: Reports: Coffee, Soda, Tea - Living Situation & Occupation Living situation: Reports: with Family Occupation: Retired ED ROS GENERAL - Review of Systems Review Of Systems: Comprehensive ROS is negative, except as noted in HPI. ED EXAM, GENERAL - Physical Exam Exam: See Below Exam Limited By: No Limitations General Appearance: Alert, WD/WN, No Apparent Distress Eye Exam: Bilateral Eye: EOMI, PERRL Ears: Normal External Exam Nose: Normal Inspection Throat/Mouth: Normal Inspection, Normal Voice, No Airway Compromise Head: Atraumatic, Normocephalic Neck: Normal Inspection Respiratory/Chest: No Respiratory Distress, Lungs Clear, Normal Breath Sounds, No Accessory Muscle Use Cardiovascular: Normal Peripheral Pulses, Regular Rate, Rhythm GI/Abdominal: Soft, Non-Tender, No Distention Extremities: Normal Inspection Neurological: Alert, CN II-XII Intact, Normal Cognition, Normal Gait, No Motor/Sensory Deficits Psychiatric: Normal Affect, Normal Mood Skin Exam: Warm, Dry, Intact EKG INTERPRETATION EKG Date: 04/27/20 Time: 15:50 Rhythm: NSR Rate (Beats/Min): 55 Rose: Normal P-Wave: Present QRS: Normal ST-T: Normal QT: Normal UT/PQ Interval: 130 Course - Vital Signs Last Recorded V/S: Last Vital Signs Temp 96.5 F L 04/27/20 15:39 Pulse 63 04/27/20 16:15 Resp 16 04/27/20 15:39 BP 166/70 H 04/27/20 17:13 Pulse Ox 97 04/27/20 17:13 - Orders/Labs/Meds Orders: Active Orders 24 hr Category Date Time Status Cardiac Monitoring [RC] . DIRECTED Care 04/27/20 15:35 Active EKG Documentation Completion [RC] STAT Care 04/27/20 15:35 Active Pulse Oximetry [RC] ASDIRECTED Care 04/27/20 15:35 Active Magnesium Sulfate/Water [Magnesium Sulfate in Water Med 04/27/20 16:49 Active Premix] 2 gm Premix Bag 1 bag IV ONETIME Potassium Chloride Riders [KCL 20 MEQ in Water 50 ML] Med 04/27/20 16:48 Active 20 meq Premix Bag 1 bag IV ONETIME Sodium Chloride 0.9% [Normal Saline] 1,000 ml Med 04/27/20 17:00 Active IV ASDIRECTED Sodium Chloride 0.9% [Normal Saline] 500 ml Med 04/27/20 16:00 Active IV .BOLUS Sodium Chloride 0.9% [Saline Flush] Med 04/27/20 15:35 Active 10 ml FLUSH ASDIRECTED PRN Sodium Chloride 0.9% [Saline Flush] Med 04/27/20 15:35 Active 2.5 ml FLUSH ASDIRECTED PRN Saline Lock Insert [OM.PC] Stat Oth 04/27/20 15:35 Ordered Medication Orders Sodium Chloride (Normal Saline) 500 mls @ 999 mls/hr IV .BOLUS ANA MARÍA Last Admin: 04/27/20 16:03 Dose: 999 mls/hr Documented by: NASRIN Potassium Chloride 20 meq/ (Premix) 50 mls @ 25 mls/hr IV ONETIME ONE Stop: 04/27/20 18:47 Last Admin: 04/27/20 16:59 Dose: 25 mls/hr Documented by: NASRIN Magnesium Sulfate 2 gm/ Premix 50 mls @ 50 mls/hr IV ONETIME ONE Stop: 04/27/20 17:48 Last Admin: 04/27/20 16:59 Dose: 50 mls/hr Documented by: NASRIN Sodium Chloride (Normal Saline) 1,000 mls @ 125 mls/hr IV ASDIRECTED ANA MARÍA Last Admin: 04/27/20 16:59 Dose: 125 mls/hr Documented by: NASRIN Sodium Chloride (Saline Flush) 10 ml FLUSH ASDIRECTED PRN PRN Reason: Keep Vein Open Last Admin: 04/27/20 16:03 Dose: 10 ml Documented by: NASRIN Sodium Chloride (Saline Flush) 2.5 ml FLUSH ASDIRECTED PRN PRN Reason: Keep Vein Open Last Admin: 04/27/20 16:03 Dose: 2.5 ml Documented by: NASRIN Labs: Laboratory Tests 04/27/20 04/27/20 04/27/20 Range/Units 15:57 15:57 15:57 WBC 7.22 (4.0-11.0) K/uL RBC 3.72 L (4.30-5.90) M/uL Hgb 10.7 L (12.0-16.0) g/dL Hct 31.2 L (36.0-46.0) % MCV 83.9 (80.0-98.0) fL MCH 28.8 (27.0-32.0) pg MCHC 34.3 (31.0-37.0) g/dL RDW Std Deviation 41.7 (28.0-62.0) fl RDW Coeff of Candido 14 (11.0-15.0) % Plt Count 342 (150-400) K/uL MPV 9.10 (7.40-12.00) fL Neut % (Auto) 65.2 (48.0-80.0) % Lymph % (Auto) 28.5 (16.0-40.0) % Faulk % (Auto) 4.8 (0.0-15.0) % Eos % (Auto) 1.2 (0.0-7.0) % Baso % (Auto) 0.3 (0.0-1.5) % Neut # (Auto) 4.7 (1.4-5.7) K/uL Lymph # (Auto) 2.1 (0.6-2.4) K/uL Faulk # (Auto) 0.4 (0.0-0.8) K/uL Eos # (Auto) 0.1 (0.0-0.7) K/uL Baso # (Auto) 0.0 (0.0-0.1) K/uL Nucleated RBC % 0.0 /100WBC Nucleated RBCs # 0 K/uL Lactate 1.0 (0.20-2.00) mmol/L Sodium 138 (136-145) mmol/L Potassium 2.8 L (3.5-5.1) mmol/L Chloride 104 (98-107) mmol/L Carbon Dioxide 20.0 L (21.0-32.0) mmol/L BUN 11 (7.0-18.0) mg/dL Creatinine 1.7 H (0.6-1.0) mg/dL Est Cr Clr Drug Dosing 20.18 mL/min Estimated GFR (MDRD) 28.8 ml/min Glucose 121 H (74-106) mg/dL Calcium 7.7 L (8.5-10.1) mg/dL Magnesium 1.1 L (1.8-2.4) mg/dL Total Bilirubin 0.2 (0.2-1.0) mg/dL AST 23 (15-37) IU/L ALT 23 (14-63) IU/L Alkaline Phosphatase 67 (46-116) U/L Troponin I < 0.050 (0.000-0.056) ng/mL B-Natriuretic Peptide (<100) PG/ML Total Protein 7.8 (6.4-8.2) g/dL Albumin 3.2 L (3.4-5.0) g/dL Globulin 4.6 H (2.6-4.0) g/dL Albumin/Globulin Ratio 0.7 L (0.9-1.6) Lipase 165 (73-393) U/L Urine Color Urine Appearance Urine pH (5.0-8.0) Ur Specific [place] (1.001-1.035) Urine Protein (NEGATIVE) mg/dL Urine Glucose (UA) (NEGATIVE) mg/dL Urine Ketones (NEGATIVE) mg/dL Urine Occult Blood (NEGATIVE) Urine Nitrite (NEGATIVE) Urine Bilirubin (NEGATIVE) Urine Urobilinogen (<2.0) EU/dL Ur Leukocyte Esterase (NEGATIVE) Urine RBC (0-2/HPF) Urine WBC (0-5/HPF) Ur Epithelial Cells (NONE-FEW) Urine Bacteria (NEGATIVE) 04/27/20 04/27/20 Range/Units 15:57 16:32 WBC (4.0-11.0) K/uL RBC (4.30-5.90) M/uL Hgb (12.0-16.0) g/dL Hct (36.0-46.0) % MCV (80.0-98.0) fL MCH (27.0-32.0) pg MCHC (31.0-37.0) g/dL RDW Std Deviation (28.0-62.0) fl RDW Coeff of Candido (11.0-15.0) % Plt Count (150-400) K/uL MPV (7.40-12.00) fL Neut % (Auto) (48.0-80.0) % Lymph % (Auto) (16.0-40.0) % Faulk % (Auto) (0.0-15.0) % Eos % (Auto) (0.0-7.0) % Baso % (Auto) (0.0-1.5) % Neut # (Auto) (1.4-5.7) K/uL Lymph # (Auto) (0.6-2.4) K/uL Faulk # (Auto) (0.0-0.8) K/uL Eos # (Auto) (0.0-0.7) K/uL Baso # (Auto) (0.0-0.1) K/uL Nucleated RBC % /100WBC Nucleated RBCs # K/uL Lactate (0.20-2.00) mmol/L Sodium (136-145) mmol/L Potassium (3.5-5.1) mmol/L Chloride (98-107) mmol/L Carbon Dioxide (21.0-32.0) mmol/L BUN (7.0-18.0) mg/dL Creatinine (0.6-1.0) mg/dL Est Cr Clr Drug Dosing mL/min Estimated GFR (MDRD) ml/min Glucose (74-106) mg/dL Calcium (8.5-10.1) mg/dL Magnesium (1.8-2.4) mg/dL Total Bilirubin (0.2-1.0) mg/dL AST (15-37) IU/L ALT (14-63) IU/L Alkaline Phosphatase (46-116) U/L Troponin I (0.000-0.056) ng/mL B-Natriuretic Peptide 72 (<100) PG/ML Total Protein (6.4-8.2) g/dL Albumin (3.4-5.0) g/dL Globulin (2.6-4.0) g/dL Albumin/Globulin Ratio (0.9-1.6) Lipase (73-393) U/L Urine Color YELLOW Urine Appearance CLEAR Urine pH 6.0 (5.0-8.0) Ur Specific [place] 1.025 (1.001-1.035) Urine Protein 100 H (NEGATIVE) mg/dL Urine Glucose (UA) NEGATIVE (NEGATIVE) mg/dL Urine Ketones NEGATIVE (NEGATIVE) mg/dL Urine Occult Blood TRACE-INTACT H (NEGATIVE) Urine Nitrite NEGATIVE (NEGATIVE) Urine Bilirubin NEGATIVE (NEGATIVE) Urine Urobilinogen 0.2 (<2.0) EU/dL Ur Leukocyte Esterase NEGATIVE (NEGATIVE) Urine RBC 0-1 (0-2/HPF) Urine WBC 1-2 (0-5/HPF) Ur Epithelial Cells FEW (NONE-FEW) Urine Bacteria FEW (NEGATIVE) Meds: Medications Generic Name Dose Route Start Last Admin Trade Name Freq PRN Reason Stop Dose Admin Sodium Chloride 500 mls @ 999 mls/hr 04/27/20 16:00 04/27/20 16:03 Normal Saline IV 999 mls/hr .BOLUS ANAM ARÍA Administration Potassium Chloride 20 meq/ 50 mls @ 25 mls/hr 04/27/20 16:48 04/27/20 16:59 Premix IV 04/27/20 18:47 25 mls/hr ONETIME ONE Administration Magnesium Sulfate 2 gm/ Premix 50 mls @ 50 mls/hr 04/27/20 16:49 04/27/20 16:59 IV 04/27/20 17:48 50 mls/hr ONETIME ONE Administration Sodium Chloride 1,000 mls @ 125 mls/hr 04/27/20 17:00 04/27/20 16:59 Normal Saline IV 125 mls/hr ASDIRECTED ANA MARÍA Administration Sodium Chloride 10 ml 04/27/20 15:35 04/27/20 16:03 Saline Flush FLUSH 10 ml ASDIRECTED PRN Administration Keep Vein Open Sodium Chloride 2.5 ml 04/27/20 15:35 04/27/20 16:03 Saline Flush FLUSH 2.5 ml ASDIRECTED PRN Administration Keep Vein Open Discontinued Medications Generic Name Dose Route Start Last Admin Trade Name Freq PRN Reason Stop Dose Admin Acetaminophen 1,000 mg 04/27/20 15:44 04/27/20 16:02 Tylenol Extra Strength PO 04/27/20 15:45 1,000 mg ONETIME ONE Administration Diphenhydramine HCl 25 mg 04/27/20 15:44 09/29/20 16:01 Benadryl IVPUSH 04/27/20 15:45 25 mg ONETIME ONE Administration Ketorolac Tromethamine 15 mg 04/27/20 15:44 04/27/20 16:00 Toradol IVPUSH 04/27/20 15:45 15 mg ONETIME ONE Administration Metoclopramide HCl 5 mg 04/27/20 15:44 04/27/20 16:00 Reglan IVPUSH 04/27/20 15:45 5 mg ONETIME ONE Administration Potassium Chloride 40 meq 04/27/20 16:47 04/27/20 16:58 Potassium Chloride PO 04/27/20 16:48 40 meq ONETIME ONE Administration - Re-Assessments/Exams Free Text/Narrative Re-Assessment/Exam: 04/27/20 15:51 Low suspicion serious intracranial pathology. Will get labs, treat symptomatically. 04/27/20 16:49 Labs remarkable for hypokalemia and hypomagnesemia; not unsurprising in setting of known C. diff infection. Will replete electrolytes. ADAMS is improved. 04/27/20 16:59 UA unremarkable. Will continue electrolyte repletement and anticipate d/c home 04/27/20 17:42 Paitent's ADAMS resolved. Spoke with patient regarding increasing PO potassium intake. Recommend f/u with PMD for repeat labs Departure - Departure Time of Disposition: 17:42 Disposition: Home, Self-Care 01 Condition: Good Clinical Impression: Hypokalemia, Hypomagnesemia, Dehydration Headache Qualifiers: Headache type: other headache syndrome Qualified Code(s): G44.89 - Other headache syndrome - Discharge Information Instructions: Hypomagnesemia, Hypokalemia Referrals: Judson Fulton MD [Primary Care Provider] - Additional Instructions: The following information is given to patients seen in the emergency department who are being discharged to home. This information is to outline your options for follow-up care. We provide all patients seen in our emergency department with a follow-up referral. The need for follow-up, as well as the timing and circumstances, are variable depending upon the specifics of your emergency department visit. If you don't have a primary care physician on staff, we will provide you with a referral. We always advise you to contact your personal physician following an emergency department visit to inform them of the circumstance of the visit and for follow-up with them and/or the need for any referrals to a consulting specialist. The emergency department will also refer you to a specialist when appropriate. This referral assures that you have the opportunity for follow-up care with a specialist. All of these measure are taken in an effort to provide you with optimal care, which includes your follow-up. Under all circumstances we always encourage you to contact your private physician who remains a resource for coordinating your care. When calling for follow-up care, please make the office aware that this follow-up is from your recent emergency room visit. If for any reason you are refused follow-up, please contact the [facility] Emergency Department at and asked to speak to the emergency department charge nurse. Please follow up with your primary care physician. If you do not have a primary care physician, see below: [facility] [address] [place] [id number] [facility] [address] [place] [id number] Sepsis Event Note (ED) - Focused Exam Vital Signs: Vital Signs Temp Pulse Resp BP Pulse Ox 04/27/20 17:13 166/70 H 97 04/27/20 16:15 63 184/65 H 04/27/20 15:39 96.5 F L 64 16 178/52 H 96 - My Orders Last 24 Hours: My Active Orders 04/27/20 15:35 Cardiac Monitoring [RC] . DIRECTED EKG Documentation Completion [RC] STAT Pulse Oximetry [RC] ASDIRECTED Sodium Chloride 0.9% [Saline Flush] 10 ml FLUSH ASDIRECTED PRN Sodium Chloride 0.9% [Saline Flush] 2.5 ml FLUSH ASDIRECTED PRN Saline Lock Insert [OM.PC] Stat 04/27/20 16:00 Sodium Chloride 0.9% [Normal Saline] 500 ml IV .BOLUS 04/27/20 16:48 Potassium Chloride Riders [KCL 20 MEQ in Water 50 ML] 20 meq Premix Bag 1 bag IV ONETIME 04/27/20 16:49 Magnesium Sulfate/Water [Magnesium Sulfate in Water Premix] 2 gm Premix Bag 1 bag IV ONETIME 04/27/20 17:00 Sodium Chloride 0.9% [Normal Saline] 1,000 ml IV ASDIRECTED - Assessment/Plan Last 24 Hours: My Active Orders 04/27/20 15:35 Cardiac Monitoring [RC] . DIRECTED EKG Documentation Completion [RC] STAT Pulse Oximetry [RC] ASDIRECTED Sodium Chloride 0.9% [Saline Flush] 10 ml FLUSH ASDIRECTED PRN Sodium Chloride 0.9% [Saline Flush] 2.5 ml FLUSH ASDIRECTED PRN Saline Lock Insert [OM.PC] Stat 04/27/20 16:00 Sodium Chloride 0.9% [Normal Saline] 500 ml IV .BOLUS 04/27/20 16:48 Potassium Chloride Riders [KCL 20 MEQ in Water 50 ML] 20 meq Premix Bag 1 bag IV ONETIME 04/27/20 16:49 Magnesium Sulfate/Water [Magnesium Sulfate in Water Premix] 2 gm Premix Bag 1 bag IV ONETIME 04/27/20 17:00 Sodium Chloride 0.9% [Normal Saline] 1,000 ml IV ASDIRECTED
[2020-04-27] MEDS ORDERED: Sodium Chloride 0.9% 10 ML Syringe FLUSH PRN (15:35)
[2020-04-27] MEDS ORDERED: Sodium Chloride 0.9% 2.5 ML Syringe FLUSH PRN (15:35)
[2020-04-27] MEDS ORDERED: Ketorolac 30 MG/ML SDV IVPUSH ONE (15:44)
[2020-04-27] MEDS ORDERED: Acetaminophen 500 MG Tab PO ONE (15:44)
[2020-04-27] MEDS ORDERED: diphenhydrAMINE 50 MG/ML SDV IVPUSH ONE (15:44)
[2020-04-27] MEDS ORDERED: Metoclopramide 10 MG/2 ML SDV IVPUSH ONE (15:44)
[2020-04-27] MEDS ORDERED: Sodium Chloride 0.9% 10 ML SDV IV ONE (15:46)
[2020-04-27] MEDS ORDERED: Sodium Chloride 0.9% 500 ML IV SCH (16:00)
--- NOTE | 2020-04-27 16:01 | CR ---
Chest: Portable view of the chest was obtained. Comparison: Prior chest x-ray of 08/28/19. Heart is enlarged. Tortuous thoracic aorta is seen. Lungs are clear with no acute parenchymal change. Degenerative change is noted within both shoulders with findings suspicious for chronic rotator cuff tears. Impression: 1. Findings as noted above. 2. Nothing acute is otherwise seen. Diagnostic code #2 This report was dictated in MDT
[2020-04-27 16:35] LABS: BLOOD UREA NITROGEN,BUN 11 mg/dL (7.0-18.0); CHLORIDE,CL 104 mmol/L (98-107); GLUCOSE RANDOM 121 mg/dL (74-106); LIPASE 165 U/L (73-393); POTASSIUM,K 2.8 mmol/L (3.5-5.1); SODIUM,NA 138 mmol/L (136-145)
[2020-04-27] MEDS ORDERED: Potassium Chloride 10% 20 MEQ/15 ML Soln 30 ML UD Cup PO ONE (16:47)
[2020-04-27] MEDS ORDERED: Potassium Chloride Riders 20 MEQ in Premix Bag 1 BAG IV ONE (16:48)
[2020-04-27] MEDS ORDERED: Magnesium Sulfate/Water 2 GM in Premix Bag 1 BAG IV ONE (16:49)
[2020-04-27] MEDS ORDERED: Sodium Chloride 0.9% 1,000 ML IV SCH (17:00)
[2020-04-27 19:04] VITALS: BP 168/63; PULSE 61
== END 2020-04-27 19:03 | disposition home or self-care (01) ==
LOC: MW.ED 15:22
DX: G44.89 Other headache syndrome (principal); E86.0 Dehydration; E87.6 Hypokalemia; E83.42 Hypomagnesemia; I10 Essential (primary) hypertension; E11.9 Type 2 diabetes mellitus without complications; E03.9 Hypothyroidism, unspecified; Z88.5 Allergy status to narcotic agent; Z79.82 Long term (current) use of aspirin; Z79.899 Other long term (current) drug therapy
CPT/HCPCS: 36415; 71045; 80053; 81001; 83605; 83690; 83735; 83880; 84484; 85025; 93005; 96365; 96366; 96368; 96375; 99284; A9270; J1200; J1885; J2765; J3475; J3480; J7030; J7040

== ENCOUNTER 2020-07-27 16:29 | Emergency (ER) | payer MEDICARE ==
[2020-07-27] MEDS ORDERED: Sodium Chloride 0.9% 10 ML Syringe FLUSH PRN (17:21)
[2020-07-27] MEDS ORDERED: Sodium Chloride 0.9% 2.5 ML Syringe FLUSH PRN (17:21)
[2020-07-27] MEDS ORDERED: Acetaminophen 500 MG Tab PO ONE (17:22)
[2020-07-27] MEDS ORDERED: Metoclopramide 10 MG/2 ML SDV IVPUSH ONE (17:22)
[2020-07-27] MEDS ORDERED: Ibuprofen 400 MG Tab PO ONE (17:22)
--- NOTE | 2020-07-27 18:12 | EDM.PDOC ---
ED HPI GENERAL MEDICAL PROBLEM - General Chief Complaint: Headache Stated Complaint: HEAD COMPLICATIONS Time Seen by Provider: 07/27/20 16:32 Source of Information: Reports: Patient, Old Records History Limitations: Reports: No Limitations - History of Present Illness INITIAL COMMENTS - FREE TEXT/NARRATIVE: This is a very pleasant 85-year-old female with a past medical history of headaches, diverticulitis, renal insufficiency, hypertension, and type 2 diabetes mellitus along with hypothyroidism presenting with headache, lightheadedness, and generalized weakness. She presents to the emergency department complaining of 1 week history of a bilateral frontal headache along with intermittent lightheadedness and generalized weakness. She states that she has had headaches that feels similar to this in the past and location and character. There is no report of any recent fever, head trauma, or neck stiffness. She denies any facial droop, speech changes, visual disturbance, facial or extremity numbness or weakness, or new difficulty ambulating. She complains of generalized weakness but no focal extremity or facial weakness. She complains of feeling somewhat tired and reports occasional intermittent lightheadedness when she tries to stand up. She states that she has not eaten or been drinking very well over the past few days. Denies chills, nausea, vomiting, diarrhea, hematemesis, rectal bleeding, neck stiffness, inability to move the neck, rash, abdominal pain. ROS: A 10-point review of systems was negative, except as noted in the HPI (or in the ROS section of this note). Past medical history: Reviewed, no additional pertinent history. Surgical history: Reviewed in system, no additional pertinent history. Social history: Reviewed in system, no additional pertinent history. Family history: Reviewed in system, no additional pertinent history. PHYSICAL EXAM Vital signs reviewed. Nursing notes reviewed. Constitutional: Awake, alert, non-distressed. Head: Normocephalic, atraumatic. Eyes: Pupils 3 mm bilaterally, EOMI, conjunctiva normal, no discharge, no scleral icterus. Ears, Nose, Throat: External ears and nose normal, moist oral mucosa. TMs and EACs clear bilaterally. Neck: Supple, full range of motion. Cardiovascular: 2+ radial pulse, capillary refill less than 2 seconds. Pulmonary: normal work of breathing, no accessory muscle use. Abdomen/GI: Soft, nontender, nondistended, no guarding or rigidity, no masses. Musculoskeletal: No deformities. Integumentary: Appropriate color for ethnicity, warm, dry, no pallor or jaundice, no rash. Awake, alert, and oriented x3. Cranial nerves II through XII intact. No facial droop or dysarthria. No temporal artery tenderness. Supple neck with normal range of motion. No pronator drift. Normal [id number] and jofg-vr-nzit. 5/5 strength in all extremities. Sensation intact to light touch x4. Normal visual donahue, no field cuts. Able to sit up in bed and ambulate without any new requirement of assistance. Psychiatric: Appropriate mood and affect, normal thought process. This patient was seen and evaluated during the 2019 SARS-CoV-2 novel coronavirus pandemic period. Community viral transmission is ongoing at time of this encounter and the emergency department is operating under pandemic response procedures. Head Pain Score (Numeric/FACES): 5 - Related Data Allergies Allergy/AdvReac Type Severity Reaction Status Date / Time tramadol Allergy Headache Verified 07/27/20 16:37 Home Meds: Home Meds Aspirin [Halfprin] 81 mg PO BRK 01/21/15 [History] Levothyroxine Sodium [Synthroid] 112 mcg PO ACBRK 01/21/15 [History] Lisinopril 20 mg PO DAILY 01/21/15 [History] amLODIPine Besylate [Amlodipine Besylate] 10 mg PO DAILY 01/21/15 [History] Calcium Carbonate [Tums] 1 tab.chew PO ASDIRECTED PRN 10/03/16 [History] Past Medical History HEENT History: Reports: Hard of Hearing, Impaired Vision Other HEENT History: wears glasses, top denture, bottom partial, armani hearing aids Cardiovascular History: Reports: Hypertension Respiratory History: Reports: TB Gastrointestinal History: Reports: GERD, GI Bleed Other Gastrointestinal History: Heartburn/GERD, gastritis Genitourinary History: Reports: Other (See Below) Other Genitourinary History: recent hospitalization for acute kidney injury 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: Musculoskeletal History: Reports: Fracture Other Musculoskeletal History: hx: fractured Wrist, Low and Mid back pain at times Neurological History: Reports: Migraines Other Neuro History: Past hx: Migraines, some headaches Other Psychiatric History: Anxiety with riding car Long trips Endocrine/Metabolic History: Reports: Diabetes, Type II, Hypothyroidism Other Endocrine/Metabolic History: Hypothyroidism - Infectious Disease History Infectious Disease History: Reports: Chicken Pox, Measles, Novel Coronavirus - Past Surgical History Head Surgeries/Procedures: Reports: None HEENT Surgical History: Reports: Cataract Surgery Cardiovascular Surgical History: Reports: None Respiratory Surgical History: Reports: None GI Surgical History: Reports: None Endocrine Surgical History: Reports: None Musculoskeletal Surgical History: Reports: Other (See Below) Other Musculoskeletal Surgeries/Procedures:: surgery for fx patella Social & Family History - Family History Family Medical History: No Pertinent Family History HEENT: Reports: Impaired Vision Cardiac: Reports: CAD, CT OBGYN: Reports: Endocrine/Metabolic: Reports: Diabetes, type II - Tobacco Use Tobacco Use Status *Q: Never Tobacco User - Caffeine Use Caffeine Use: Reports: None - Recreational Drug Use Recreational Drug Use: No - Living Situation & Occupation Living situation: Reports: with Family Occupation: Retired ED ROS GENERAL - Review of Systems Review Of Systems: See Below - Physical Exam Exam: See Below Exam Limited By: No Limitations General Appearance: Alert, WD/WN, No Apparent Distress Ears: Normal External Exam, Normal Canal, Hearing Grossly Normal, Normal TMs Nose: Normal Inspection, Normal Mucosa, No Blood Throat/Mouth: Normal Inspection, Normal Lips, Normal Teeth, Normal Gums, Normal Oropharynx, Normal Voice, No Airway Compromise Head Exam: Atraumatic, Normocephalic Neck: Normal Inspection, Supple, Non-Tender, Full Range of Motion Respiratory/Chest: No Respiratory Distress, Lungs Clear, Normal Breath Sounds, No Accessory Muscle Use, Chest Non-Tender Cardiovascular: Normal Peripheral Pulses, Regular Rate, Rhythm, No Edema, No Gallop, No JVD, No Murmur, No Rub GI/Abdominal: Normal Bowel Sounds, Soft, Non-Tender, No Organomegaly, No Distention, No Abnormal Bruit, No Mass (Female) Exam: Normal External Exam, Normal Speculum Exam, Normal Bimanual Exam Rectal (Female) Exam: Normal Exam, Normal Rectal Tone Neuro Exam (Abbreviated): Alert, Oriented, CN II-XII Intact, Normal Cognition, Normal Gait, Normal Reflexes, No Motor/Sensory Deficits Back Exam: Normal Inspection, Full Range of Motion, NT Extremities: Normal Inspection, Normal Range of Motion, Non-Tender, No Pedal Edema, Normal Capillary Refill Psychiatric: Normal Affect, Normal Mood Skin Exam: Warm, Dry, Intact, Normal Color, No Rash #1 Interpretation EKG Interpretation Comments: 12-Lead ECG Interpretation Acquired: 6:05 PM Rhythm: Sinus bradycardia Rate: 54 bpm Pelican: Normal Intervals: Normal Ectopy: None RV Strain: No obvious RV strain pattern. ST Segments/T-Waves: No notable changes Acute Ischemic Changes: None apparent Interpretation: No STEMI Course - Vital Signs Text/Narrative:: 85-year-old female presenting with subacute bifrontal headache, generalized weakness, lightheadedness. Patient hemodynamically stable, afebrile, well-appearing, looks nontoxic. Differential diagnosis includes but is not limited to: Migraine headache, benign headache, intracranial hemorrhage, subdural hematoma, intraparenchymal hemorrhage, subarachnoid hemorrhage, less likely meningitis or encephalitis, anemia, electrolyte disturbance, thyroid disease, volume depletion, sepsis, medication side effect, acute coronary syndrome, and many others. On arrival mildly hypertensive, afebrile, looks nontoxic. Twelve-lead EKG shows sinus bradycardia, normal intervals, no ectopy or ischemia. IV access established, labs sent off. Labs show slight worsening of normocytic anemia with hemoglobin 9.6, down about one-point from baseline. No leukocytosis, platelet count slightly elevated at 429,000. Metabolic panel shows stable creatinine elevation at 1.8, BUN of 42 which is up from her baseline, possible volume depletion. Sodium 134. Glucose 114. Troponin negative, LFTs are reassuring. TSH is within normal limits. Covid testing is negative. We are going to give her 1 L of lactated Ringer's to help address her elevated BUN and creatinine. Considered a broad etiology for patient's complaints. I suspect that this is a benign headache. Her neurologic examination is nonfocal. Her neck is supple and nontender, she has no fever. I am not suspicious for meningitis or encephalitis at this point. Her head CT is negative. She is mildly anemic, slightly worse from baseline but not to the degree that I would expect would cause the symptoms. No significant electrolyte disturbances. Low suspicion for sepsis or infection at this point. No objective evidence of myocardial ischemia. We did treat her symptomatically with medications for her headache, she felt much better after these therapies. Plan: Given reassuring examination and rather unimpressive work-up, patient is stable to discharge home with outpatient primary care clinic follow-up. Strict emergency department return precautions were provided, patient indicated understanding. All questions were answered prior to departure. Discharged in good condition. Last Recorded V/S: Last Vital Signs Temp 35.4 C L 07/27/20 20:16 Pulse 61 07/27/20 20:16 Resp 17 07/27/20 20:16 BP 174/62 H 07/27/20 20:16 Pulse Ox 99 07/27/20 20:16 - Orders/Labs/Meds Orders: Active Orders 24 hr Category Date Time Status Saline Lock Insert [OM.PC] Stat Oth 07/27/20 17:21 Ordered Labs: Laboratory Tests 07/27/20 07/27/20 07/27/20 Range/Units 17:38 17:38 18:01 WBC 7.76 (4.0-11.0) K/uL RBC 3.39 L (4.30-5.90) M/uL Hgb 9.6 L (12.0-16.0) g/dL Hct 28.7 L (36.0-46.0) % MCV 84.7 (80.0-98.0) fL MCH 28.3 (27.0-32.0) pg MCHC 33.4 (31.0-37.0) g/dL RDW Std Deviation 42.9 (28.0-62.0) fl RDW Coeff of Candido 14 (11.0-15.0) % Plt Count 429 H (150-400) K/uL MPV 8.70 (7.40-12.00) fL Neut % (Auto) 62.2 (48.0-80.0) % Lymph % (Auto) 28.9 (16.0-40.0) % [place] % (Auto) 7.3 (0.0-15.0) % Eos % (Auto) 1.3 (0.0-7.0) % Baso % (Auto) 0.3 (0.0-1.5) % Neut # (Auto) 4.8 (1.4-5.7) K/uL Lymph # (Auto) 2.2 (0.6-2.4) K/uL [place] # (Auto) 0.6 (0.0-0.8) K/uL Eos # (Auto) 0.1 (0.0-0.7) K/uL Baso # (Auto) 0.0 (0.0-0.1) K/uL Nucleated RBC % 0.0 /100WBC Nucleated RBCs # 0 K/uL Sodium 134 L (136-145) mmol/L Potassium 4.1 (3.5-5.1) mmol/L Chloride 102 (98-107) mmol/L Carbon Dioxide 18.4 L (21.0-32.0) mmol/L BUN 42 H (7.0-18.0) mg/dL Creatinine 1.8 H (0.6-1.0) mg/dL Est Cr Clr Drug Dosing 20.45 mL/min Estimated GFR (MDRD) 26.9 ml/min Glucose 114 H (74-106) mg/dL Calcium 9.3 (8.5-10.1) mg/dL Total Bilirubin 0.2 (0.2-1.0) mg/dL AST 16 (15-37) IU/L ALT 20 (14-63) IU/L Alkaline Phosphatase 84 (46-116) U/L Troponin I < 0.050 (0.000-0.056) ng/mL Total Protein 8.2 (6.4-8.2) g/dL Albumin 2.7 L (3.4-5.0) g/dL Globulin 5.5 H (2.6-4.0) g/dL Albumin/Globulin Ratio 0.5 L (0.9-1.6) TSH 3rd Generation 2.91 (0.36-3.74) uIU/mL SARS-CoV-2 RNA (KALLI) NEGATIVE (NEGATIVE) Meds: Medications Discontinued Medications Generic Name Dose Route Start Last Admin Trade Name Freq PRN Reason Stop Dose Admin Acetaminophen 1,000 mg 07/27/20 17:22 07/27/20 17:42 Tylenol Extra Strength PO 07/27/20 17:23 1,000 mg ONETIME ONE Administration Lactated Ringer's 1,000 mls @ 999 mls/hr 07/27/20 18:55 07/27/20 19:10 Ringers, Lactated IV 07/27/20 19:55 999 mls/hr .BOLUS ONE Administration Ibuprofen 400 mg 07/27/20 17:22 07/27/20 17:41 Motrin PO 07/27/20 17:23 400 mg ONETIME ONE Administration Metoclopramide HCl 5 mg 07/27/20 17:22 07/27/20 17:42 Reglan IVPUSH 07/27/20 17:23 5 mg ONETIME ONE Administration Sodium Chloride 10 ml 07/27/20 17:21 07/27/20 17:44 Saline Flush FLUSH 10 ml ASDIRECTED PRN Administration Keep Vein Open Sodium Chloride 2.5 ml 07/27/20 17:21 07/27/20 17:45 Saline Flush FLUSH 2.5 ml ASDIRECTED PRN Administration Keep Vein Open Departure - Departure Time of Disposition: 19:30 Disposition: Home, Self-Care 01 Condition: Good Clinical Impression: Generalized weakness Headache Qualifiers: Headache type: other headache syndrome Qualified Code(s): G44.89 - Other headache syndrome - Discharge Information *PRESCRIPTION DRUG MONITORING PROGRAM REVIEWED*: Not Applicable *COPY OF PRESCRIPTION DRUG MONITORING REPORT IN PATIENT CRISS: Not Applicable Instructions: Fatigue, General Headache Without Cause, [id number], Weakness Referrals: Judson Fulton MD [Primary Care Provider] - 3 Days (For reevaluation of symptoms.) Forms: ED Department Discharge Additional Instructions: You were seen in the emergency department for headache, lightheadedness, and generalized weakness. Your CT scan looks reassuring. Your blood work showed that your kidney function was slightly abnormal, which could be due to dehydration or illness. You were given some IV fluids. I am glad that you are feeling better after medications to treat your headache. Your neurologic examination looks normal. You do have some mild anemia and I would encourage you to follow-up for further work-up and treatment of this with your family doctor. Your thyroid testing was negative and your Covid testing was also negative. I recommend [id number] acetaminophen for headache along with trying to remove any bright lights or loud noises. I would not normally recommend ibup rofen or naproxen or aspirin given this can make your kidney function worse. Your primary/family doctor can provide further recommendations to help prevent and treat future headaches. Warning signs to come back to the ER include: Worsening headache, facial weakness or numbness, arm or leg numbness or weakness, vision changes, difficulty speaking or swallowing or walking, severe neck pain, or any other new or concerning symptoms. Please return the emergency department immediately if your symptoms worsen or if you feel worse. Thank you for choosing the [facility] emergency department in [place] for your medical needs today. It was a pleasure caring for you. The following information is given to patients seen in the emergency department who are being discharged. This information is to outline your options for follow-up care. We provide all patients seen in our emergency department with a follow-up referral. The need for follow-up, as well as the timing and circumstances, are variable depending upon the specifics of your emergency department visit. If you don't have a primary care physician on staff, we will provide you with a referral. We always advise you to contact your personal physician following an emergency department visit to inform them of the circumstance of the visit and for follow-up with them and/or the need for any referrals to a consulting specialist. The emergency department will also refer you to a specialist when appropriate. This referral assures that you have the opportunity for follow-up care with a specialist. All of these measure are taken in an effort to provide you with optimal care, which includes your follow-up. Under all circumstances we always encourage you to contact your private physician who remains a resource for coordinating your care. When calling for follow-up care, please make the office aware that this follow-up is from your recent emergency room visit. If for any reason you are refused follow-up, please contact the [facility] Emergency Department at and asked to speak to the emergency department charge nurse. If you do not have a primary care physician that is caring for you, you can contact these clinics below to set up an appointment to establish care: [facility] - Primary Care [address] [place] [id number] [id number] [place] [address] Sepsis Event Note (ED) - Evaluation Sepsis Screening Result: No Definite Risk - Focused Exam Vital Signs: Vital Signs Temp Pulse Resp BP Pulse Ox 07/27/20 20:16 35.4 C L 61 17 174/62 H 99 07/27/20 16:38 36.1 C 68 18 155/64 H 99 - My Orders Last 24 Hours: My Active Orders 07/27/20 17:21 Saline Lock Insert [OM.PC] Stat - Assessment/Plan Last 24 Hours: My Active Orders 07/27/20 17:21 Saline Lock Insert [OM.PC] Stat
[2020-07-27 18:28] LABS: BLOOD UREA NITROGEN,BUN 42 mg/dL (7.0-18.0); CARBON DIOXIDE,CO2 18.4 mmol/L (21.0-32.0); CHLORIDE,CL 102 mmol/L (98-107); GLUCOSE RANDOM 114 mg/dL (74-106); POTASSIUM,K 4.1 mmol/L (3.5-5.1); SODIUM,NA 134 mmol/L (136-145)
--- NOTE | 2020-07-27 18:31 | CT ---
INDICATION: Weakness, frontal headache for 1 week TECHNIQUE: Head CT without contrast. COMPARISON: None FINDINGS: CSF spaces: Within normal limits for age. Brain parenchyma: There are nonspecific low attenuation white matter changes consistent with chronic microvascular disease. No sign of mass, hemorrhage, or midline shift. Skull base and calvarium: Chronic appearing changes in both maxillary sinuses. The mastoid air cells demonstrate no acute or significant findings. The visualized orbits are grossly unremarkable. No skull fractures. There is intracranial atherosclerosis. Old left nasal bone fracture. IMPRESSION: 1. No acute findings. 2. Nonspecific white matter disease, typical of chronic microvascular disease. 3. Old left nasal bone fracture. Please note that all CT scans at this facility use dose modulation, iterative reconstruction, and/or weight-based dosing when appropriate to reduce radiation dose to as low as reasonably achievable. Dictated by Alisha Mckeon MD @ Jul 27 2020 6:27PM Signed by Dr. Alisha Mckeon @ Jul 27 2020 6:29PM
[2020-07-27] MEDS ORDERED: Lactated Ringers 1,000 ML IV ONE (18:55)
[2020-07-27 20:23] VITALS: BP 174/62; PULSE 61
== END 2020-07-27 20:16 | disposition home or self-care (01) ==
LOC: MW.ED 16:29
DX: G44.89 Other headache syndrome (principal); R53.1 Weakness; R00.1 Bradycardia, unspecified; I10 Essential (primary) hypertension; E11.9 Type 2 diabetes mellitus without complications; E03.9 Hypothyroidism, unspecified; Z88.5 Allergy status to narcotic agent; Z79.82 Long term (current) use of aspirin; Z79.899 Other long term (current) drug therapy; Z20.828 Contact with and (suspected) exposure to other viral communicable diseases
CPT/HCPCS: 36415; 70450; 80053; 84443; 84484; 85025; 93005; 96374; 99285; A9270; J2765; J7120; U0002; 93010; 99284

== ENCOUNTER 2021-10-24 16:57 | Emergency (ER) | payer MEDICARE ==
[2021-10-24 20:01] LABS: BLOOD UREA NITROGEN,BUN 27 mg/dL (7.0-18.0); CARBON DIOXIDE,CO2 16.3 mmol/L (21.0-32.0); CHLORIDE,CL 103 mmol/L (98-107); GLUCOSE RANDOM 125 mg/dL (74-106); POTASSIUM,K 4.2 mmol/L (3.5-5.1); SODIUM,NA 137 mmol/L (136-145)
[2021-10-24] MEDS ORDERED: Sodium Chloride 0.9% 1,000 ML IV ONE (20:14)
[2021-10-24] MEDS ORDERED: Ondansetron 4 MG/2 ML SDV IVPUSH ONE (20:15)
[2021-10-24] MEDS ORDERED: Ketorolac 30 MG/ML SDV IVPUSH ONE (20:15)
[2021-10-24] MEDS ORDERED: Calcium Carbonate 500 MG Tab.Chew PO ONE (20:17)
[2021-10-24] MEDS ORDERED: Lisinopril 10 MG Tab PO ONE (21:08)
[2021-10-24 23:31] VITALS: BP 166/84; PULSE 87
== END 2021-10-24 22:23 | disposition home or self-care (01) ==
LOC: MW.ED 16:57
DX: I12.9 Hypertensive chronic kidney disease with stage 1 through stage 4 chronic kidney disease, or unspecified chronic kidney disease (principal); N18.9 Chronic kidney disease, unspecified; E11.22 Type 2 diabetes mellitus with diabetic chronic kidney disease; G44.89 Other headache syndrome; E03.9 Hypothyroidism, unspecified; Z79.899 Other long term (current) drug therapy; Z88.5 Allergy status to narcotic agent; Z86.16 Personal history of COVID-19; Z79.82 Long term (current) use of aspirin
CPT/HCPCS: 36415; 70450; 80053; 82375; 82803; 84484; 85025; 93005; 96374; 96375; 99284; A9270; J1885; J2405; J7030

== ENCOUNTER 2021-11-23 11:46 | Observation (INO) | payer MEDICARE ==
[2021-11-23] MEDS ORDERED: Aspirin 81 MG Tab.Chew PO ONE (12:07)
[2021-11-23] MEDS ORDERED: Nitroglycerin 2% Oint 1 GM UD Packet TOP ONE (12:09)
[2021-11-23 12:39] LABS: CARBON DIOXIDE,CO2 14.7 mmol/L (21.0-32.0); POTASSIUM,K 4.7 mmol/L (3.5-5.1)
[2021-11-23] MEDS ORDERED: Ondansetron 4 MG/2 ML SDV IVPUSH PRN (16:35)
[2021-11-23] MEDS ORDERED: Docusate Sodium 100 MG Cap PO PRN (16:35)
[2021-11-23] MEDS ORDERED: Acetaminophen 325 MG Tab PO PRN (16:35)
[2021-11-23] MEDS ORDERED: Sodium Chloride 0.9% 10 ML Syringe FLUSH PRN (16:35)
[2021-11-23] MEDS ORDERED: Sodium Chloride 0.9% 2.5 ML Syringe FLUSH PRN (16:35)
[2021-11-23] MEDS ORDERED: Glucagon,Human Recombinant 1 MG Vial IM PRN (16:37)
[2021-11-23] MEDS ORDERED: 50% Dextrose in Water 50 ML Syringe IVPUSH PRN (16:37)
[2021-11-23] MEDS: Insulin Aspart 100 Units/ML 3 ML Pen SUBCUT SCH (18:19)
[2021-11-24] MEDS ORDERED: Calcium Carbonate 500 MG Tab.Chew PO PRN (00:34)
[2021-11-24 07:12] LABS: CARBON DIOXIDE,CO2 16.4 mmol/L (21.0-32.0)
[2021-11-24 07:22] LABS: POTASSIUM,K 5.8 mmol/L (3.5-5.1)
[2021-11-24] MEDS ORDERED: Levothyroxine 112 MCG Tab PO SCH (07:30)
[2021-11-24 08:34] LABS: BILIRUBIN INDIRECT 0.3
[2021-11-24] MEDS: Insulin Aspart 100 Units/ML 3 ML Pen SUBCUT SCH ×3 (08:34→17:08)
[2021-11-24] MEDS: Lisinopril 10 MG Tab PO SCH (08:36)
[2021-11-24] MEDS: Aspirin 81 MG Tab.EC PO SCH (08:36)
[2021-11-24] MEDS: amLODIPine 5 MG Tab PO SCH (08:39)
[2021-11-25 06:48] LABS: CARBON DIOXIDE,CO2 15.9 mmol/L (21.0-32.0); POTASSIUM,K 5.2 mmol/L (3.5-5.1)
[2021-11-25] MEDS ORDERED: Levothyroxine 125 MCG Tab PO SCH (07:30)
[2021-11-25] MEDS: amLODIPine 5 MG Tab PO SCH (08:13)
[2021-11-25] MEDS: Aspirin 81 MG Tab.EC PO SCH (08:13)
[2021-11-25] MEDS: Lisinopril 10 MG Tab PO SCH (08:14)
[2021-11-25] MEDS: Insulin Aspart 100 Units/ML 3 ML Pen SUBCUT SCH (08:14)
[2021-11-25 11:38] VITALS: BP 151/63; PULSE 55
== END 2021-11-25 12:35 | disposition home or self-care (01) ==
LOC: MW.ED 11:46 → MW.MS 15:08
PROVIDERS: ADMIT Student in an Organized Health Care Education/Training Program; ATTEND Student in an Organized Health Care Education/Training Program
DX: R07.2 Precordial pain (principal); E11.22 Type 2 diabetes mellitus with diabetic chronic kidney disease; I12.9 Hypertensive chronic kidney disease with stage 1 through stage 4 chronic kidney disease, or unspecified chronic kidney disease; N18.9 Chronic kidney disease, unspecified; D72.829 Elevated white blood cell count, unspecified; E03.9 Hypothyroidism, unspecified; D64.9 Anemia, unspecified; Z20.822 Contact with and (suspected) exposure to COVID-19; Z88.5 Allergy status to narcotic agent; Z79.82 Long term (current) use of aspirin; Z79.899 Other long term (current) drug therapy; Z79.890 Hormone replacement therapy
CPT/HCPCS: 36415; 36430; 71045; 80048; 80053; 81001; 82247; 82248; 82272; 82607; 82728; 82746; 82947; 83010; 83550; 83615; 83690; 83880; 84484; 85025; 85045; 85379; 86850; 86900; 86901; 86920; 93005; 99285; A9270; P9016; U0002; G0378

== ENCOUNTER 2022-02-22 23:13 | Emergency (ER) | payer MEDICARE, MEDICAID ==
[2022-02-22] MEDS ORDERED: Aspirin 81 MG Tab.Chew PO ONE (23:25)
[2022-02-22] MEDS: Nitroglycerin 0.4 MG Tab.SL SL PRN ×2 (23:37→23:57)
[2022-02-22 23:45] LABS: CARBON DIOXIDE,CO2 13.4 mmol/L (21.0-32.0); POTASSIUM,K 4.4 mmol/L (3.5-5.1)
[2022-02-23] MEDS ORDERED: Ondansetron 4 MG/2 ML SDV IVPUSH ONE (01:16)
[2022-02-23] MEDS ORDERED: Morphine 4 MG/ML VIAL IVPUSH ONE (01:16)
[2022-02-23] MEDS ORDERED: Nitroglycerin 2% Oint 1 GM UD Packet TOP ONE (04:32)
[2022-02-23] MEDS ORDERED: Heparin Sodium/0.45% NaCl 500 ML IV STA (05:04)
[2022-02-23] MEDS ORDERED: Heparin Sodium 5,000 Units/ML Vial IVPUSH ONE ×2 (05:05→11:30)
[2022-02-23 09:52] VITALS: BP 153/53; PULSE 79
[2022-02-23] MEDS ORDERED: Heparin Sodium/0.45% NaCl 500 ML IV SCH ×2 (11:15)
== END 2022-02-23 13:13 ==
LOC: MW.ED 23:13
DX: I24.9 Acute ischemic heart disease, unspecified (principal); I10 Essential (primary) hypertension; K21.9 Gastro-esophageal reflux disease without esophagitis; Z88.1 Allergy status to other antibiotic agents; Z88.5 Allergy status to narcotic agent; Z79.82 Long term (current) use of aspirin; Z79.899 Other long term (current) drug therapy; Z20.822 Contact with and (suspected) exposure to COVID-19
CPT/HCPCS: 36415; 71045; 71045-26; 80053; 84484; 85025; 85730; 93005; 96365; 96366; 96375; 96376; 99285-25; A9270-GY; J1644; J2270; J2405; U0002

== ENCOUNTER 2023-01-10 18:32 | Emergency (ER) | payer MEDICAID, MEDICARE ==
[2023-01-10] MEDS ORDERED: Acetaminophen 325 MG Tab PO ONE (19:27)
[2023-01-10] MEDS ORDERED: Ibuprofen 400 MG Tab PO ONE (19:27)
[2023-01-10] MEDS ORDERED: Lidocaine 4% 1 each Patch TOP STA (19:27)
[2023-01-10 20:28] LABS: BASOPHILS PERCENT AUTO 0.2 % (0.0-1.5); EOSINOPHILS PERCENT AUTO 0.4 % (0.0-7.0); HEMOGLOBIN 8.1 g/dL (12.0-16.0); LYMPHOCYTES ABSOLUTE AUTO 1.4 K/uL (0.6-2.4); LYMPHOCYTES PERCENT AUTO 24.5 % (16.0-40.0); MEAN CORPUSCULAR HEMOGLOBIN 32.3 pg (27.0-32.0); MEAN CORPUSCULAR HGB CONC 32.4 g/dL (31.0-37.0); MEAN CORPUSCULAR VOLUME 99.6 fL (80.0-98.0); MONOCYTES ABSOLUTE AUTO 0.2 K/uL (0.0-0.8); MONOCYTES PERCENT AUTO 4.4 % (0.0-15.0); NEUTROPHILS ABSOLUTE AUTO 3.9 K/uL (1.4-5.7); NEUTROPHILS PERCENT AUTO 70.5 % (48.0-80.0); NRBC ABSOLUTE 0 K/uL; NRBC PERCENT 0.4 /100WBC; PLATELET COUNT,PLT 208 K/uL (150-400); RED BLOOD CELL COUNT 2.51 M/uL (4.30-5.90); WHITE BLOOD CELL COUNT,WBC 5.51 K/uL (4.0-11.0)
[2023-01-10 20:46] LABS: ALBUMIN 4.2 g/dL (3.4-5.0); CALCIUM 8.7 mg/dL (8.5-10.1); CARBON DIOXIDE,CO2 11.5 mmol/L (21.0-32.0); CREATININE 5.1 mg/dL (0.6-1.0); EST CRCL DRUG DOSING (CG) 6.96 mL/min; MAGNESIUM 1.9 mg/dL (1.8-2.4); PHOSPHORUS 6.6 mg/dL (2.6-4.7); POTASSIUM,K 5.8 mmol/L (3.5-5.1); PROTEIN TOTAL,TP 8.2 g/dL (6.4-8.2)
[2023-01-10] MEDS ORDERED: 50% Dextrose in Water 50 ML Syringe IVPUSH PRN (20:57)
[2023-01-10] MEDS ORDERED: Glucagon,Human Recombinant 1 MG Vial IM PRN (20:57)
[2023-01-10] MEDS ORDERED: Insulin Regular, Human 100 Units/ML 10 ML Vial IVPUSH ONE (20:57)
[2023-01-10] MEDS ORDERED: Calcium Gluconate 10% 1 GM/10 ML SDV IV ONE (20:58)
[2023-01-10] MEDS ORDERED: Lactated Ringers 1,000 ML IV SCH (21:00)
[2023-01-10 21:08] LABS: INR 1.02 (0.86-1.11); PTT,PARTIAL THROMBOPLSTIN TIME 30.8 SEC (23.9-30.7)
[2023-01-11 04:56] VITALS: BP 129/50; PULSE 46
== END 2023-01-10 23:15 ==
LOC: MW.ED 18:32
DX: N19 Unspecified kidney failure (principal); I10 Essential (primary) hypertension; E11.9 Type 2 diabetes mellitus without complications; E03.9 Hypothyroidism, unspecified; Z86.16 Personal history of COVID-19; Z88.2 Allergy status to sulfonamides; Z88.5 Allergy status to narcotic agent; Z79.82 Long term (current) use of aspirin; Z79.899 Other long term (current) drug therapy
CPT/HCPCS: 36415; 70450; 72125; 72128; 80053; 82947; 83735; 83880; 84100; 84484; 85025; 85610; 85730; 86850; 86900; 86901; 93005; 96361; 96374; 96375; 99285; A9270; J0612; J7120; 93010; 99291; J1815-GY; J3490

== ENCOUNTER 2023-03-01 15:25 | Emergency (ER) | payer MEDICARE ==
[2023-03-01] MEDS ORDERED: Sodium Chloride 0.9% 10 ML Syringe FLUSH PRN (15:35)
[2023-03-01] MEDS ORDERED: Sodium Chloride 0.9% 2.5 ML Syringe FLUSH PRN (15:35)
[2023-03-01 16:00] LABS: BASOPHILS PERCENT AUTO 0.4 % (0.0-1.5); EOSINOPHILS ABSOLUTE AUTO 0.2 K/uL (0.0-0.7); EOSINOPHILS PERCENT AUTO 1.7 % (0.0-7.0); HEMATOCRIT 29.4 % (36.0-46.0); HEMOGLOBIN 9.5 g/dL (12.0-16.0); LYMPHOCYTES ABSOLUTE AUTO 2.1 K/uL (0.6-2.4); LYMPHOCYTES PERCENT AUTO 18.8 % (16.0-40.0); MEAN CORPUSCULAR HEMOGLOBIN 29.7 pg (27.0-32.0); MEAN CORPUSCULAR HGB CONC 32.3 g/dL (31.0-37.0); MEAN CORPUSCULAR VOLUME 91.9 fL (80.0-98.0); MONOCYTES ABSOLUTE AUTO 0.7 K/uL (0.0-0.8); MONOCYTES PERCENT AUTO 5.8 % (0.0-15.0); NEUTROPHILS ABSOLUTE AUTO 8.3 K/uL (1.4-5.7); NEUTROPHILS PERCENT AUTO 73.3 % (48.0-80.0); NRBC ABSOLUTE 0 K/uL; PLATELET COUNT,PLT 360 K/uL (150-400); WHITE BLOOD CELL COUNT,WBC 11.36 K/uL (4.0-11.0)
[2023-03-01 16:20] LABS: ALBUMIN 3.3 g/dL (3.4-5.0); BILIRUBIN TOTAL 0.3 mg/dL (0.2-1.0); CALCIUM 8.2 mg/dL (8.5-10.1); CARBON DIOXIDE,CO2 17.4 mmol/L (21.0-32.0); CREATININE 1.8 mg/dL (0.6-1.0); EST CRCL DRUG DOSING (CG) 19.73 mL/min; POTASSIUM,K 4.6 mmol/L (3.5-5.1); PROTEIN TOTAL,TP 7.2 g/dL (6.4-8.2)
[2023-03-01 16:22] LABS: A/G RATIO 0.9 (0.9-1.6)
[2023-03-01 16:23] LABS: MAGNESIUM 1.1 mg/dL (1.8-2.4)
[2023-03-01] MEDS ORDERED: Magnesium Sulfate/Water 4 GM in Premix Bag 1 BAG IV STA (17:47)
[2023-03-01 20:30] VITALS: BP 180/80; PULSE 73
== END 2023-03-01 20:48 | disposition home or self-care (01) ==
LOC: MW.ED 15:25
DX: R07.9 Chest pain, unspecified (principal); E83.42 Hypomagnesemia; E11.22 Type 2 diabetes mellitus with diabetic chronic kidney disease; I12.9 Hypertensive chronic kidney disease with stage 1 through stage 4 chronic kidney disease, or unspecified chronic kidney disease; N18.9 Chronic kidney disease, unspecified; E03.9 Hypothyroidism, unspecified; D63.1 Anemia in chronic kidney disease; Z88.1 Allergy status to other antibiotic agents; Z88.5 Allergy status to narcotic agent; Z79.82 Long term (current) use of aspirin; Z79.899 Other long term (current) drug therapy; Z86.16 Personal history of COVID-19
CPT/HCPCS: 36415; 71046; 80053; 83735; 83880; 84484; 85025; 93005; 96365; 96366; 99285; J3475; J3490